=== PATIENT | female | born 1935 | race Caucasian/White ===

== ENCOUNTER 2017-05-25 22:33 | Emergency (ER) | payer OTHER ==
[~2017-05-25] VITALS: Ht 157.5 cm; Wt 56.0 kg
[~2017-05-25 22:33] MED LIST: AMLO10 PO; ATEN-104 PO; TERA2CAP3 PO
[2017-05-25 22:34] VITALS: BP 178/95; PULSE 85; RESP 16; TEMP 98.5; O2SAT 95
[2017-05-25 23:08] VITALS: BP 232/99; PULSE 73; RESP 18; O2SAT 97
[2017-05-25 23:12] VITALS: TEMP 97
[2017-05-25 23:42] VITALS: O2SAT 99
--- NOTE | 2017-05-25 23:44 | PD ---
HPI Chief Complaint: Neuro Symptoms/ Deficits Time Seen by Provider: 23:35 Travel History International Travel<30 days: No Contact w/Intl Traveler<30days: No Traveled to known affect area: No History of Present Illness HPI C/O NUMBNESS TO RIGHT FACE THAT HAS NOT GONE AWAY IN THE PAST 6HRS, PER PATIENT HER PCP IS DR MEZA, CAN'T RECALL NAMES OF ANTIHYPERTENSION MEDICINE. PATIENT ABLE TO MOVE/WALK ON HER OWN AND SPEAKS CLEARLY. PFSH Past Medical History Asthma: Yes Atrial Fibrillation: Yes Diminished Hearing: No Hypertension: Yes : 3 Para: 3 Past Surgical History Abdominal Surgery: Yes (BURST ADRENAL GLAND) Hysterectomy: Yes (PARTIAL IN ') Other Surgery: Yes Social History Alcohol Use: No Tobacco Use: No Substance Use: No Allergies-Medications (Allergen,Severity, Reaction): Coded Allergies: Sulfa (Sulfonamide Antibiotics) (Unverified Allergy, Severe, Swelling, ) HER MOUTH AND LIPS SWELL Reported Meds & Prescriptions Reported Meds & Active Scripts Active Active Prescriptions or Reported Medications Unobtainable Review of Systems Except as stated in HPI: all other systems reviewed are Neg Cardiovascular: Positive: Other (HTN) Neurologic: Positive: Paresthesia Physical Exam Narrative GENERAL: SKIN: Warm and dry. HEAD: Atraumatic. Normocephalic. EYES: Pupils equal and round. No scleral icterus. No injection or drainage. ENT: No nasal bleeding or discharge. Mucous membranes pink and moist. NECK: Trachea midline. No JVD. CARDIOVASCULAR: Regular rate and rhythm. RESPIRATORY: No accessory muscle use. Clear to auscultation. Breath sounds equal bilaterally. GASTROINTESTINAL: Abdomen soft, non-tender, nondistended. Hepatic and splenic margins not palpable. MUSCULOSKELETAL: Extremities without clubbing, cyanosis, or edema. No obvious deformities. NEUROLOGICAL: Awake and alert. No obvious cranial nerve deficits. Motor grossly within normal limits. Five out of 5 muscle strength in the arms and legs. Normal speech. ONLY DECREASED SENSATION TO RIGHT HALF OF FACE PSYCHIATRIC: Appropriate mood and affect; insight and judgment normal. Data Data Last Documented VS Vital Signs Date Time Temp Pulse Resp B/P (MAP) Pulse Ox O2 Delivery O2 Flow Rate FiO2 05/26/17 00:13 156/75 (102) 05/25/17 23:42 99 05/25/17 23:12 97.0 05/25/17 23:08 73 18 Room Air Orders Orders Electrocardiogram (05/25/17 23:35) Complete Blood Count With Diff (05/25/17 23:35) Comprehensive Metabolic Panel (05/25/17 23:35) Ckmb (Isoenzyme) Profile (05/25/17 23:35) Troponin I (05/25/17 23:35) B-Type Natriuretic Peptide (05/25/17 23:35) Prothrombin Time / Inr (Pt) (05/25/17 23:35) Act Partial Throm Time (Ptt) (05/25/17 23:35) Lipase (05/25/17 23:35) Chest, Single Ap (05/25/17 23:35) Ct Brain W/O Iv Contrast(Rout) (05/25/17 23:35) Iv Access Insert/Monitor (05/25/17 23:35) Ecg Monitoring (05/25/17 23:35) Oximetry (05/25/17 23:35) Hydralazine Inj (Apresoline Inj) (05/25/17 23:45) Labs Laboratory Tests Test 05/25/17 23:45 White Blood Count 6.2 TH/MM3 Red Blood Count 4.35 MIL/MM3 Hemoglobin 13.5 GM/DL Hematocrit 38.8 % Mean Corpuscular Volume 89.2 FL Mean Corpuscular Hemoglobin 30.9 PG Mean Corpuscular Hemoglobin Concent 34.7 % Red Cell Distribution Width 13.3 % Platelet Count 244 TH/MM3 Mean Platelet Volume 7.3 FL Neutrophils (%) (Auto) 64.0 % Lymphocytes (%) (Auto) 18.4 % Monocytes (%) (Auto) 14.8 % Eosinophils (%) (Auto) 1.5 % Basophils (%) (Auto) 1.3 % Neutrophils # (Auto) 4.0 TH/MM3 Lymphocytes # (Auto) 1.1 TH/MM3 Monocytes # (Auto) 0.9 TH/MM3 Eosinophils # (Auto) 0.1 TH/MM3 Basophils # (Auto) 0.1 TH/MM3 CBC Comment DIFF FINAL Differential Comment Prothrombin Time 10.5 SEC Prothromb Time International Ratio 1.0 RATIO Activated Partial Thromboplast Time 25.7 SEC Blood Urea Nitrogen 17 MG/DL Creatinine 0.65 MG/DL Random Glucose 98 MG/DL Total Protein 6.9 GM/DL Albumin 3.8 GM/DL Calcium Level 8.6 MG/DL Alkaline Phosphatase 96 U/L Aspartate Amino Transf (AST/SGOT) 11 U/L Alanine Aminotransferase (ALT/SGPT) 9 U/L Total Bilirubin 0.5 MG/DL Sodium Level 133 MEQ/L Potassium Level 3.8 MEQ/L Chloride Level 99 MEQ/L Carbon Dioxide Level 24.7 MEQ/L Anion Gap 9 MEQ/L Estimat Glomerular Filtration Rate 87 ML/MIN Total Creatine Kinase 54 U/L Troponin I LESS THAN 0.02 NG/ML B-Type Natriuretic Peptide 11 PG/ML Lipase 519 U/L MDM Medical Decision Making Medical Screen Exam Complete: Yes Emergency Medical Condition: Yes Medical Record Reviewed: Yes Interpretation(s) NSR 66, FIRST DEGREE AV BLOCK, NO STEMI PATTERN Differential Diagnosis ICH V CVA V HTN URGENCY V HTN ENCEPHALOPATHY Narrative Course CT HEAD NEG FOR ICH, ON EKG NO E/O STEMI, NEG TROPONIN, NORMAL KIDNEY FUNCTION, AND PATIENT'S BLOOD PRESSURE DECREASED APPROPRIATELY WITHOUT DIFFICULTY AND NO WORSENING OF SYMPTOMS DURING EXAM. Critical Care Narrative CRITICAL CARE NOTE: With evaluation of the patient, labs, EKG, receipt of radiologic studies, administration of medications, reevaluation the patient and discussion of the patient with the admitting physicians, the total critical care time was [60] minutes. Time to perform other separately billable procedures was not included in the critical care time. Diagnosis Primary Impression: Hypertensive urgency Additional Impressions: PARESTHESIA ASYMPTOMATIC ELEVATION OF LIPASE Patient Instructions: Chronic Hypertension (ED), General Instructions Additional Instructions: PLEASE CALL AND MAKE FOLLOWUP APPOINTMENT WITH DR MEZA FOR FURTHER BLOOD PRESSURE CONTROL Scripts Unable to Obtain Active Prescriptions or Reported Meds Disposition: 01 DISCHARGE HOME Condition: Stable Haris Hunter MD May 25, 2017 23:44
[2017-05-25] MEDS ORDERED: hydrALAZINE HCL 20 MG/ML VIAL IV PUSH ONE (23:45)
[2017-05-26 00:10] LABS: BASOPHIL # 0.1 TH/MM3 (0-0.2); BASOPHIL % 1.3 % (0.0-2.0); EOSINOPHIL # 0.1 TH/MM3 (0-0.4); EOSINOPHIL % 1.5 % (0.0-4.0); HEMATOCRIT 38.8 % (35.0-46.0); HEMO FLAGS DIFF FINAL; LYMPH % 18.4 % (9.0-44.0); LYMPHOCYTE # 1.1 TH/MM3 (1.0-4.8); MEAN CELL VOLUME 89.2 FL (80.0-100.0); MEAN CORPUSCULAR HEMOGLOBIN 30.9 PG (27.0-34.0); MEAN CORPUSCULAR HGB CONC 34.7 % (32.0-36.0); MONO % 14.8 % (0.0-8.0); PLATELET COUNT 244 TH/MM3 (150-450); RED BLOOD COUNT 4.35 MIL/MM3 (4.00-5.30); RED CELL DISTRIBUTION WIDTH 13.3 % (11.6-17.2); WHITE BLOOD COUNT 6.2 TH/MM3 (4.0-11.0)
[2017-05-26 00:13] VITALS: BP 156/75
[2017-05-26 00:16] LABS: ANION GAP 9 MEQ/L (5-15); AST (GOT) 11 U/L (15-37); BICARBONATE 24.7 MEQ/L (21.0-32.0); BLOOD UREA NITROGEN 17 MG/DL (7-18); CHLORIDE 99 MEQ/L (98-107); GLOMERULAR FILTRATION RATE 87 ML/MIN (>89); POTASSIUM 3.8 MEQ/L (3.5-5.1); SODIUM (NA) 133 MEQ/L (136-145)
[2017-05-26 00:17] LABS: APTT (PATIENT) 25.7 SEC (24.3-30.1); PROTHROMBIN TIME - PATIENT 10.5 SEC (9.8-11.6)
--- NOTE | 2017-05-26 00:19 | RADRPT ---
EXAM DATE/TIME: 05/25/2017 23:46 [facility] COMPARISON: No previous studies available for comparison. INDICATIONS : Short of breath. MEDICAL HISTORY : None. SURGICAL HISTORY : None. ENCOUNTER: Initial ACUITY: 1 day PAIN SCORE: 0/10 LOCATION: Bilateral chest FINDINGS: A single view of the chest demonstrates the lungs to be symmetrically aerated without evidence of mas s, infiltrate or effusion. Minimal linear scarring at the lung bases. The cardiomediastinal contours are unremarkable. Osseous structures are intact. CONCLUSION: 1. Minimal linear scarring at the lung bases. No consolidation or effusion. Mild scoliosis. Ricky Masters MD on May 26, 2017 at 0:16 Board Certified Radiologist. This report was verified electronically.
[2017-05-26 00:20] LABS: ALKALINE PHOSPHATASE 96 U/L (45-117); ALT (GPT) 9 U/L (10-53); TOTAL BILIRUBIN ADULT 0.5 MG/DL (0.2-1.0)
[2017-05-26 00:22] LABS: CREATINE KINASE 54 U/L (26-192)
--- NOTE | 2017-05-26 01:29 | RADRPT ---
EXAM DATE/TIME: 05/26/2017 01:07 [facility] COMPARISON: No previous studies available for comparison. INDICATIONS : Headaches. RADIATION DOSE: 31.90 CTDIvol (mGy) MEDICAL HISTORY : Cardiovascular disease. Hypertension. SURGICAL HISTORY : Hysterectomy. ENCOUNTER: Initial ACUITY: 1 day PAIN SCALE: 5/10 LOCATION: Right cranial TECHNIQUE: Multiple contiguous axial images were obtained of the head. Using automated exposure control and adj ustment of the mA and/or kV according to patient size, radiation dose was kept as low as reasonably a chievable to obtain optimal diagnostic quality images. DICOM format image data is available electro nically for review and comparison. FINDINGS: CEREBRUM: The ventricles are normal for age. No evidence of midline shift, mass lesion, hemorrhage or acute in farction. No extra-axial fluid collections are seen. POSTERIOR FOSSA: The cerebellum and brainstem are intact. The 4th ventricle is midline. The cerebellopontine angle i s unremarkable. EXTRACRANIAL: The visualized portion of the orbits is intact. SKULL: The calvaria is intact. No evidence of skull fracture. CONCLUSION: Normal examination. Ricky Masters MD on May 26, 2017 at 1:25 Board Certified Radiologist. This report was verified electronically.
[2017-05-26] MEDS ORDERED: BUTA1CAP2 PO (01:39)
[2017-05-26] MEDS ORDERED: traMADol HCL 50 MG TAB PO ONE (01:45)
--- NOTE | 2017-05-26 12:13 | EKG ---
Date Performed: 05/25/2017 Time Performed: 23:11:55 PTAGE: 81 years EKG: Sinus rhythm WITH FIRST DEGREE AV BLOCK ABNORMAL ECG Compared to prior tracing no significant change PREVIOUS TRACING : 04/23/1993 15.26 DOCTOR: Danie Chen Interpretating Date/Time 05/26/2017 12:10:22
== END 2017-05-26 01:54 | disposition home or self-care (01) ==
LOC: NEPE 22:33
DX: I16.0 Hypertensive urgency (principal); I48.91 Unspecified atrial fibrillation
CPT/HCPCS: 70450; 71010; 80053; 82550; 83690; 83880; 84484; 85025; 85610; 85730; 93005; 96374; 99291; J0360

== ENCOUNTER 2018-02-15 11:49 | Inpatient (IN) | payer OTHER ==
[2018-02-15] VITALS (7 sets, daily range): BP systolic 130–198; BP diastolic 61–89; PULSE 67–84; RESP 18–20; TEMP 97.2–97.4; O2SAT 97–99
[~2018-02-15] VITALS: Ht 162.6 cm; Wt 67.0 kg
[~2018-02-15 11:49] MED LIST changes: -AMLO10 PO; -ATEN-104 PO; +BUTA1CAP2 PO; -TERA2CAP3 PO
[2018-02-15] MEDS ORDERED: [UNRECOGNIZED DRUG - REMARK] PO (12:26)
[2018-02-15] MEDS ORDERED: [UNRECOGNIZED DRUG - REMARK] PO (12:26)
[2018-02-15] MEDS ORDERED: SODIUM CHLORIDE 0.9% FLUSH 10 ML FLUSH IV FLUSH PRN ×2 (12:30→16:15)
[2018-02-15 12:43] LABS: AUTOMATED NEUTROPHIL # 11.6 TH/MM3 (1.8-7.7); BASOPHIL # 0.1 TH/MM3 (0-0.2); BASOPHIL % 0.5 % (0.0-2.0); HEMATOCRIT 39.5 % (35.0-46.0); HEMOGLOBIN 13.6 GM/DL (11.6-15.3); LYMPH % 3.4 % (9.0-44.0); LYMPHOCYTE # 0.5 TH/MM3 (1.0-4.8); MEAN CORPUSCULAR HEMOGLOBIN 30.3 PG (27.0-34.0); MEAN CORPUSCULAR HGB CONC 34.5 % (32.0-36.0); MONO % 9.6 % (0.0-8.0); MONOCYTE # 1.3 TH/MM3 (0-0.9); NEUT % 86.5 % (16.0-70.0); PLATELET COUNT 275 TH/MM3 (150-450); RED BLOOD COUNT 4.49 MIL/MM3 (4.00-5.30); RED CELL DISTRIBUTION WIDTH 13.4 % (11.6-17.2); WHITE BLOOD COUNT 13.4 TH/MM3 (4.0-11.0)
[2018-02-15 13:10] LABS: ALBUMIN 3.7 GM/DL (3.4-5.0); ALKALINE PHOSPHATASE 80 U/L (45-117); ALT (GPT) 1112 U/L (10-53); AST (GOT) 573 U/L (15-37); BICARBONATE 21.5 MEQ/L (21.0-32.0); BLOOD UREA NITROGEN 20 MG/DL (7-18); CALCIUM 8.7 MG/DL (8.5-10.1); CHLORIDE 91 MEQ/L (98-107); CREATININE 0.75 MG/DL (0.50-1.00); GLOMERULAR FILTRATION RATE 74 ML/MIN (>89); GLUCOSE,RANDOM 134 MG/DL (74-106); TOTAL PROTEIN 6.4 GM/DL (6.4-8.2)
[2018-02-15 13:14] LABS: SODIUM (NA) 123 MEQ/L (136-145)
[2018-02-15] MEDS ORDERED: SODIUM CHLOR 0.9% 1000 ML INJ 1,000 ML IV ONE (13:15)
--- NOTE | 2018-02-15 13:26 | PD ---
HPI . Abdominal pain Chief Complaint: Neuro Symptoms/ Deficits Time Seen by Provider: 12:13 Travel History International Travel<30 days: No Contact w/Intl Traveler<30days: No Traveled to known affect area: No History of Present Illness HPI Patient presents with a chief complaint to me of mid abdominal pain. The chief complaint at triage was facial numbness. Patient reports onset of mid abdominal pain 3 days ago. She describes it as crampy. It is getting progressively worse. It is rated 10/10. It is associated with a few episodes of emesis and one loose she denies fever. She denies urinary tract symptoms. Patient is status post colostomy with reversal. [facility] Past Medical History Asthma: Yes Atrial Fibrillation: Yes Diminished Hearing: No Hypertension: Yes Tetanus Vaccination: > 5 Years ?: Not : 3 Para: 3 Past Surgical History Abdominal Surgery: Yes (BURST ADRENAL GLAND) Hysterectomy: Yes (PARTIAL IN ) Other Surgery: Yes Social History Alcohol Use: No Tobacco Use: No Substance Use: No Allergies-Medications (Allergen,Severity, Reaction): Coded Allergies: Sulfa (Sulfonamide Antibiotics) (Unverified Allergy, Severe, Swelling, ) HER MOUTH AND LIPS SWELL Reported Meds & Prescriptions Reported Meds & Active Scripts Active Reported [headache pill] PO DAILY [htn pill] PO DAILY Review of Systems Except as stated in HPI: all other systems reviewed are Neg General / Constitutional: No: Fever, Chills Gastrointestinal: Positive: Nausea, Vomiting, Diarrhea, Abdominal Pain Genitourinary: No: Urgency, Frequency, Dysuria Neurologic: Positive: Paresthesia Physical Exam Narrative GENERAL: Awake and alert and in no acute distress. SKIN: warm/dry. HEAD: Normocephalic. Atraumatic. EYES: Pupils equal and round. Extraocular movements are intact. Anicteric. ENT: Mucous membranes pink and moist. NECK: Supple. Full range of motion without pain.. CARDIOVASCULAR: Regular rate and rhythm. Heart sounds are normal. RESPIRATORY: No accessory muscle use. Clear to auscultation. Breath sounds equal bilaterally. GASTROINTESTINAL: Abdomen soft. Right upper quadrant tenderness. Bowel sounds present. Nondistended. Well-healed previous colostomy/reversal scar in the left lower quadrant. MUSCULOSKELETAL: No obvious deformities. Normal muscle tone. NEUROLOGICAL: Awake and alert. No obvious cranial nerve deficits. Motor grossly within normal limits. Normal speech. PSYCHIATRIC: Appropriate mood and affect; insight and judgment normal. Data Data Last Documented VS Vital Signs Date Time Temp Pulse Resp B/P (MAP) Pulse Ox O2 Delivery O2 Flow Rate FiO2 02/15/18 14:32 67 18 183/81 (115) 99 Room Air 02/15/18 12:00 97.2 Orders Orders Complete Blood Count With Diff (02/15/18 12:23) Comprehensive Metabolic Panel (02/15/18 12:23) Lipase (02/15/18 12:23) Urinalysis - C+S If Indicated (02/15/18 12:23) Ct Abd/Pel W Iv Contrast(Rout) (02/15/18 12:23) Iv Access Insert/Monitor (02/15/18 12:23) Ecg Monitoring (02/15/18 12:23) Oximetry (02/15/18 12:23) Sodium Chloride 0.9% Flush (Ns Flush) (02/15/18 12:30) Electrocardiogram (02/15/18 12:23) Sodium Chlor 0.9% 1000 Ml Inj (Ns 1000 M (02/15/18 13:15) Iohexol 350 Inj (Omnipaque 350 Inj) (02/15/18 13:40) Piperacil-Tazo 3.375 Gm Premix (Zosyn 3. (02/15/18 15:15) Consult General Surgery (02/15/18 ) Urine Culture (02/15/18 14:30) (Hub Use Only)Inp Phy Cons/Ref (02/15/18 ) Consult [place] Nfs (02/15/18 ) Us Abdomen Gallbladder (02/15/18 ) Labs Laboratory Tests Test 02/15/18 12:30 02/15/18 14:30 White Blood Count 13.4 TH/MM3 Red Blood Count 4.49 MIL/MM3 Hemoglobin 13.6 GM/DL Hematocrit 39.5 % Mean Corpuscular Volume 88.0 FL Mean Corpuscular Hemoglobin 30.3 PG Mean Corpuscular Hemoglobin Concent 34.5 % Red Cell Distribution Width 13.4 % Platelet Count 275 TH/MM3 Mean Platelet Volume 7.0 FL Neutrophils (%) (Auto) 86.5 % Lymphocytes (%) (Auto) 3.4 % Monocytes (%) (Auto) 9.6 % Eosinophils (%) (Auto) 0.0 % Basophils (%) (Auto) 0.5 % Neutrophils # (Auto) 11.6 TH/MM3 Lymphocytes # (Auto) 0.5 TH/MM3 Monocytes # (Auto) 1.3 TH/MM3 Eosinophils # (Auto) 0.0 TH/MM3 Basophils # (Auto) 0.1 TH/MM3 CBC Comment DIFF FINAL Differential Comment Blood Urea Nitrogen 20 MG/DL Creatinine 0.75 MG/DL Random Glucose 134 MG/DL Total Protein 6.4 GM/DL Albumin 3.7 GM/DL Calcium Level 8.7 MG/DL Alkaline Phosphatase 80 U/L Aspartate Amino Transf (AST/SGOT) 573 U/L Alanine Aminotransferase (ALT/SGPT) 1112 U/L Total Bilirubin 2.0 MG/DL Sodium Level 123 MEQ/L Potassium Level 3.8 MEQ/L Chloride Level 91 MEQ/L Carbon Dioxide Level 21.5 MEQ/L Anion Gap 11 MEQ/L Estimat Glomerular Filtration Rate 74 ML/MIN Lipase 289 U/L Urine Color Julainn Urine Turbidity HAZY Urine pH 5.0 Urine Specific [place] 1.034 Urine Protein NEG mg/dL Urine Glucose (UA) NEG mg/dL Urine Ketones TRACE mg/dL Urine Occult Blood MOD Urine Nitrite NEG Urine Bilirubin NEG Urine Urobilinogen 4.0 OR GREATER mg/dL Urine Leukocyte Esterase MOD Urine RBC 2 /hpf Urine WBC 18 /hpf Urine Squamous Epithelial Cells 2 /hpf Urine Bacteria MANY /hpf Urine Mucus FEW /lpf Microscopic Urinalysis Comment CULTURE INDICATED MDM Medical Decision Making Medical Screen Exam Complete: Yes Emergency Medical Condition: Yes Interpretation(s) EKG shows a sinus rhythm with first-degree AV block. No acute ischemic changes. Differential Diagnosis Differential diagnosis of abdominal pain includes but is not limited to gastritis, pancreatitis, hepatitis, gastroenteritis, constipation, urinary retention, peptic ulcer disease, diverticulitis or appendicitis Narrative Course This patient presents with a chief complaint of mid abdominal pain with some occasional emesis and one loose stool. She has had previous abdominal surgery. CBC & BMP Diagram 02/15/18 12:30 Total Protein 6.4, Albumin 3.7, Calcium Level 8.7, Alkaline Phosphatase 80, Aspartate Amino Transf (AST/SGOT) 573 H, Alanine Aminotransferase (ALT/SGPT) 1112 H, Total Bilirubin 2.0 H I have ordered a liter of fluid. UA indicates a urinary tract infection. Zosyn has already been ordered for acute cholecystitis. It should cover a UTI as well. Last Impressions Abdomen/Pelvis CT 02/15/18 1223 Signed Impressions: CONCLUSION: 1. Moderately distended gallbladder with questionable trace pericholecystic fl uid. Cannot exclude acute cholecystitis in the appropriate clinical setting. Co nsider further evaluation with ultrasound exam. 2. Mild airspace consolidation in the inferior lingula and right middle lobe w hich may reflect aspiration, if so likely chronic. 3. Ancillary findings include sigmoid diverticulosis, small hiatal hernia, deg enerative spondylosis of the lumbar spine and probable leiomyomatous uterus. Physician Communication Physician Communication Dr. Cisse Diagnosis Primary Impression: Abdominal pain Qualified Codes: R10.84 - Generalized abdominal pain Additional Impressions: Hyponatremia Acute cholecystitis Urinary tract infection Qualified Codes: N39.0 - Urinary tract infection, site not specified Admitting Information Admitting Physician Requests: Admit Condition: Stable Veronica Iyer MD Feb 15, 2018 13:25
[2018-02-15] MEDS ORDERED: IOHEXOL 350 MG/ML 10 ML VIAL (for RAD DIAG) IVCONTRAST ONE (13:40)
--- NOTE | 2018-02-15 14:48 | RADRPT ---
EXAM DATE: 02/15/2018 1:53 PM EDT AGE/SEX: 82 years / Female INDICATIONS: Diffuse abdomen pain for two days. CLINICAL DATA: This is the patient's initial encounter. Patient reports that signs and symptoms have been present for 2 days and indicates a pain score of 5/10. MEDICAL/SURGICAL HISTORY: Hypertension. Hysterectomy. ORAL CONTRAST: No oral contrast ingested. RADIATION DOSE: 6.64 CTDI (mGy) COMPARISON: No prior exams available for comparison. TECHNIQUE: Multiple contiguous axial images were obtained through the abdomen and pelvis following b olus infusion of 80 ml Omnipaque 350 (iohexol) nonionic water-soluble contrast as a single exam dos e. No oral contrast ingested. Using automated exposure control and adjustment of the mA and/or kV ac cording to patient size, the radiation dose was kept as low as reasonably achievable to obtain optima l diagnostic quality images. FINDINGS: Visualization is limited by motion artifact. LOWER LUNGS: Mild airspace consolidation in the inferior lingula and right middle lobe. LIVER: The liver has a homogeneous density without space-occupying lesion. There is no dilation of t he biliary tree. Gallbladder is moderately distended with questionable trace pericholecystic fluid. SPLEEN: Homogeneous density without enlargement. PANCREAS: Unremarkable without mass or calcification. KIDNEYS: Kidneys demonstrate symmetrical enhancement and are symmetrical in size without evidence fo r radiopaque renal calculi or hydronephrosis. ADRENAL GLANDS: Unremarkable. AORTA: Moderate vascular calcifications of the abdominal aorta without aneurysm. BOWEL/MESENTERY: Sigmoid diverticulosis. Small hiatal hernia. No dilated loops of bowel. No free flu id or drainable fluid collections. ABDOMINAL WALL: Intact. RETROPERITONEUM: No evidence of adenopathy in the retrocrural, para-aortic, or deep pelvic regions. BLADDER: Contours are smooth. REPRODUCTIVE: Patient reportedly has had a hysterectomy. However, there is destruction the pelvis co nsistent with uterus containing a partially calcified myometrial mass. BONY STRUCTURES: Multilevel degenerative spondylosis of the lumbar spine. CONCLUSION: 1. Moderately distended gallbladder with questionable trace pericholecystic fluid. Cannot exclude ac venetie ira cholecystitis in the appropriate clinical setting. Consider further evaluation with ultrasound ex am. 2. Mild airspace consolidation in the inferior lingula and right middle lobe which may reflect aspir ation, if so likely chronic. 3. Ancillary findings include sigmoid diverticulosis, small hiatal hernia, degenerative spondylosis of the lumbar spine and probable leiomyomatous uterus. Electronically signed by: Luis Enrique Camilo MD 02/15/2018 2:46 PM EDT
[2018-02-15 15:05] LABS: BACTERIA, URINE MANY /hpf; BILIRUBIN, URINE NEG (NEG); BLOOD, URINE MOD (NEG); GLUCOSE,URINE NEG (NEG); KETONE, URINE TRACE mg/dL (NEG); MUCUS URINE FEW /lpf (OCC); NITRITE,URINE NEG (NEG); SQUAMOUS EPITHELIAL CELL URINE 2 /hpf (0-5); URINE COLOR Amber (YELLW/STRAW); URINE LEUKOCYTE ESTERASE MOD (NEG)
[2018-02-15] MEDS ORDERED: PIPERACIL-TAZO 3.375 GM PREMIX 50 ML IV ONE (15:15)
[2018-02-15] MEDS ORDERED: BISACODYL 10 MG SUPP RECTAL PRN (16:15)
[2018-02-15] MEDS ORDERED: NALOXONE HCL 0.4 MG/ML AMP IV PUSH PRN (16:15)
[2018-02-15] MEDS ORDERED: MAGNESIUM HYDROXIDE SUSP 30 ML CUP PO PRN (16:15)
[2018-02-15] MEDS ORDERED: SENNOSIDES 8.6 MG TAB PO PRN (16:15)
[2018-02-15] MEDS ORDERED: LACTULOSE SYRUP 20 GM/30 ML CUP PO PRN (16:15)
[2018-02-15] MEDS: SODIUM CHLOR 0.9% 1000 ML INJ 1,000 ML IV SCH ×2 (17:06→20:44)
--- NOTE | 2018-02-15 17:07 | PD.CONS ---
HPI History of Present Illness This is a 82 year old F with PMH significant for diverticular perforation S/O colostomy approximately 2 years ago which has since been reversed, a-fib, HTN, and asthma who presented to the ER with complaints of LUQ and mid epigastric abdominal pain that she states began three days ago. Pain has been constant, described as a cramping sensation and progressively getting worse over the past couple days. Also reports diarrhea for the past two days, denies any blood in her stool. Also has had some nausea and vomiting yesterday, none today. Our service has been consulted to evaluate pt for elevated LFTs. Pt denies any known liver issues. Of note, reports taking Tylenol, 1000mg every three hours for two years for chronic headaches. Pt denies any other OTC medications as well as herbs and supplements. Surgery has also been consulted regarding CT findings suggesting possibility of acute cholecystitis, US abdomen has been ordered. (Lisa Dia) PFSH Past Medical History HTN A-fib Diverticular perforation S/P colostomy and reversal Past Surgical History Colostomy S/P reversal (Lisa Dia) Coded Allergies: Sulfa (Sulfonamide Antibiotics) (Verified Allergy, Severe, Swelling, ) HER MOUTH AND LIPS SWELL Social History Denies ETOH and smoking (Lisa Dia) Review of Systems Gastrointestinal: COMPLAINS OF: Abdominal pain, Diarrhea, Nausea, Vomiting, DENIES: Black stools, Bloody stools, Constipation, Difficulty Swallowing, Odynophagia, Swelling of Abdomen, Heartburn, Hematemesis (Lisa Dia) GI Exam Vitals I&O Vital Signs Date Time Temp Pulse Resp B/P (MAP) Pulse Ox O2 Delivery O2 Flow Rate FiO2 02/15/18 14:32 67 18 183/81 (115) 99 Room Air 02/15/18 12:27 97 Room Air 02/15/18 12:00 97.2 73 20 130/61 (84) 99 Imaging Last Impressions Abdomen/Pelvis CT 02/15/18 1223 Signed Impressions: CONCLUSION: 1. Moderately distended gallbladder with questionable trace pericholecystic fl uid. Cannot exclude acute cholecystitis in the appropriate clinical setting. Co nsider further evaluation with ultrasound exam. 2. Mild airspace consolidation in the inferior lingula and right middle lobe w hich may reflect aspiration, if so likely chronic. 3. Ancillary findings include sigmoid diverticulosis, small hiatal hernia, deg enerative spondylosis of the lumbar spine and probable leiomyomatous uterus. Laboratory Test 02/15/18 12:30 02/15/18 14:30 White Blood Count 13.4 TH/MM3 Red Blood Count 4.49 MIL/MM3 Hemoglobin 13.6 GM/DL Hematocrit 39.5 % Mean Corpuscular Volume 88.0 FL Mean Corpuscular Hemoglobin 30.3 PG Mean Corpuscular Hemoglobin Concent 34.5 % Red Cell Distribution Width 13.4 % Platelet Count 275 TH/MM3 Mean Platelet Volume 7.0 FL Neutrophils (%) (Auto) 86.5 % Lymphocytes (%) (Auto) 3.4 % Monocytes (%) (Auto) 9.6 % Eosinophils (%) (Auto) 0.0 % Basophils (%) (Auto) 0.5 % Neutrophils # (Auto) 11.6 TH/MM3 Lymphocytes # (Auto) 0.5 TH/MM3 Monocytes # (Auto) 1.3 TH/MM3 Eosinophils # (Auto) 0.0 TH/MM3 Basophils # (Auto) 0.1 TH/MM3 CBC Comment DIFF FINAL Differential Comment Blood Urea Nitrogen 20 MG/DL Creatinine 0.75 MG/DL Random Glucose 134 MG/DL Total Protein 6.4 GM/DL Albumin 3.7 GM/DL Calcium Level 8.7 MG/DL Alkaline Phosphatase 80 U/L Aspartate Amino Transf (AST/SGOT) 573 U/L Alanine Aminotransferase (ALT/SGPT) 1112 U/L Total Bilirubin 2.0 MG/DL Sodium Level 123 MEQ/L Potassium Level 3.8 MEQ/L Chloride Level 91 MEQ/L Carbon Dioxide Level 21.5 MEQ/L Anion Gap 11 MEQ/L Estimat Glomerular Filtration Rate 74 ML/MIN Lipase 289 U/L Urine Color Juliann Urine Turbidity HAZY Urine pH 5.0 Urine Specific [place] 1.034 Urine Protein NEG mg/dL Urine Glucose (UA) NEG mg/dL Urine Ketones TRACE mg/dL Urine Occult Blood MOD Urine Nitrite NEG Urine Bilirubin NEG Urine Urobilinogen 4.0 OR GREATER mg/dL Urine Leukocyte Esterase MOD Urine RBC 2 /hpf Urine WBC 18 /hpf Urine Squamous Epithelial Cells 2 /hpf Urine Bacteria MANY /hpf Urine Mucus FEW /lpf Microscopic Urinalysis Comment CULTURE INDICATED Date/Time Source Procedure Growth Status 02/15/18 14:30 Urine Random Urine Urine Culture Pending Received Physical Examination HEENT: Normocephalic; atraumatic CHEST: Even/unlabored ABDOMEN: Soft, nondistended, LUQ and epigastric tenderness, bowel sounds active EXTREMITIES: No clubbing, cyanosis, or edema. SKIN: Normal; no rash; no jaundice. DINING ROOM HELPER: Alert and oriented times three. (Lisa Dia) Assessment and Plan Plan Assessment: - Elevated LFTs T bili-2 [id number] ALT-[id number] Pt denies history of liver issues. Denies ETOH. Of note, has been taking 1000mg of Tylenol q 3hs for 2 years for headaches. Denies any other OTC medications, herbs, supplements. CT abdomen and pelvis W IV contrast --> Moderately distended gallbladder with questionable trace pericholecystic fluid. Ancillary findings include sigmoid diverticulosis, small hiatal hernia. US abdomen pending. Hepatitis panel pending Plan: Hepatitis panel US abdomen Acetaminophen level Acetylcysteine, 3 doses total, discussed with pharmacy Further recommendations based on clinical course Pt has been seen and examined by myself and Dr. Rhodes and this note is written on his behalf (Lisa Dia) Physician Comments Seen and examined with [facility], Elevated lfts probably due to heavy acetaminophen use over the last two years. She states she has been taking 1000mg every 3 hours for the last 2 years for migraines. Will check acetaminophen levels but start mucomyst per protocol x 3 doses. Monitor lafts. Check INR and monitor for encephalopathy. U/S liver. Hepatitis profile. Thank you (Graciela Rhodes MD) Lisa Dia Feb 15, 2018 17:07 Graciela Rhodes MD Feb 15, 2018 18:29
--- NOTE | 2018-02-15 17:39 | PD.CONS ---
cc: Nena Chris MD HPI Service General Surgery Consult Requested By Dr. Iyer Reason for Consult Cholecystis Primary Care Physician Anam Klein, DO History of Present Illness This is an 82 year old female with a past medical history of carotid stenosis, hypertension, diverticulitis with perforation and asthma who presented to the ED today with complaints of a headache and abdominal pain for about 3-4 days. She did have some mild nausea yesterday. Since then the abdominal pain has essentially resolved. She does report talking 1000 mg of Tylenol every three hours for the last two years for headaches. She was told to take that dose by her PCP per the patient and her . She had a colon resection with colostomy placement for acute diverticulitis episode with perforation about two years ago. The surgery was done at [facility] by Dr. Samson. The colostomy was reversed about a year and a half ago. A CT abdomen/pelvis was obtained which does show a distend gallbladder with some trace pericholecystic fluid. She does have a mildly elevated WBC. Her sodium level is 123. Her total bilirubin is elevated along her ALEJANDRA and AST. A General Surgery consultation has been requested. Review of Systems Constitutional: DENIES: Fatigue, Chills, Change in appetite Endocrine: DENIES: Polydipsia, Polyuria, Polyphagia Eyes: DENIES: Diplopia, Eye inflammation Ears, nose, mouth, throat: DENIES: Hearing loss Respiratory: DENIES: Cough Cardiovascular: DENIES: Chest pain Gastrointestinal: COMPLAINS OF: Abdominal pain, Nausea, Vomiting Genitourinary: DENIES: Urinary frequency Musculoskeletal: DENIES: Joint pain Integumentary: DENIES: Abnormal pigmentation Hematologic/lymphatic: DENIES: Bruising Immunologic/allergic: DENIES: Eczema Neurologic: COMPLAINS OF: Headache, Tremor Psychiatric: DENIES: Confusion, Mood changes, Depression Past Family Social History Past Medical History Carotid stenosis Hypertension Asthma Past Surgical History S/p colon resection with colostomy; colostomy reversal Tonsillectomy as a child Reported Medications Donepezil Lovastatin Amlodipine Lisinopril-HCTZ Topamax Zoloft Risperdal Allergies: Coded Allergies: Sulfa (Sulfonamide Antibiotics) (Verified Allergy, Severe, Swelling, ) HER MOUTH AND LIPS SWELL Active Ordered Medications Current Medications Medications (Trade) Dose Ordered Sig/Sawyer Route Start Time Stop Time Status Last Admin Piperacillin Sod/ Tazobactam Sod 50 ml @ 100 mls/hr Q6H IV 02/15/18 22:00 Sodium Chloride 1,000 ml @ 100 mls/hr Q10H IV 02/15/18 16:02 02/15/18 17:06 (NS Flush) 2 ml UNSCH PRN IV FLUSH 02/15/18 16:15 (NS Flush) 2 ml BID IV FLUSH 02/15/18 21:00 (Reglan Inj) 5 mg Q6H PRN IV PUSH 02/15/18 16:15 (Narcan Inj) 0.4 mg UNSCH PRN IV PUSH 02/15/18 16:15 (Milk Of Magnesia Liq) 30 ml Q12H PRN PO 02/15/18 16:15 (Senokot) 17.2 mg Q12H PRN PO 02/15/18 16:15 (Dulcolax Supp) 10 mg DAILY PRN RECTAL 02/15/18 16:15 (Lactulose Liq) 30 ml DAILY PRN PO 02/15/18 16:15 (Vasotec Inj) 1.25 mg Q6H PRN IV PUSH 02/15/18 16:15 Acetylcysteine 60772 mg/Dextrose 252.5 ml @ 252.5 mls/ hr ONCE ONCE IV 02/15/18 18:00 02/15/18 18:59 Acetylcysteine 3500 mg/Dextrose 517.5 ml @ 129.375 mls/hr ONCE ONCE IV 02/15/18 19:00 02/15/18 22:59 Acetylcysteine 7000 mg/Dextrose 1,035 ml @ 64.688 mls/ hr ONCE ONCE IV 02/15/18 23:00 02/16/18 14:59 Family History Noncontributory Social History Denies tobacco use Denies ETOH use She has been to her for 61 years. They live in [place]. She is independent with her ALDs. She drives only short distances around town. Physical Exam Vital Signs Vital Signs Date Time Temp Pulse Resp B/P (MAP) Pulse Ox O2 Delivery O2 Flow Rate FiO2 02/15/18 14:32 67 18 183/81 (115) 99 Room Air 02/15/18 12:27 97 Room Air 02/15/18 12:00 97.2 73 20 130/61 (84) 99 Physical Exam GENERAL: Very pleasant 82 year old female resting in bed with a mild tremor. SKIN: Warm and dry. HEAD: Atraumatic. Normocephalic. EYES: Pupils equal and round. No scleral icterus. No injection or drainage. ENT: No nasal bleeding or discharge. Mucous membranes pink and moist. NECK: Trachea midline. CARDIOVASCULAR: Regular rate and rhythm. RESPIRATORY: No accessory muscle use. Clear to auscultation. Breath sounds equal bilaterally. GASTROINTESTINAL: Abdomen soft, non-tender, nondistended. Well healed midline incision and prior colostomy site. MUSCULOSKELETAL: Extremities without clubbing, cyanosis, or edema. No obvious deformities. NEUROLOGICAL: Awake and alert. No obvious cranial nerve deficits. Motor grossly within normal limits. Five out of 5 muscle strength in the arms and legs. Normal speech. PSYCHIATRIC: Appropriate mood and affect; insight and judgment normal. Laboratory Laboratory Tests Test 02/15/18 12:30 02/15/18 14:30 02/15/18 16:36 White Blood Count 13.4 Red Blood Count 4.49 Hemoglobin 13.6 Hematocrit 39.5 Mean Corpuscular Volume 88.0 Mean Corpuscular Hemoglobin 30.3 Mean Corpuscular Hemoglobin Concent 34.5 Red Cell Distribution Width 13.4 Platelet Count 275 Mean Platelet Volume 7.0 Neutrophils (%) (Auto) 86.5 Lymphocytes (%) (Auto) 3.4 Monocytes (%) (Auto) 9.6 Eosinophils (%) (Auto) 0.0 Basophils (%) (Auto) 0.5 Neutrophils # (Auto) 11.6 Lymphocytes # (Auto) 0.5 Monocytes # (Auto) 1.3 Eosinophils # (Auto) 0.0 Basophils # (Auto) 0.1 CBC Comment DIFF FINAL Differential Comment Blood Urea Nitrogen 20 Creatinine 0.75 Random Glucose 134 Total Protein 6.4 Albumin 3.7 Calcium Level 8.7 Alkaline Phosphatase 80 Aspartate Amino Transf (AST/SGOT) 573 Alanine Aminotransferase (ALT/SGPT) 1112 Total Bilirubin 2.0 Sodium Level 123 Potassium Level 3.8 Chloride Level 91 Carbon Dioxide Level 21.5 Anion Gap 11 Estimat Glomerular Filtration Rate 74 Lipase 289 Acetaminophen Level 23.4 Urine Color Juliann Urine Turbidity HAZY Urine pH 5.0 Urine Specific Lilly 1.034 Urine Protein NEG Urine Glucose (UA) NEG Urine Ketones TRACE Urine Occult Blood MOD Urine Nitrite NEG Urine Bilirubin NEG Urine Urobilinogen 4.0 OR GREATER Urine Leukocyte Esterase MOD Urine RBC 2 Urine WBC 18 Urine Squamous Epithelial Cells 2 Urine Bacteria MANY Urine Mucus FEW Microscopic Urinalysis Comment CULTURE INDICATED Date/Time Source Procedure Growth Status 02/15/18 14:30 Urine Random Urine Urine Culture Pending Received Result Diagram: 02/15/18 1230 02/15/18 1230 Imaging Last 48 hours Impressions Abdomen/Pelvis CT 02/15/18 1223 Signed Impressions: CONCLUSION: 1. Moderately distended gallbladder with questionable trace pericholecystic fl uid. Cannot exclude acute cholecystitis in the appropriate clinical setting. Co nsider further evaluation with ultrasound exam. 2. Mild airspace consolidation in the inferior lingula and right middle lobe w hich may reflect aspiration, if so likely chronic. 3. Ancillary findings include sigmoid diverticulosis, small hiatal hernia, deg enerative spondylosis of the lumbar spine and probable leiomyomatous uterus. Assessment and Plan Assessment and Plan 82 year old female with abdominal pain (resolved); headache; hyponatremia; UTI -Recommend correcting electrolytes -US GB -Check Tylenol level -Repeat liver enzymes tomorrow -Low suspicion at this point of cholecystitis but will follow up US and labs -If she does indeed need her gallbladder removed would recommend resolution of all other problems first before surgery -Thank you for this consult; We will continue to follow PT SEEN AND EVALUATED WITH CUPROUS CHLORIDE OPERATOR WHO DOCUMENTED OUR VISIT. I PERSONALLY EXAMINED THE PATIENT. ABD PAIN HAS RESOLVED. ELEVATED LFTS LIKELY SECONDARY TO TYLENOL USAGE. NO INDICATION FOR CHOLECYSTECTOMY AT THIS TIME NENA CHRIS MD FACS Discussed Condition With Dr. Alejandro FRANCO Mr. and Dyana EsquivelP/[employer]ocks Tender CUPROUS CHLORIDE OPERATOR Feb 15, 2018 17:39 Nena Chris MD Feb 21, 2018 11:45
[2018-02-15] MEDS ORDERED: RESP: ALBUTEROL 2.5 MG/IPRATROPIUM 0.5 MG NEB (PRN) NEB (18:00)
[2018-02-15] MEDS ORDERED: ACETYLCYSTEINE INJ 10,500 MG in DEXTROSE 5% IN WATER INJ 200 ML IV ONE ×2 (18:00)
--- NOTE | 2018-02-15 18:04 | HHI.HP ---
HPI Service [facility] Primary Care Physician Anam Klein, Admission Diagnosis hyponatremia, UTI, cholecystitis Diagnoses: Travel History International Travel<30 Days: No Contact w/Intl Traveler <30 Da: No Traveled to Known Affected Are: No History of Present Illness 82-year-old female history of carotid stenosis, hypertension, hyperlipidemia, chronic migraines who presents with 3 day history of constant sharp, nonradiating left upper quadrant abdominal pain, as well as a 1 day history of bilious vomiting. She denies any fevers, chills, chest pain, shortness of breath. He says that she has chronic headaches and that current headache is no different than previous headaches, however she has been taking 1000 mg of Tylenol every 3 hours. She does report poor appetite over the past week. Patient does have a history of dementia, however reports that she has been more confused over the past week. Review of Systems Except as stated in HPI: all other systems reviewed are Neg Past Family Social History Past Medical History Hypertension Hyperlipidemia Atrial fibrillation Depression Chronic migraines carotid stenosis Asthma Dementia Past Surgical History Diverticular perforation status post colostomy and reversal Tonsillectomy Reported Medications Amlodipine 10 mg p.o. daily Risperdal 0.5 mg p.o. twice daily Aspirin 325 mg daily Donepezil 10 mg p.o. daily Lisinopril/hydrochlorothiazide 20/12.5 daily Topiramate 50 mg p.o. daily Potassium 20 MDQ's p.o. twice daily Plavix 75 mg p.o. daily Atenolol 25 mg p.o. daily Sertraline 50 mg p.o. daily Lovastatin 20 mg p.o. daily Diazepam 5 mg q. at bedtime Allergies: Coded Allergies: Sulfa (Sulfonamide Antibiotics) (Verified Allergy, Severe, Swelling, ) HER MOUTH AND LIPS SWELL Family History Family history reviewed and found to be currently noncontributory. Social History Non-smoker. Nondrinker. Denies illicit drugs. Lives with her . Physical Exam Vital Signs Vital Signs Date Time Temp Pulse Resp B/P (MAP) Pulse Ox O2 Delivery O2 Flow Rate FiO2 02/15/18 14:32 67 18 183/81 (115) 99 Room Air 02/15/18 12:27 97 Room Air 02/15/18 12:00 97.2 73 20 130/61 (84) 99 Physical Exam GENERAL: This is a well-nourished, well-developed patient, in no apparent distress. disoriented SKIN: No rashes, ecchymoses or lesions. Cool and dry. HEAD: Atraumatic. Normocephalic. No temporal or scalp tenderness. EYES: Pupils equal round and reactive. Extraocular motions intact. No scleral icterus. No injection or drainage. ENT: Nose without bleeding, purulent drainage or septal hematoma. Throat without erythema, tonsillar hypertrophy or exudate. Uvula midline. Airway patent. NECK: Trachea midline. No JVD or lymphadenopathy. Supple, nontender, no meningeal signs. CARDIOVASCULAR: Regular rate and rhythm without murmurs, gallops, or rubs. RESPIRATORY: Clear to auscultation. Breath sounds equal bilaterally. No wheezes , rales, or rhonchi. GASTROINTESTINAL: Abdomen soft, non-tender, nondistended. No hepato-splenomegaly , or palpable masses. No guarding. MUSCULOSKELETAL: Extremities without clubbing, cyanosis, or edema. No joint tenderness, effusion, or edema noted. No calf tenderness. Negative Homans sign bilaterally. NEUROLOGICAL: Awake and alert. Cranial nerves II through XII intact. Motor and sensory grossly within normal limits. Five out of 5 muscle strength in all muscle groups. tremor BL which says is chronic. Normal speech. Laboratory Laboratory Tests Test 02/15/18 12:30 02/15/18 14:30 02/15/18 16:36 White Blood Count 13.4 Red Blood Count 4.49 Hemoglobin 13.6 Hematocrit 39.5 Mean Corpuscular Volume 88.0 Mean Corpuscular Hemoglobin 30.3 Mean Corpuscular Hemoglobin Concent 34.5 Red Cell Distribution Width 13.4 Platelet Count 275 Mean Platelet Volume 7.0 Neutrophils (%) (Auto) 86.5 Lymphocytes (%) (Auto) 3.4 Monocytes (%) (Auto) 9.6 Eosinophils (%) (Auto) 0.0 Basophils (%) (Auto) 0.5 Neutrophils # (Auto) 11.6 Lymphocytes # (Auto) 0.5 Monocytes # (Auto) 1.3 Eosinophils # (Auto) 0.0 Basophils # (Auto) 0.1 CBC Comment DIFF FINAL Differential Comment Blood Urea Nitrogen 20 Creatinine 0.75 Random Glucose 134 Total Protein 6.4 Albumin 3.7 Calcium Level 8.7 Alkaline Phosphatase 80 Aspartate Amino Transf (AST/SGOT) 573 Alanine Aminotransferase (ALT/SGPT) 1112 Total Bilirubin 2.0 Sodium Level 123 Potassium Level 3.8 Chloride Level 91 Carbon Dioxide Level 21.5 Anion Gap 11 Estimat Glomerular Filtration Rate 74 Lipase 289 Acetaminophen Level 23.4 Urine Color Juliann Urine Turbidity HAZY Urine pH 5.0 Urine Specific [place] 1.034 Urine Protein NEG Urine Glucose (UA) NEG Urine Ketones TRACE Urine Occult Blood MOD Urine Nitrite NEG Urine Bilirubin NEG Urine Urobilinogen 4.0 OR GREATER Urine Leukocyte Esterase MOD Urine RBC 2 Urine WBC 18 Urine Squamous Epithelial Cells 2 Urine Bacteria MANY Urine Mucus FEW Microscopic Urinalysis Comment CULTURE INDICATED Date/Time Source Procedure Growth Status 02/15/18 14:30 Urine Random Urine Urine Culture Pending Received Result Diagram: 02/15/18 1230 02/15/18 1230 Caprini VTE Risk Assessment Caprini VTE Risk Assessment: Mod/High Risk (score >= 2) Caprini Risk Assessment Model Point Value = 1 Point Value = 2 Point Value = 3 Point Value = 5 Age 41-60 Minor surgery BMI > 25 kg/m2 Swollen legs Varicose veins or History of unexplained or recurrent spontaneous Oral contraceptives or hormone replacement Sepsis (< 1 month) Serious lung disease, including pneumonia (< 1 month) Abnormal pulmonary function Acute myocardial infarction Congestive heart failure (< 1 month) History of inflammatory bowel disease Medical patient at bed rest Age 61-74 Arthroscopic surgery Major open surgery (> 45 min) Laparoscopic surgery (> 45 min) Malignancy Confined to bed (> 72 hours) Immobilizing plaster cast Central venous access Age >= 75 History of VTE Family history of VTE Factor V Leiden Prothrombin [id number] Lupus anticoagulant Anticardiolipin antibodies Elevated serum homocysteine Heparin-induced thrombocytopenia Other congenital or acquired thrombophilia Stroke (< 1 month) Elective arthroplasty Hip, pelvis, or leg fracture Acute spinal cord injury (< 1 month) Prophylaxis Regimen Total Risk Factor Score Risk Level Prophylaxis Regimen 0-1 Low Early ambulation 2 Moderate Order ONE of the following: *Sequential Compression Device (SCD) *Heparin 5000 units SQ BID 3-4 Higher Order ONE of the following medications: *Heparin 5000 units SQ TID *Enoxaparin/Lovenox 40 mg SQ daily (WT < 150 kg, CrCl > 30 mL/min) *Enoxaparin/Lovenox 30 mg SQ daily (WT < 150 kg, CrCl > 10-29 mL/min) *Enoxaparin/Lovenox 30 mg SQ BID (WT < 150 kg, CrCl > 30 mL/min) AND/OR *Sequential Compression Device (SCD) 5 or more Highest Order ONE of the following medications: *Heparin 5000 units SQ TID (Preferred with Epidurals) *Enoxaparin/Lovenox 40 mg SQ daily (WT < 150 kg, CrCl > 30 mL/min) *Enoxaparin/Lovenox 30 mg SQ daily (WT < 150 kg, CrCl > 10-29 mL/min) *Enoxaparin/Lovenox 30 mg SQ BID (WT < 150 kg, CrCl > 30 mL/min) AND *Sequential Compression Device (SCD) Assessment and Plan Assessment and Plan //Hypovolemic hyponatremia. -Possibly symptomatic with confusion. Sodium 123 on admission. Baseline in the 130s. = Check magnesium. Likely secondary to dehydration. IV fluids. Monitor. //Encephalopathy. -Patient does have chronic dementia on donepezil. = Likely secondary to poor appetite, possible infection = Possibly secondary to hyponatremia we will check ammonia, CT head. //Suspected Tylenol overdose //Transaminitis. Acute = Patient is on Tylenol 1000 mg every 3 hours as needed for headache. As patient has had a headache over the past week, she has been taking Tylenol. = AST 573, ALT 1112 on admission. Bilirubin 2.0. Tylenol level 23. Acetylcysteine as per GI. = Ultrasound and hepatitis profile pending. GI following. Appreciate assistance. //Possible cholecystitis. Acute. //Leukocytosis //possible Sepsis = CT abdomen as above. = Leukocytosis. = General surgery following = Continue on Zosyn. //Chronic headaches. -Acute on chronic exacerbation. The medication as necessary. //Atrial fibrillation. Continue on atenolol. Patient is not on full anticoagulation, however is on aspirin and Plavix due to carotid stenosis. //Carotid stenosis. On Plavix and aspirin at home //Hypertension. Chronic. Continue home medications as necessary. //Depression. Chronic. Continue home medications Discussed Condition With patient, nurse, General surgery, ED physician, at bedside. Physician Certification 2 Midnight Certification Type: Admission for Inpatient Services Order for Inpatient Services The services are ordered in accordance with Medicare regulations or non- Medicare payer requirements, as applicable. In the case of services not specified as inpatient-only, they are appropriately provided as inpatient services in accordance with the 2-midnight benchmark. Estimated LOS (days): 2 days is the estimated time the patient will need to remain in the hospital, assuming treatment plan goals are met and no additional complications. Post-Hospital Plan: Not yet determined Rio Cisse MD Feb 15, 2018 18:04
[2018-02-15] MEDS ORDERED: ZOLO50TA PO (18:12)
[2018-02-15] MEDS ORDERED: TOPA50TA7 PO (18:12)
[2018-02-15] MEDS ORDERED: LISI20TA3 PO (18:12)
[2018-02-15] MEDS ORDERED: ASPI-183 PO (18:12)
[2018-02-15] MEDS ORDERED: RISP0.5T25 PO (18:12)
[2018-02-15] MEDS ORDERED: DONE10TA7 PO (18:12)
[2018-02-15] MEDS ORDERED: AMLO10TA2 PO (18:12)
[2018-02-15] MEDS ORDERED: LOVA20TA PO (18:12)
[2018-02-15] MEDS: ENALAPRILAT 1.25 MG/ML VIAL IV PUSH PRN (18:22)
[2018-02-15] MEDS: ACETYLCYSTEINE INJ 3,500 MG in DEXTROSE 5% IN WATE 500 ML INJ 500 ML IV ONE ×4 (19:00→22:25)
--- NOTE | 2018-02-15 19:10 | RADRPT ---
EXAM DATE: 02/15/2018 6:21 PM EDT AGE/SEX: 82 years / Female INDICATIONS: Abdominal pain with nausea and vomiting. CLINICAL DATA: This is the patient's initial encounter. Patient reports that signs and/or symptoms h ave been present for 1 day and indicates a pain score of 4/10. MEDICAL/SURGICAL HISTORY: Hypertension. Asthma. Hysterectomy. COMPARISON: No prior exams available for comparison. MEASUREMENTS (cm x cm x cm): Liver:__ 17.6 cm length Common Bile Duct:__ 8mm FINDINGS: Liver: Normal echotexture without focal lesion or ductal dilatation. Portal Vein: Hepatopedal flow seen in portal vein. Common Duct: No intraluminal mass or stone visualized. Gallbladder: No gallstones. Pancreas: The visualized portions are within normal limits Right Kidney: Increased echotexture. No mass or hydronephrosis. Other: None. CONCLUSION: 1. No acute findings. Echogenic right kidney which may indicate medical renal disease. No gallstones or biliary ductal dilatation. Electronically signed by: Ricky Masters MD 02/15/2018 7:09 PM EDT
--- NOTE | 2018-02-15 19:48 | RADRPT ---
EXAM DATE: 02/15/2018 7:39 PM EDT AGE/SEX: 82 years / Female INDICATIONS: Cephalgia. CLINICAL DATA: This is the patient's initial encounter. Patient reports that signs and symptoms have been present for 1 day and indicates a pain score of 3/10. MEDICAL/SURGICAL HISTORY: Hypertension. Asthma. Afib. . Partial hysterectomy. RADIATION DOSE: 36.93 CTDI (mGy) COMPARISON: [facility] [place], CT BRAIN W/O CONTRAST, 05/26/2017. . TECHNIQUE: CT of the head without contrast. Using automated exposure control and adjustment of the mA and/or kV according to patient size, radiation dose was kept as low as reasonably achievable to ob tain optimal diagnostic quality images. DICOM format image data is available electronically for revi ew and comparison. FINDINGS: Cerebrum: The ventricles are normal for age. No evidence of midline shift, mass lesion, hemorrhage or acute infarction. No extraaxial fluid collections are seen. Posterior Fossa: The cerebellum and brainstem are intact. The 4th ventricle is midline. The cerebe llopontine angle is unremarkable. Extracranial: The visualized portion of the orbits is intact. Skull: The calvaria is intact. No evidence of skull fracture. CONCLUSION: 1. No acute intracranial abnormalities. Electronically signed by: Ricky Masters MD 02/15/2018 7:47 PM EDT
[2018-02-15] MEDS: METOCLOPRAMIDE HCL 10 MG/2 ML VIAL IV PUSH PRN (19:53)
[2018-02-15] MEDS: SODIUM CHLORIDE 0.9% FLUSH 10 ML FLUSH IV FLUSH SCH (20:52)
[2018-02-15 21:00] LABS: INTERNATIONAL NORMALIZED RATIO 1.6 RATIO; PROTHROMBIN TIME - PATIENT 15.8 SEC (9.8-11.6)
[2018-02-15] MEDS: PIPERACIL-TAZO 3.375 GM PREMIX 50 ML IV SCH (22:14)
[2018-02-15] MEDS ORDERED: ACETYLCYSTEINE INJ 7,000 MG in DEXTROSE 5% IN WATE 1000ML INJ 1,000 ML IV ONE ×2 (23:00)
[2018-02-16] VITALS (7 sets, daily range): BP systolic 151–198; BP diastolic 72–90; PULSE 80–122; RESP 16–20; TEMP 97.4–97.8; O2SAT 98–100
[2018-02-16] MEDS: PIPERACIL-TAZO 3.375 GM PREMIX 50 ML IV SCH ×4 (03:11→22:30)
[2018-02-16] MEDS: METOCLOPRAMIDE HCL 10 MG/2 ML VIAL IV PUSH PRN (03:14)
[2018-02-16 06:35] LABS: AUTOMATED NEUTROPHIL # 11.3 TH/MM3 (1.8-7.7); BASOPHIL % 0.2 % (0.0-2.0); HEMATOCRIT 31.5 % (35.0-46.0); HEMOGLOBIN 11.1 GM/DL (11.6-15.3); LYMPH % 1.9 % (9.0-44.0); LYMPHOCYTE # 0.2 TH/MM3 (1.0-4.8); MEAN CELL VOLUME 87.5 FL (80.0-100.0); MEAN CORPUSCULAR HEMOGLOBIN 30.8 PG (27.0-34.0); MEAN CORPUSCULAR HGB CONC 35.2 % (32.0-36.0); MEAN PLATELET VOLUME 7.3 FL (7.0-11.0); MONO % 9.3 % (0.0-8.0); MONOCYTE # 1.2 TH/MM3 (0-0.9); NEUT % 88.6 % (16.0-70.0); PLATELET COUNT 225 TH/MM3 (150-450); RED CELL DISTRIBUTION WIDTH 13.1 % (11.6-17.2); WHITE BLOOD COUNT 12.8 TH/MM3 (4.0-11.0)
[2018-02-16 07:14] LABS: ALKALINE PHOSPHATASE 63 U/L (45-117); ALT (GPT) 5405 U/L (10-53); AST (GOT) 4870 U/L (15-37); BLOOD UREA NITROGEN 33 MG/DL (7-18); CALCIUM 8.1 MG/DL (8.5-10.1); CHLORIDE 99 MEQ/L (98-107); CREATININE 0.62 MG/DL (0.50-1.00); GLOMERULAR FILTRATION RATE 92 ML/MIN (>89); GLUCOSE,RANDOM 154 MG/DL (74-106); SODIUM (NA) 133 MEQ/L (136-145); TOTAL BILIRUBIN ADULT 1.5 MG/DL (0.2-1.0); TOTAL PROTEIN 5.7 GM/DL (6.4-8.2)
--- NOTE | 2018-02-16 08:57 | HHI.PR ---
Subjective Remarks With high BP, prn meds Confused Nause no vomiting Discussed with GI consider transfer to [place] for liver transplant Objective Vitals Vital Signs Date Time Temp Pulse Resp B/P (MAP) Pulse Ox O2 Delivery O2 Flow Rate FiO2 02/16/18 04:00 97.8 88 16 151/75 (100) 99 02/16/18 00:00 Room Air 02/16/18 00:00 97.4 80 17 168/81 (110) 98 02/15/18 20:22 02/15/18 20:01 97.4 84 19 162/77 (105) 99 02/15/18 20:00 Nasal Cannula 2.00 02/15/18 19:30 97 Nasal Cannula 2.00 02/15/18 18:23 71 18 159/70 (99) 97 Room Air 02/15/18 18:00 72 18 198/89 (125) 97 Room Air 02/15/18 14:32 67 18 183/81 (115) 99 Room Air 02/15/18 12:27 97 Room Air 02/15/18 12:00 97.2 73 20 130/61 (84) 99 I/O 02/15/18 02/15/18 02/15/18 02/16/18 02/16/18 02/16/18 07:00 15:00 23:00 07:00 15:00 23:00 Intake Total 50 ml 1457 ml Balance 50 ml 1457 ml Intake Oral 0 ml IV Total 50 ml 1457 ml # Voids 2 # Bowel Movements 1 Result Diagram: 02/16/18 0600 02/16/18 0600 Imaging Last Impressions Abdomen/Pelvis CT 02/15/18 1223 Signed Impressions: CONCLUSION: 1. Moderately distended gallbladder with questionable trace pericholecystic fl uid. Cannot exclude acute cholecystitis in the appropriate clinical setting. Co nsider further evaluation with ultrasound exam. 2. Mild airspace consolidation in the inferior lingula and right middle lobe w hich may reflect aspiration, if so likely chronic. 3. Ancillary findings include sigmoid diverticulosis, small hiatal hernia, deg enerative spondylosis of the lumbar spine and probable leiomyomatous uterus. Head CT 02/15/18 0000 Signed Impressions: CONCLUSION: 1. No acute intracranial abnormalities. Gall Bladder Ultrasound 02/15/18 0000 Signed Impressions: CONCLUSION: 1. No acute findings. Echogenic right kidney which may indicate medical renal disease. No gallstones or biliary ductal dilatation. Objective Remarks GENERAL: This is a well-nourished, well-developed patient, in no apparent distress. disoriented CARDIOVASCULAR: Regular rate and rhythm without murmurs, gallops, or rubs. RESPIRATORY: Clear to auscultation. Breath sounds equal bilaterally. No wheezes , rales, or rhonchi. GASTROINTESTINAL: Abdomen soft, non-tender, nondistended. No hepato-splenomegaly , or palpable masses. No guarding. MUSCULOSKELETAL: Extremities without clubbing, cyanosis, or edema. No joint tenderness, effusion, or edema noted. No calf tenderness. Negative Homans sign bilaterally. NEUROLOGICAL: Awake and alert. Cranial nerves II through XII intact. Motor and sensory grossly within normal limits. Five out of 5 muscle strength in all muscle groups. tremor BL which says is chronic. Normal speech. A/P Assessment and Plan Hypovolemic hyponatremia. Possibly symptomatic with confusion. Sodium 123 on admission. Baseline in the 130s. Na improving. Check magnesium. Likely secondary to dehydration. IV fluids. Monitor. Encephalopathy. Patient does have chronic dementia on donepezil. Likely secondary to poor appetite, possible infection Possibly secondary to hyponatremia we will check ammonia, CT head no acute findings . Suspected Tylenol overdose Transaminitis. Acute Patient is on Tylenol 1000 mg every 3 hours as needed for headache. As patient has had a headache over the past week, she has been taking Tylenol. AST 573, ALT 1112 on admission. Bilirubin 2.0. Tylenol level 23. Acetylcysteine as per GI. Ultrasound and hepatitis profile pending. GI following. Appreciate assistance. Possible transfer to [facility] for fulminant liver failure for possible work up for liver transplant. CM consulted Possible cholecystitis. Acute. Leukocytosis possible Sepsis CT abdomen as above. Leukocytosis. General surgery following Continue on Zosyn. Chronic headaches. Acute on chronic exacerbation. The medication as necessary. Atrial fibrillation. Continue on atenolol. Patient is not on full anticoagulation, however is on aspirin and Plavix due to carotid stenosis. Carotid stenosis. On Plavix and aspirin at home Hypertension. Chronic. Continue home medications as necessary. Depression. Chronic. Continue home medications Discussed Condition With nurse, Virginia Duncan MD Feb 16, 2018 08:57
--- NOTE | 2018-02-16 09:49 | HHI.PR ---
cc: Kemal Allen MD Subjective Subjective Notes Resting in bed trying to find remote Objective Vitals/I&O Vital Signs Date Time Temp Pulse Resp B/P (MAP) Pulse Ox O2 Delivery O2 Flow Rate FiO2 02/16/18 04:00 97.8 88 16 151/75 (100) 99 02/16/18 00:00 Room Air 02/15/18 20:00 2.00 Labs Laboratory Tests Test 02/15/18 12:30 02/15/18 14:30 02/15/18 16:36 02/15/18 20:23 White Blood Count 13.4 Red Blood Count 4.49 Hemoglobin 13.6 Hematocrit 39.5 Mean Corpuscular Volume 88.0 Mean Corpuscular Hemoglobin 30.3 Mean Corpuscular Hemoglobin Concent 34.5 Red Cell Distribution Width 13.4 Platelet Count 275 Mean Platelet Volume 7.0 Neutrophils (%) (Auto) 86.5 Lymphocytes (%) (Auto) 3.4 Monocytes (%) (Auto) 9.6 Eosinophils (%) (Auto) 0.0 Basophils (%) (Auto) 0.5 Neutrophils # (Auto) 11.6 Lymphocytes # (Auto) 0.5 Monocytes # (Auto) 1.3 Eosinophils # (Auto) 0.0 Basophils # (Auto) 0.1 CBC Comment DIFF FINAL Differential Comment Blood Urea Nitrogen 20 Creatinine 0.75 Random Glucose 134 Total Protein 6.4 Albumin 3.7 Calcium Level 8.7 Alkaline Phosphatase 80 Aspartate Amino Transf (AST/SGOT) 573 Alanine Aminotransferase (ALT/SGPT) 1112 Total Bilirubin 2.0 Sodium Level 123 Potassium Level 3.8 Chloride Level 91 Carbon Dioxide Level 21.5 Anion Gap 11 Estimat Glomerular Filtration Rate 74 Magnesium Level 1.8 Lipase 289 Acetaminophen Level 23.4 3.9 Urine Color Juliann Urine Turbidity HAZY Urine pH 5.0 Urine Specific [place] 1.034 Urine Protein NEG Urine Glucose (UA) NEG Urine Ketones TRACE Urine Occult Blood MOD Urine Nitrite NEG Urine Bilirubin NEG Urine Urobilinogen 4.0 OR GREATER Urine Leukocyte Esterase MOD Urine RBC 2 Urine WBC 18 Urine Squamous Epithelial Cells 2 Urine Bacteria MANY Urine Mucus FEW Microscopic Urinalysis Comment CULTURE INDICATED Hepatitis A IgM Antibody NONREACTIVE Hepatitis B Surface Antigen NONREACTIVE Hepatitis B Core IgM Antibody NONREACTIVE Hepatitis C IgG Antibody NONREACTIVE Prothrombin Time 15.8 Prothromb Time International Ratio 1.6 Ammonia 52 Test 02/16/18 06:00 White Blood Count 12.8 Red Blood Count 3.60 Hemoglobin 11.1 Hematocrit 31.5 Mean Corpuscular Volume 87.5 Mean Corpuscular Hemoglobin 30.8 Mean Corpuscular Hemoglobin Concent 35.2 Red Cell Distribution Width 13.1 Platelet Count 225 Mean Platelet Volume 7.3 Neutrophils (%) (Auto) 88.6 Lymphocytes (%) (Auto) 1.9 Monocytes (%) (Auto) 9.3 Eosinophils (%) (Auto) 0.0 Basophils (%) (Auto) 0.2 Neutrophils # (Auto) 11.3 Lymphocytes # (Auto) 0.2 Monocytes # (Auto) 1.2 Eosinophils # (Auto) 0.0 Basophils # (Auto) 0.0 CBC Comment DIFF FINAL Differential Comment Blood Urea Nitrogen 33 Creatinine 0.62 Random Glucose 154 Total Protein 5.7 Albumin 3.0 Calcium Level 8.1 Alkaline Phosphatase 63 Aspartate Amino Transf (AST/SGOT) 4870 Alanine Aminotransferase (ALT/SGPT) 5405 Total Bilirubin 1.5 Sodium Level 133 Potassium Level 3.1 Chloride Level 99 Carbon Dioxide Level 21.0 Anion Gap 13 Estimat Glomerular Filtration Rate 92 Date/Time Source Procedure Growth Status 02/15/18 14:30 Urine Random Urine Urine Culture Pending Received Radiology Last 48 hours Impressions Abdomen/Pelvis CT 02/15/18 1223 Signed Impressions: CONCLUSION: 1. Moderately distended gallbladder with questionable trace pericholecystic fl uid. Cannot exclude acute cholecystitis in the appropriate clinical setting. Co nsider further evaluation with ultrasound exam. 2. Mild airspace consolidation in the inferior lingula and right middle lobe w hich may reflect aspiration, if so likely chronic. 3. Ancillary findings include sigmoid diverticulosis, small hiatal hernia, deg enerative spondylosis of the lumbar spine and probable leiomyomatous uterus. Cardiovascular: Regular Lungs: Clear Abdomen: Non-distended, Non-tender Extremities: No edema A/P Assessment and Plan 82 year old female with abdominal pain (resolved); headache; hyponatremia; UTI -US GB--- shows no acute findings -Liver enzymes more consistent with primary liver dysfunction -Unlikely to be gallbladder related -General Surgery will sign off -Please call with any questions Dyana Varma/First Aleena FRANCO Feb 16, 2018 09:49
[2018-02-16] MEDS: SODIUM CHLORIDE 0.9% FLUSH 10 ML FLUSH IV FLUSH SCH ×2 (10:12→21:00)
--- NOTE | 2018-02-16 12:42 | HHI.GIFU ---
Subjective Remarks Pt is confused and lethargic today Per at bedside she was asking questions that did not make sense earlier She states she doesn't feel too great today Denies abdominal pain Some nausea but no vomiting Per pt had large BM (Lisa Dia) Objective Vitals I&O Vital Signs Date Time Temp Pulse Resp B/P (MAP) Pulse Ox O2 Delivery O2 Flow Rate FiO2 02/16/18 08:01 97.4 96 20 169/90 (116) 100 02/16/18 04:00 97.8 88 16 151/75 (100) 99 02/16/18 00:00 Room Air 02/16/18 00:00 97.4 80 17 168/81 (110) 98 02/15/18 20:22 02/15/18 20:01 97.4 84 19 162/77 (105) 99 02/15/18 20:00 Nasal Cannula 2.00 02/15/18 19:30 97 Nasal Cannula 2.00 02/15/18 18:23 71 18 159/70 (99) 97 Room Air 02/15/18 18:00 72 18 198/89 (125) 97 Room Air 02/15/18 14:32 67 18 183/81 (115) 99 Room Air I/O 02/15/18 02/15/18 02/15/18 02/16/18 02/16/18 02/16/18 07:00 15:00 23:00 07:00 15:00 23:00 Intake Total 50 ml 1457 ml Balance 50 ml 1457 ml Intake Oral 0 ml IV Total 50 ml 1457 ml # Voids 2 # Bowel Movements 1 Laboratory Laboratory Tests Test 02/15/18 14:30 02/15/18 16:36 02/15/18 20:23 02/16/18 06:00 Urine Color Juliann Urine Turbidity HAZY Urine pH 5.0 Urine Specific [place] 1.034 Urine Protein NEG Urine Glucose (UA) NEG Urine Ketones TRACE Urine Occult Blood MOD Urine Nitrite NEG Urine Bilirubin NEG Urine Urobilinogen 4.0 OR GREATER Urine Leukocyte Esterase MOD Urine RBC 2 Urine WBC 18 Urine Squamous Epithelial Cells 2 Urine Bacteria MANY Urine Mucus FEW Microscopic Urinalysis Comment CULTURE INDICATED Hepatitis A IgM Antibody NONREACTIVE Hepatitis B Surface Antigen NONREACTIVE Hepatitis B Core IgM Antibody NONREACTIVE Hepatitis C IgG Antibody NONREACTIVE Prothrombin Time 15.8 Prothromb Time International Ratio 1.6 Ammonia 52 Acetaminophen Level 3.9 White Blood Count 12.8 Red Blood Count 3.60 Hemoglobin 11.1 Hematocrit 31.5 Mean Corpuscular Volume 87.5 Mean Corpuscular Hemoglobin 30.8 Mean Corpuscular Hemoglobin Concent 35.2 Red Cell Distribution Width 13.1 Platelet Count 225 Mean Platelet Volume 7.3 Neutrophils (%) (Auto) 88.6 Lymphocytes (%) (Auto) 1.9 Monocytes (%) (Auto) 9.3 Eosinophils (%) (Auto) 0.0 Basophils (%) (Auto) 0.2 Neutrophils # (Auto) 11.3 Lymphocytes # (Auto) 0.2 Monocytes # (Auto) 1.2 Eosinophils # (Auto) 0.0 Basophils # (Auto) 0.0 CBC Comment DIFF FINAL Differential Comment Blood Urea Nitrogen 33 Creatinine 0.62 Random Glucose 154 Total Protein 5.7 Albumin 3.0 Calcium Level 8.1 Alkaline Phosphatase 63 Aspartate Amino Transf (AST/SGOT) 4870 Alanine Aminotransferase (ALT/SGPT) 5405 Total Bilirubin 1.5 Sodium Level 133 Potassium Level 3.1 Chloride Level 99 Carbon Dioxide Level 21.0 Anion Gap 13 Estimat Glomerular Filtration Rate 92 Date/Time Source Procedure Growth Status 02/15/18 14:30 Urine Random Urine Urine Culture Pending Received Imaging Last Impressions Abdomen/Pelvis CT 02/15/18 1223 Signed Impressions: CONCLUSION: 1. Moderately distended gallbladder with questionable trace pericholecystic fl uid. Cannot exclude acute cholecystitis in the appropriate clinical setting. Co nsider further evaluation with ultrasound exam. 2. Mild airspace consolidation in the inferior lingula and right middle lobe w hich may reflect aspiration, if so likely chronic. 3. Ancillary findings include sigmoid diverticulosis, small hiatal hernia, deg enerative spondylosis of the lumbar spine and probable leiomyomatous uterus. Head CT 02/15/18 0000 Signed Impressions: CONCLUSION: 1. No acute intracranial abnormalities. Gall Bladder Ultrasound 02/15/18 0000 Signed Impressions: CONCLUSION: 1. No acute findings. Echogenic right kidney which may indicate medical renal disease. No gallstones or biliary ductal dilatation. Physical Exam HEENT: Normocephalic; atraumatic CHEST: Even/unlabored CARDIAC: RRR ABDOMEN: Soft, nondistended, nontender; bowel sounds active EXTREMITIES: No clubbing, cyanosis, or edema. SKIN: Normal; no rash; no jaundice. 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 Denies ETOH. Of note, has been taking 1000mg of Tylenol q 3hs for 2 years for headaches. Denies any other OTC medications, herbs, supplements. CT abdomen and pelvis W IV contrast --> Moderately distended gallbladder with questionable trace pericholecystic fluid. Ancillary findings include sigmoid diverticulosis, small hiatal hernia. US gallbladder --> No acute findings. Echogenic right kidney which may indicate medical renal disease. No gallstones or biliary ductal dilatation. Hepatitis panel negative (02/16) Pt lethargic today and confused, per pts at bedside she has been asking questions this morning that don't make any sense. Her LFTs has increased significantly today. Ammonia level 52. Pt on Acetylcysteine AST-4870 ALT-5405 T bili-1.5 Alk phos-[address] Allen this morning, based on liver enzymes, he does not think this gallbladder related. Plan: Liver AYERS HFE added, elevated Ferritin Acetylcysteine Lactulose Avoid hepatotoxic medications- Pravastatin DCd Dose other medications appropriately per attending Case management referral for possible transfer to [facility] for fulminant liver failure for possible work up for liver transplant - discussed with special education case manager Monitor labs Further recommendations based on clinical course Pt has been seen and examined by myself and Dr. Rhodes and this note is written on his behalf (Lisa Dia) Physician Comments Seen and examined with [facility]ADOR, worsening clinically today. Now with encephalopathy and worsening LFTs/INR. 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 Emergent transfer to [facility] requested. Discussed case with [facility] transplant market development executive Dr Carter over the phone. Patient not a candidate for transfer/ transplant due to advanced age. Will add vit K 10mg sq daily x 3. Complete mucomyst per protocol. Would recommend transfer to ICU, message left for Dr Cisse to arrange transfer. Having diarrhea due to Lactulose. Discussed prognosis with . (Graciela Rhodes MD) Lisa Dia Feb 16, 2018 12:42 Graciela Rhodes MD Feb 16, 2018 17:44
[2018-02-16] MEDS: ENALAPRILAT 1.25 MG/ML VIAL IV PUSH PRN (13:43)
[2018-02-16 14:43] LABS: % SATURATION IRON PROFILE 55.6 % (20-50); IRON (FE) 175 MCG/DL (50-170); TOTAL IRON BINDING CAPACITY 315 MCG/DL (250-450)
[2018-02-16 14:58] LABS: FERRITIN 3832 NG/ML (8-252)
--- NOTE | 2018-02-16 16:59 | EKG ---
Date Performed: 02/15/2018 Time Performed: 12:40:44 PTAGE: 82 years EKG: Sinus rhythm WITH FIRST DEGREE AV BLOCK ABNORMAL ECG PREVIOUS TRACING : 05/25/2017 23.11 Since the previous tracing, no significant change noted DOCTOR: Neo Romo Interpretating Date/Time 02/16/2018 16:56:55
[2018-02-16] MEDS: HYDROCHLOROTHIAZIDE 25 MG TAB PO SCH (17:05)
[2018-02-16] MEDS: SODIUM CHLOR 0.9% 1000 ML INJ 1,000 ML IV SCH ×2 (21:14→21:31)
[2018-02-16] MEDS: LACTULOSE SYRUP 20 GM/30 ML CUP PO SCH (21:16)
[2018-02-16] MEDS: risperiDONE 0.5 MG TAB PO SCH (21:16)
[2018-02-16] MEDS: DONEPEZIL HCL 5 MG TAB PO SCH (21:16)
[2018-02-16] MEDS: TOPIRAMATE 25 MG TAB PO SCH (21:16)
[2018-02-17] VITALS: BP 152/86; PULSE 116; RESP 16; TEMP 97.4; O2SAT 98
[2018-02-17 04:00] VITALS: BP_SYST 158; BP_DIAS 67; BP_DIAS 77; PULSE 111; RESP 18; TEMP 97.8; O2SAT 98
[2018-02-17] MEDS: PIPERACIL-TAZO 3.375 GM PREMIX 50 ML IV SCH ×2 (04:55→10:00)
[2018-02-17] MEDS: SODIUM CHLOR 0.9% 1000 ML INJ 1,000 ML IV SCH (05:00)
[2018-02-17] MEDS: hydrALAZINE HCL 10 MG TAB PO PRN ×2 (07:58→23:09)
[2018-02-17] MEDS: LISINOPRIL 20 MG TAB PO SCH (07:58)
[2018-02-17] MEDS: LACTULOSE SYRUP 20 GM/30 ML CUP PO SCH ×2 (07:58→21:00)
[2018-02-17] MEDS: SERTRALINE HCL 50 MG TAB PO SCH (07:58)
[2018-02-17] MEDS: HYDROCHLOROTHIAZIDE 25 MG TAB PO SCH (07:58)
[2018-02-17] MEDS: PHYTONADIONE 10 MG/ML VIAL SQ SCH (07:59)
[2018-02-17] MEDS: TOPIRAMATE 25 MG TAB PO SCH ×2 (07:59→21:49)
[2018-02-17 08:00] VITALS: BP 195/71; PULSE 106; RESP 20; TEMP 97.8; O2SAT 99
[2018-02-17] MEDS: SODIUM CHLORIDE 0.9% FLUSH 10 ML FLUSH IV FLUSH SCH ×2 (08:00→21:49)
[2018-02-17] MEDS ORDERED: PRAVASTATIN SOD 20 MG TAB PO SCH (09:00)
[2018-02-17] MEDS: risperiDONE 0.5 MG TAB PO SCH ×2 (09:00→21:00)
[2018-02-17] MEDS: ENALAPRILAT 1.25 MG/ML VIAL IV PUSH PRN (09:18)
[2018-02-17] MEDS ORDERED: POTASSIUM CHLORIDE 10 MEQ CONTROLLED RELEASE TAB PO ONE (10:30)
--- NOTE | 2018-02-17 10:51 | HHI.PR ---
Subjective Remarks Patient is in the bed appears in nad. He had been sent. Patient is pleasantly confused. Had black bowel movement today will check for fecal occult blood. No fever or chills. Says she does not have any nausea. Able to eat some in the morning did not vomit. No fever or chills. Objective Vitals Vital Signs Date Time Temp Pulse Resp B/P (MAP) Pulse Ox O2 Delivery O2 Flow Rate FiO2 02/17/18 04:00 97.8 111 18 158/77 (104) 98 02/17/18 04:00 Room Air 02/17/18 00:00 Room Air 02/17/18 00:00 97.4 116 16 152/86 (108) 98 02/16/18 22:40 156/78 (104) 02/16/18 20:00 97.4 116 18 182/72 (108) 98 02/16/18 20:00 Room Air 02/16/18 16:01 97.4 122 18 173/79 (110) 99 02/16/18 12:01 97.4 107 18 198/85 (122) 98 I/O 02/16/18 02/16/18 02/16/18 02/17/18 02/17/18 02/17/18 07:00 15:00 23:00 07:00 15:00 23:00 Intake Total 1457 ml 973 ml 1700 ml Output Total 1400 ml Balance 1457 ml -427 ml 1700 ml Intake Oral 0 ml 380 ml 550 ml IV Total 1457 ml 593 ml 1150 ml Output Urine Total 1400 ml # Voids 2 3 # Bowel Movements 1 0 3 Result Diagram: 02/16/18 0600 02/16/18 0600 Imaging Last Impressions Abdomen/Pelvis CT 02/15/18 1223 Signed Impressions: CONCLUSION: 1. Moderately distended gallbladder with questionable trace pericholecystic fl uid. Cannot exclude acute cholecystitis in the appropriate clinical setting. Co nsider further evaluation with ultrasound exam. 2. Mild airspace consolidation in the inferior lingula and right middle lobe w hich may reflect aspiration, if so likely chronic. 3. Ancillary findings include sigmoid diverticulosis, small hiatal hernia, deg enerative spondylosis of the lumbar spine and probable leiomyomatous uterus. Head CT 02/15/18 0000 Signed Impressions: CONCLUSION: 1. No acute intracranial abnormalities. Gall Bladder Ultrasound 02/15/18 0000 Signed Impressions: CONCLUSION: 1. No acute findings. Echogenic right kidney which may indicate medical renal disease. No gallstones or biliary ductal dilatation. Objective Remarks GENERAL: This is a pleasantly confused well-nourished, well-developed patient, in no apparent distress. CARDIOVASCULAR: Regular rate and rhythm without murmurs, gallops, or rubs. RESPIRATORY: Clear to auscultation. Breath sounds equal bilaterally. No wheezes , rales, or rhonchi. GASTROINTESTINAL: Abdomen soft, non-tender, nondistended. No hepato-splenomegaly , or palpable masses. No guarding. MUSCULOSKELETAL: Extremities without clubbing, cyanosis, or edema. No joint tenderness, effusion, or edema noted. No calf tenderness. Negative Homans sign bilaterally. NEUROLOGICAL: Awake and alert. Cranial nerves II through XII intact. Motor and sensory grossly within normal limits. Five out of 5 muscle strength in all muscle groups. Tremor BL which per report says is chronic. Normal speech. A/P Assessment and Plan Hypovolemic hyponatremia. Possibly symptomatic with confusion. Sodium 123 on admission. Baseline in the 130s. Na back to normal. Check magnesium. Likely secondary to dehydration. IV fluids. Monitor. Encephalopathy. Patient does have chronic dementia on donepezil. Likely secondary to poor appetite, possible infection Possibly secondary to hyponatremia we will check ammonia, CT head no acute findings . Suspected Tylenol overdose Transaminitis. Acute Patient is on Tylenol 1000 mg every 3 hours as needed for headache. As patient has had a headache over the past week, she has been taking Tylenol. AST 573, ALT 1112 on admission. Bilirubin 2.0. Tylenol level 23. Acetylcysteine as per GI. Ultrasound and hepatitis profile pending. GI following. Appreciate assistance. [facility] for possible work up for liver transplant. CM consulted Possible cholecystitis. Acute. Leukocytosis Possible Sepsis CT abdomen as above. Leukocytosis. General surgery following Continue on Zosyn. Hypokalemia: Replaced. Anemia: HGD drop , will check FOB Chronic headaches. Acute on chronic exacerbation. The medication as necessary. Atrial fibrillation. Continue on atenolol. Patient is not on full anticoagulation, however is on aspirin and Plavix due to carotid stenosis. Carotid stenosis. On Plavix and aspirin at home Hypertension. Chronic. Continue home medications as necessary. Depression. Chronic. Continue home medications Discussed Condition With nurse, family at bedside, Virginia Duncan MD Feb 17, 2018 10:51
[2018-02-17 12:09] LABS: AUTOMATED NEUTROPHIL # 6.1 TH/MM3 (1.8-7.7); BASOPHIL # 0.1 TH/MM3 (0-0.2); BASOPHIL % 0.7 % (0.0-2.0); EOSINOPHIL % 0.3 % (0.0-4.0); HEMATOCRIT 22.7 % (35.0-46.0); HEMOGLOBIN 7.7 GM/DL (11.6-15.3); LYMPH % 6.9 % (9.0-44.0); LYMPHOCYTE # 0.5 TH/MM3 (1.0-4.8); MEAN CORPUSCULAR HEMOGLOBIN 30.2 PG (27.0-34.0); MEAN CORPUSCULAR HGB CONC 33.9 % (32.0-36.0); MEAN PLATELET VOLUME 7.5 FL (7.0-11.0); MONO % 10.2 % (0.0-8.0); MONOCYTE # 0.8 TH/MM3 (0-0.9); NEUT % 81.9 % (16.0-70.0); PLATELET COUNT 190 TH/MM3 (150-450); RED BLOOD COUNT 2.54 MIL/MM3 (4.00-5.30); RED CELL DISTRIBUTION WIDTH 13.1 % (11.6-17.2); WHITE BLOOD COUNT 7.5 TH/MM3 (4.0-11.0)
[2018-02-17 13:00] VITALS: BP 147/67; PULSE 101; RESP 16; TEMP 97.7; O2SAT 99
[2018-02-17 13:15] LABS: ALBUMIN 2.8 GM/DL (3.4-5.0); ALKALINE PHOSPHATASE 58 U/L (45-117); ALT (GPT) 2971 U/L (10-53); AST (GOT) 484 U/L (15-37); BICARBONATE 24.8 MEQ/L (21.0-32.0); BLOOD UREA NITROGEN 23 MG/DL (7-18); CALCIUM 8.1 MG/DL (8.5-10.1); CHLORIDE 101 MEQ/L (98-107); CREATININE 0.53 MG/DL (0.50-1.00); GLOMERULAR FILTRATION RATE 110 ML/MIN (>89); GLUCOSE,RANDOM 136 MG/DL (74-106); SODIUM (NA) 139 MEQ/L (136-145); TOTAL BILIRUBIN ADULT 1.3 MG/DL (0.2-1.0); TOTAL PROTEIN 5.2 GM/DL (6.4-8.2)
[2018-02-17] MEDS ORDERED: SODIUM CHLOR 0.9% 250 ML INJ 250 ML IV ONE (14:00)
[2018-02-17] MEDS: cefTRIAXone INJ 1,000 MG in SODIUM CHLORIDE 0.9% INJ 100 ML IV SCH (14:37)
[2018-02-17 14:45] LABS: ALPHA-1-ANTITRYPSIN 204 mg/dL (100 - 190); SMOOTH MUSCLE TOTAL AUTOABS Negative (Negative)
[2018-02-17] MEDS: POTASSIUM CHLOR 20 MEQ PREMIX 100 ML IV SCH ×2 (15:00→18:58)
--- NOTE | 2018-02-17 15:16 | HHI.GIFU ---
Subjective Remarks Pt resting in bed, at bedside She remains confused today, oriented to person and place Began having multiple episodes of melena last night Denies nausea and vomiting Had a few bites for lunch (Lisa Dia) Objective Vitals I&O Vital Signs Date Time Temp Pulse Resp B/P (MAP) Pulse Ox O2 Delivery O2 Flow Rate FiO2 02/17/18 13:00 97.7 101 16 147/67 (93) 99 02/17/18 04:00 97.8 111 18 158/77 (104) 98 02/17/18 04:00 Room Air 02/17/18 00:00 Room Air 02/17/18 00:00 97.4 116 16 152/86 (108) 98 02/16/18 22:40 156/78 (104) 02/16/18 20:00 97.4 116 18 182/72 (108) 98 02/16/18 20:00 Room Air 02/16/18 16:01 97.4 122 18 173/79 (110) 99 I/O 02/16/18 02/16/18 02/16/18 02/17/18 02/17/18 02/17/18 07:00 15:00 23:00 07:00 15:00 23:00 Intake Total 1457 ml 973 ml 1700 ml Output Total 1400 ml Balance 1457 ml -427 ml 1700 ml Intake Oral 0 ml 380 ml 550 ml IV Total 1457 ml 593 ml 1150 ml Output Urine Total 1400 ml # Voids 2 3 # Bowel Movements 1 0 3 Laboratory Laboratory Tests Test 02/17/18 08:03 02/17/18 12:00 Ammonia 21 White Blood Count 7.5 Red Blood Count 2.54 Hemoglobin 7.7 Hematocrit 22.7 Mean Corpuscular Volume 89.0 Mean Corpuscular Hemoglobin 30.2 Mean Corpuscular Hemoglobin Concent 33.9 Red Cell Distribution Width 13.1 Platelet Count 190 Mean Platelet Volume 7.5 Neutrophils (%) (Auto) 81.9 Lymphocytes (%) (Auto) 6.9 Monocytes (%) (Auto) 10.2 Eosinophils (%) (Auto) 0.3 Basophils (%) (Auto) 0.7 Neutrophils # (Auto) 6.1 Lymphocytes # (Auto) 0.5 Monocytes # (Auto) 0.8 Eosinophils # (Auto) 0.0 Basophils # (Auto) 0.1 CBC Comment DIFF FINAL Differential Comment Blood Urea Nitrogen 23 Creatinine 0.53 Random Glucose 136 Total Protein 5.2 Albumin 2.8 Calcium Level 8.1 Alkaline Phosphatase 58 Aspartate Amino Transf (AST/SGOT) 484 Alanine Aminotransferase (ALT/SGPT) 2971 Total Bilirubin 1.3 Sodium Level 139 Potassium Level 2.2 Chloride Level 101 Carbon Dioxide Level 24.8 Anion Gap 13 Estimat Glomerular Filtration Rate 110 Date/Time Source Procedure Growth Status 02/17/18 11:00 Stool Stool Stool Occult Blood (ROSAS) - Final HEMOCCULT POSITIVE Complete 02/15/18 14:30 Urine Random Urine Urine Culture - Final Escherichia Coli Complete Imaging Last Impressions Abdomen/Pelvis CT 02/15/18 1223 Signed Impressions: CONCLUSION: 1. Moderately distended gallbladder with questionable trace pericholecystic fl uid. Cannot exclude acute cholecystitis in the appropriate clinical setting. Co nsider further evaluation with ultrasound exam. 2. Mild airspace consolidation in the inferior lingula and right middle lobe w hich may reflect aspiration, if so likely chronic. 3. Ancillary findings include sigmoid diverticulosis, small hiatal hernia, deg enerative spondylosis of the lumbar spine and probable leiomyomatous uterus. Head CT 02/15/18 0000 Signed Impressions: CONCLUSION: 1. No acute intracranial abnormalities. Gall Bladder Ultrasound 02/15/18 0000 Signed Impressions: CONCLUSION: 1. No acute findings. Echogenic right kidney which may indicate medical renal disease. No gallstones or biliary ductal dilatation. Physical Exam HEENT: Normocephalic; atraumatic CHEST: Even/unlabored CARDIAC: RRR ABDOMEN: Soft, nondistended, nontender; bowel sounds active EXTREMITIES: No clubbing, cyanosis, or edema. SKIN: Normal; no rash; no jaundice. 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 Denies ETOH. Of note, has been taking 1000mg of Tylenol q 3hs for 2 years for headaches. Denies any other OTC medications, herbs, supplements. CT abdomen and pelvis W IV contrast --> Moderately distended gallbladder with questionable trace pericholecystic fluid. Ancillary findings include sigmoid diverticulosis, small hiatal hernia. US gallbladder --> No acute findings. Echogenic right kidney which may indicate medical renal disease. No gallstones or biliary ductal dilatation. Hepatitis panel negative (02/16) Pt lethargic today and confused, per pts at bedside she has been asking questions this morning that don't make any sense. Her LFTs has increased significantly today. Ammonia level 52. Pt on Acetylcysteine AST-4870 ALT-5405 T bili-1.5 Alk phos-[address] Allen this morning, based on liver enzymes, he does not think this gallbladder related. (02/17) Case discussed by Dr. Rhodes with fuel management handler from [facility], Dr. Carter, pt was denied transfer to [facility] for work up for liver transplant because of her age. Improvement in LFTs today, AST-484 ALT-2971 T bili-1.3 Alk phos-58 Pt remains confused today, oriented to person and place. Ammonia-21 Significant drop in hgb over night, per RN pt began having multiple episodes of melena over night. Pt denies nausea, vomiting, abdominal pain. Repeat PT/INR pending. Pt on daily Vit K. Plan: NPO now 2 U PRBCs to be transfused Obtain consent for EGD- timing TBD Liver AYERS HFE Acetylcysteine Lactulose Avoid hepatotoxic medications Monitor labs Further recommendations based on clinical course Pt has been seen and examined by myself and Dr. Salazar and this note is written on her behalf (Lisa Dia) Physician Comments seen, examined , agree with above pt/inr stat transfer ro ICU for observation patient had solid food for lunch, EGD in am unless emergency discussed with (Saima Salazar MD) Lisa Dia Feb 17, 2018 15:16 Saima Salazar MD Feb 17, 2018 15:48
[2018-02-17 16:46] LABS: BICARBONATE 24.3 MEQ/L (21.0-32.0); CALCIUM 8.1 MG/DL (8.5-10.1); CREATININE 0.59 MG/DL (0.50-1.00)
[2018-02-17 17:00] VITALS: BP 148/70; PULSE 132; RESP 36; TEMP 98.4; O2SAT 100
[2018-02-17 17:10] LABS: INTERNATIONAL NORMALIZED RATIO 1.2 RATIO
[2018-02-17 20:00] VITALS: BP 181/79; PULSE 100; RESP 16; TEMP 98; O2SAT 100
[2018-02-17] MEDS: PANTOPRAZOLE INJ 80 MG in SODIUM CHLORIDE 0.9% INJ 100 ML IV SCH (21:48)
[2018-02-17] MEDS: DONEPEZIL HCL 5 MG TAB PO SCH (21:49)
[2018-02-18] VITALS (12 sets, daily range): BP systolic 143–174; BP diastolic 65–75; PULSE 78–90; RESP 14–18; TEMP 97.6–98.8; O2SAT 97–99
[2018-02-18 01:49] LABS: BASOPHIL # 0.1 TH/MM3 (0-0.2); EOSINOPHIL # 0.1 TH/MM3 (0-0.4); EOSINOPHIL % 1.8 % (0.0-4.0); HEMATOCRIT 31.5 % (35.0-46.0); HEMOGLOBIN 11.1 GM/DL (11.6-15.3); LYMPH % 10.5 % (9.0-44.0); LYMPHOCYTE # 0.8 TH/MM3 (1.0-4.8); MEAN CELL VOLUME 87.1 FL (80.0-100.0); MEAN CORPUSCULAR HEMOGLOBIN 30.7 PG (27.0-34.0); MEAN CORPUSCULAR HGB CONC 35.2 % (32.0-36.0); MEAN PLATELET VOLUME 7.3 FL (7.0-11.0); MONO % 11.3 % (0.0-8.0); MONOCYTE # 0.9 TH/MM3 (0-0.9); NEUT % 75.4 % (16.0-70.0); PLATELET COUNT 181 TH/MM3 (150-450); RED BLOOD COUNT 3.61 MIL/MM3 (4.00-5.30); RED CELL DISTRIBUTION WIDTH 13.7 % (11.6-17.2)
[2018-02-18 03:10] LABS: ALBUMIN 2.8 GM/DL (3.4-5.0); ALKALINE PHOSPHATASE 56 U/L (45-117); ALT (GPT) 2313 U/L (10-53); AST (GOT) 186 U/L (15-37); BICARBONATE 23.8 MEQ/L (21.0-32.0); BLOOD UREA NITROGEN 14 MG/DL (7-18); CALCIUM 8.1 MG/DL (8.5-10.1); CHLORIDE 105 MEQ/L (98-107); CREATININE 0.38 MG/DL (0.50-1.00); GLOMERULAR FILTRATION RATE 162 ML/MIN (>89); GLUCOSE,RANDOM 121 MG/DL (74-106); SODIUM (NA) 140 MEQ/L (136-145); TOTAL BILIRUBIN ADULT 2.8 MG/DL (0.2-1.0); TOTAL PROTEIN 5.3 GM/DL (6.4-8.2)
[2018-02-18] MEDS: SODIUM CHLOR 0.9% 1000 ML INJ 1,000 ML IV SCH ×2 (03:56→16:38)
[2018-02-18] MEDS: POTASSIUM CHLORIDE 10 MEQ CONTROLLED RELEASE TAB PO SCH ×4 (03:57→07:58)
[2018-02-18] MEDS ORDERED: POTASSIUM CHLOR 20 MEQ PREMIX 100 ML IV ONE (04:00)
[2018-02-18] MEDS: PANTOPRAZOLE INJ 80 MG in SODIUM CHLORIDE 0.9% INJ 100 ML IV SCH ×2 (06:01→16:38)
[2018-02-18] MEDS: HYDROCHLOROTHIAZIDE 25 MG TAB PO SCH (07:48)
[2018-02-18] MEDS: LACTULOSE SYRUP 20 GM/30 ML CUP PO SCH ×2 (07:51→20:34)
[2018-02-18] MEDS: SODIUM CHLORIDE 0.9% FLUSH 10 ML FLUSH IV FLUSH SCH ×2 (07:58→20:33)
[2018-02-18] MEDS: TOPIRAMATE 25 MG TAB PO SCH ×2 (07:58→20:33)
[2018-02-18] MEDS: LISINOPRIL 20 MG TAB PO SCH (07:59)
[2018-02-18] MEDS: SERTRALINE HCL 50 MG TAB PO SCH (07:59)
[2018-02-18] MEDS: PHYTONADIONE 10 MG/ML VIAL SQ SCH (08:00)
[2018-02-18] MEDS: risperiDONE 0.5 MG TAB PO SCH ×2 (09:00→20:33)
--- NOTE | 2018-02-18 09:43 | HHI.PR ---
Subjective Remarks No pain Less confused No n/v/d/c. Plan for EGD Objective Vitals Vital Signs Date Time Temp Pulse Resp B/P (MAP) Pulse Ox O2 Delivery O2 Flow Rate FiO2 02/18/18 06:00 85 02/18/18 04:00 97.9 80 16 151/67 (95) 99 02/18/18 04:00 80 02/18/18 02:00 81 02/18/18 00:00 97.8 90 15 143/65 (91) 97 02/17/18 20:00 100 02/17/18 20:00 98.0 100 16 181/79 (113) 100 Manual Cuff/Auscultation 02/17/18 17:00 98.4 132 36 148/70 (96) 100 02/17/18 13:00 97.7 101 16 147/67 (93) 99 I/O 02/17/18 02/17/18 02/17/18 02/18/18 02/18/18 02/18/18 07:00 15:00 23:00 07:00 15:00 23:00 Intake Total 1700 ml 1070 ml 20 ml Output Total 675 ml Balance 1700 ml 395 ml 20 ml Intake Oral 550 ml 0 ml 20 ml IV Total 1150 ml 100 ml Packed Cells 800 ml Blood Product IV Normal Saline Flush 170 ml Output Urine Total 675 ml # Voids 3 2 4 # Bowel Movements 3 0 4 Result Diagram: 02/18/18 0119 02/18/18 0119 Imaging Last Impressions Abdomen/Pelvis CT 02/15/18 1223 Signed Impressions: CONCLUSION: 1. Moderately distended gallbladder with questionable trace pericholecystic fl uid. Cannot exclude acute cholecystitis in the appropriate clinical setting. Co nsider further evaluation with ultrasound exam. 2. Mild airspace consolidation in the inferior lingula and right middle lobe w hich may reflect aspiration, if so likely chronic. 3. Ancillary findings include sigmoid diverticulosis, small hiatal hernia, deg enerative spondylosis of the lumbar spine and probable leiomyomatous uterus. Head CT 02/15/18 0000 Signed Impressions: CONCLUSION: 1. No acute intracranial abnormalities. Gall Bladder Ultrasound 02/15/18 0000 Signed Impressions: CONCLUSION: 1. No acute findings. Echogenic right kidney which may indicate medical renal disease. No gallstones or biliary ductal dilatation. Objective Remarks GENERAL: This is a pleasantly confused well-nourished, well-developed patient, in no apparent distress. CARDIOVASCULAR: Regular rate and rhythm without murmurs, gallops, or rubs. RESPIRATORY: Clear to auscultation. Breath sounds equal bilaterally. No wheezes , rales, or rhonchi. GASTROINTESTINAL: Abdomen soft, non-tender, nondistended. No hepato-splenomegaly , or palpable masses. No guarding. MUSCULOSKELETAL: Extremities without clubbing, cyanosis, or edema. No joint tenderness, effusion, or edema noted. No calf tenderness. Negative Homans sign bilaterally. NEUROLOGICAL: Awake and alert. Cranial nerves II through XII intact. Motor and sensory grossly within normal limits. Five out of 5 muscle strength in all muscle groups. Tremor BL which per report says is chronic. Normal speech. A/P Assessment and Plan Hypovolemic hyponatremia. Possibly symptomatic with confusion. Sodium 123 on admission. Baseline in the 130s. Na back to normal. Check magnesium. Likely secondary to dehydration. IV fluids. Monitor. Encephalopathy. Patient does have chronic dementia on donepezil. Likely secondary to poor appetite, possible infection Possibly secondary to hyponatremia we will check ammonia, CT head no acute findings . Suspected Tylenol overdose Transaminitis. Acute Patient is on Tylenol 1000 mg every 3 hours as needed for headache. As patient has had a headache over the past week, she has been taking Tylenol. AST 573, ALT 1112 on admission. Bilirubin 2.0. Trending down. Tylenol level 23 on admission. Acetylcysteine as per GI. Ultrasound and hepatitis profile negative GI following. Appreciate assistance. 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 CM consulted. Patient is not accepted to [facility]. Possible cholecystitis. Acute. Leukocytosis Possible Sepsis CT abdomen as above. Leukocytosis. General surgery following. No cholecystitis, GS signed off Continue on Zosyn. Hypokalemia: Replaced. Anemia: HGD dropped to 7.7, FOBT positive. Transfuse 2 U PrBNC, Monitor H/H . Consult GI . EGD 02/18/18 Chronic headaches. Acute on chronic exacerbation. The medication as necessary. Atrial fibrillation. Continue on atenolol. Patient is not on full anticoagulation, however is on aspirin and Plavix due to carotid stenosis. Carotid stenosis. On Plavix and aspirin at home Hypertension. Chronic. Continue home medications as necessary. Depression. Chronic. Continue home medications Discussed Condition With ICU nurse, patient. Plan for EGD Virginia Roca MD Feb 18, 2018 09:43
[2018-02-18] MEDS ORDERED: POTASSIUM PHOSPHATE MONOBASIC 500 MG TAB PO/TUBE PRN (09:45)
[2018-02-18] MEDS ORDERED: MAGNESIUM OXIDE 400 MG TAB PO PRN (09:45)
[2018-02-18] MEDS ORDERED: MAGNESIUM SULFATE INJ 4 GM in SODIUM CHLORIDE 0.9% INJ 92 ML IV PRN (09:45)
[2018-02-18] MEDS ORDERED: POTASSIUM PHOSPHATE INJ 30 MMOL in SODIUM CHLOR 0.9% 250 ML INJ 250 ML IV PRN (09:45)
[2018-02-18] MEDS ORDERED: POTASSIUM CHLOR 20 MEQ PREMIX 100 ML IV PRN (09:45)
[2018-02-18] MEDS ORDERED: MAGNESIUM SULFATE INJ 2 GM in SODIUM CHLORIDE 0.9% INJ 96 ML IV PRN (09:45)
[2018-02-18] MEDS ORDERED: POTASSIUM CHLORIDE 25 MEQ EFFERVESCENT TAB PO PRN (09:45)
[2018-02-18] MEDS ORDERED: POTASSIUM CHLOR 40 MEQ PREMIX 100 ML IV PRN ×2 (09:45)
[2018-02-18] MEDS ORDERED: SODIUM PHOSPHATE INJ 30 MMOL in SODIUM CHLOR 0.9% 250 ML INJ 240 ML IV PRN (09:45)
[2018-02-18] MEDS ORDERED: POTASSIUM PHOSPHATE MONOBASIC 500 MG TAB PO PRN (09:45)
--- NOTE | 2018-02-18 11:51 | GIPROC ---
[facility] [address] [facility]. [facility], [address] EGD PROCEDURE REPORT EXAM DATE: 02/18/2018 PATIENT NAME: Nichol Ferreira MR #: [id number] BIRTHDATE: 1935 ATTENDING: Saima Salazar MD ORDER #: [id number] AUTO SERVICE ADVISOR: Javier Colunga and Lala Parish STATUS: inpatient INDICATIONS: The patient is a 82 yr old female here for an EGD due to anemia, gi bleeding PROCEDURE PERFORMED: EGD w/ biopsy MEDICATIONS: None and Per Anesthesia. TOPICAL ANESTHETIC: none CONSENT: The patient understands the risks and benefits of the procedure and understands that these risks include, but are not limited to: sedation, allergic reaction, infection, perforation and/or bleeding. Alternative means of evaluation and treatment include, among others: physical exam, x-rays, and/or surgical intervention. The patient elects to proceed with this endoscopic procedure. medical equipment was checked for proper function. Hand hygiene and appropriate measures for infection prevention was taken. After the risks, benefits and alternatives of the procedure were thoroughly explained, Informed consent was verified, confirmed and timeout was successfully executed by the treatment team. The patient was anesthetized with topical anesthesia and the Pentax EG-[id number] endoscope was introduced through the mouth and advanced to the second portion of the duodenum. Retroflexed views revealed a hiatal hernia The gastroscope was then slowly withdrawn and removed. Multiple ulcers in duodenum , superficial/duodenitis-biopsy multiple superficial ulcers in antrum/gastrtiis -biopsy esophagitis distal esophagus-biopsy. ADVERSE EVENTS: There were no complications. IMPRESSIONS: 1. Multiple ulcers in duodenum , superficial/duodenitis-biopsy multiple superficial ulcers in antrum/gastrtiis -biopsy esophagitis distal esophagus-biopsy 2. Retroflexed views revealed a hiatal hernia RECOMMENDATIONS: 1. Await biopsy results. Biopsy results will not be ready for 7-10 days. If you don't hear from us in two weeks, call our office for biopsy results. 2. Anti-reflux regimen 3. Continue PPI 4. Avoid NSAIDS 5. Resume diet ppi carafate liquid ok to transfer to floor PATIENT CONDITION: stable DISPOSITION: Inpatient REPEAT EXAM: Return 6 weeks EGD Saima Salazar MD eSigned: Saima Salazar MD 02/18/2018 11:50 AM cc: PATIENT NAME: Nichol Ferreira MR#: [id number]
[2018-02-18] MEDS ORDERED: DO NOT ADM ANY ANTICOAGULANT DRUGS PRN (11:54)
[2018-02-18] MEDS ORDERED: LIDOCAINE HCL 1% PF 5 ML SYRINGE OTHER ONE (12:00)
[2018-02-18] MEDS ORDERED: PROPOFOL 200 MG/20 ML AMP IV ONE (12:00)
[2018-02-18 12:02] LABS: BICARBONATE 20.9 MEQ/L (21.0-32.0); CALCIUM 8.4 MG/DL (8.5-10.1); CREATININE 0.43 MG/DL (0.50-1.00)
[2018-02-18] MEDS: SUCRALFATE 1 GM/10 ML CUP PO SCH ×3 (12:53→20:33)
[2018-02-18] MEDS: cefTRIAXone INJ 1,000 MG in SODIUM CHLORIDE 0.9% INJ 100 ML IV SCH (12:53)
[2018-02-18] MEDS: hydrALAZINE HCL 10 MG TAB PO PRN (16:44)
--- NOTE | 2018-02-18 18:21 | EKG ---
Date Performed: 02/17/2018 Time Performed: 15:57:00 PTAGE: 82 years EKG: Sinus rhythm with PVC(s). QRS changes V3/V4 may be due to LVH but cannot rule out anterior infarct Possible LVH w ith secondary repolarization abnormality Inferior/lateral ST-T changes are probably due to ventricula r hypertrophy however ischemia cannot be excluded. Clinical correlation is recommended Abnormal ECG PREVIOUS TRACING : 02/15/2018 12.40 When compared to the prior EKG,there are new ST segment ida fts DOCTOR: Felisa Michelle Interpretating Date/Time 02/18/2018 18:20:48
--- NOTE | 2018-02-18 18:23 | EKG ---
Date Performed: 02/17/2018 Time Performed: 18:31:04 PTAGE: 82 years EKG: Sinus rhythm WITH OCCASIONAL VENTRICULAR PREMATURE COMPLEXES NONSPECIFIC ST & T-WAVE ABNORMALITY QRS changes V3/V 4 may be due to LVH but cannot rule out anterior infarct Possible LVH with secondary repolarization a bnormality Inferior/lateral ST-T changes are probably due to ventricular hypertrophy however ischemia cannot be excluded. Clinical correlation is recommended ABNORMAL ECG PREVIOUS TRACING : 02/15/2018 12.40 Since the previous tracing, no significant change noted DOCTOR: Felisa Michelle Interpretating Date/Time 02/18/2018 18:21:52
[2018-02-18] MEDS: DONEPEZIL HCL 5 MG TAB PO SCH (20:33)
[2018-02-19] VITALS (11 sets, daily range): BP systolic 151–167; BP diastolic 67–76; PULSE 82–104; RESP 15–25; TEMP 97.6–98.7; O2SAT 98–100
[2018-02-19] MEDS: SODIUM CHLOR 0.9% 1000 ML INJ 1,000 ML IV SCH ×3 (01:42→23:54)
[2018-02-19] MEDS: PANTOPRAZOLE INJ 80 MG in SODIUM CHLORIDE 0.9% INJ 100 ML IV SCH ×3 (01:43→23:54)
[2018-02-19] MEDS: hydrALAZINE HCL 10 MG TAB PO PRN (05:37)
[2018-02-19 07:55] LABS: AUTOMATED NEUTROPHIL # 6.2 TH/MM3 (1.8-7.7); BASOPHIL # 0.1 TH/MM3 (0-0.2); BASOPHIL % 0.7 % (0.0-2.0); EOSINOPHIL # 0.3 TH/MM3 (0-0.4); EOSINOPHIL % 3.4 % (0.0-4.0); HEMATOCRIT 31.8 % (35.0-46.0); HEMOGLOBIN 11.1 GM/DL (11.6-15.3); LYMPH % 8.8 % (9.0-44.0); LYMPHOCYTE # 0.7 TH/MM3 (1.0-4.8); MEAN CELL VOLUME 88.6 FL (80.0-100.0); MEAN CORPUSCULAR HEMOGLOBIN 30.9 PG (27.0-34.0); MEAN CORPUSCULAR HGB CONC 34.9 % (32.0-36.0); MEAN PLATELET VOLUME 7.1 FL (7.0-11.0); MONO % 10.3 % (0.0-8.0); MONOCYTE # 0.8 TH/MM3 (0-0.9); NEUT % 76.8 % (16.0-70.0); PLATELET COUNT 217 TH/MM3 (150-450); RED BLOOD COUNT 3.59 MIL/MM3 (4.00-5.30); RED CELL DISTRIBUTION WIDTH 14.1 % (11.6-17.2)
[2018-02-19 08:29] LABS: AST (GOT) 50 U/L (15-37); BICARBONATE 19.5 MEQ/L (21.0-32.0); CALCIUM 7.9 MG/DL (8.5-10.1); CHLORIDE 109 MEQ/L (98-107); CREATININE 0.38 MG/DL (0.50-1.00); GLOMERULAR FILTRATION RATE 162 ML/MIN (>89); GLUCOSE,RANDOM 119 MG/DL (74-106); SODIUM (NA) 140 MEQ/L (136-145)
--- NOTE | 2018-02-19 08:33 | HHI.PR ---
Subjective Remarks Patient appears to not acute distress. Says she feels better. No bleeding. Had a bowel movement. No fever or chills. Less abdominal pain. Eating better. She is more awake and alert however still pleasantly confused. Almost at her baseline. Objective Vitals Vital Signs Date Time Temp Pulse Resp B/P (MAP) Pulse Ox O2 Delivery O2 Flow Rate FiO2 02/19/18 06:00 91 02/19/18 04:00 82 02/19/18 04:00 98.1 82 16 158/69 (98) 98 02/19/18 02:00 88 02/19/18 00:00 98.5 87 15 167/76 (106) 98 02/19/18 00:00 87 02/18/18 22:00 88 02/18/18 20:00 90 02/18/18 20:00 98.8 90 16 163/75 (104) 99 02/18/18 18:00 83 02/18/18 16:00 97.6 90 18 162/72 (102) 98 02/18/18 16:00 90 02/18/18 14:00 85 02/18/18 12:36 82 02/18/18 12:15 77 16 132/70 (90) 98 Room Air 02/18/18 12:00 81 16 125/68 (87) 99 Room Air 02/18/18 12:00 83 14 156/73 (100) 99 02/18/18 11:53 97.7 86 16 153/88 (109) 100 Room Air 02/18/18 09:58 98.2 84 24 188/76 (113) 98 I/O 02/18/18 02/18/18 02/18/18 02/19/18 02/19/18 02/19/18 07:00 15:00 23:00 07:00 15:00 23:00 Intake Total 20 ml 200 ml 1780 ml 200 ml Balance 20 ml 200 ml 1780 ml 200 ml Intake Oral 20 ml 480 ml 200 ml IV Total 1300 ml Other 200 ml # Voids 4 3 4 # Bowel Movements 4 2 2 2 Result Diagram: 02/19/18 0649 02/19/18 0649 Imaging Last Impressions Abdomen/Pelvis CT 02/15/18 1223 Signed Impressions: CONCLUSION: 1. Moderately distended gallbladder with questionable trace pericholecystic fl uid. Cannot exclude acute cholecystitis in the appropriate clinical setting. Co nsider further evaluation with ultrasound exam. 2. Mild airspace consolidation in the inferior lingula and right middle lobe w hich may reflect aspiration, if so likely chronic. 3. Ancillary findings include sigmoid diverticulosis, small hiatal hernia, deg enerative spondylosis of the lumbar spine and probable leiomyomatous uterus. Head CT 02/15/18 0000 Signed Impressions: CONCLUSION: 1. No acute intracranial abnormalities. Gall Bladder Ultrasound 02/15/18 0000 Signed Impressions: CONCLUSION: 1. No acute findings. Echogenic right kidney which may indicate medical renal disease. No gallstones or biliary ductal dilatation. Objective Remarks GENERAL: This is a pleasantly confused well-nourished, well-developed patient, in no apparent distress. CARDIOVASCULAR: Regular rate and rhythm without murmurs, gallops, or rubs. RESPIRATORY: Clear to auscultation. Breath sounds equal bilaterally. No wheezes , rales, or rhonchi. GASTROINTESTINAL: Abdomen soft, non-tender, nondistended. No hepato-splenomegaly , or palpable masses. No guarding. MUSCULOSKELETAL: Extremities without clubbing, cyanosis, or edema. No joint tenderness, effusion, or edema noted. No calf tenderness. Negative Homans sign bilaterally. NEUROLOGICAL: Awake and alert. Cranial nerves II through XII intact. Motor and sensory grossly within normal limits. Five out of 5 muscle strength in all muscle groups. Tremor BL which per report says is chronic. Normal speech. A/P Assessment and Plan Hypovolemic hyponatremia. Possibly symptomatic with confusion. Sodium 123 on admission. Baseline in the 130s. Na back to normal. Check magnesium. Likely secondary to dehydration. IV fluids. Monitor. Encephalopathy metabolic and toxic ( hyponatremia, Tylenol toxicity, elevated ammonia). Resolving Patient also does have chronic dementia on donepezil. Lactulose , moitor Na level and ammonia level. CT head no acute findings. Suspected Tylenol overdose Transaminitis. Acute Patient was on Tylenol 1000 mg every 3 hours as needed for headache. As patient has had a headache over the past week MANAGER E LEARNING she has been taking Tylenol. AST 573, ALT 1112 on admission. Bilirubin 2.0. Trending down. Tylenol level 23 on admission, trending down. Acetylcysteine as per GI. Ultrasound and hepatitis profile negative GI following. Appreciate assistance. 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 CM consulted. Patient is not accepted to [facility] due to age. Also improving. Possible cholecystitis. Acute. Leukocytosis Possible Sepsis CT abdomen as above. Leukocytosis. General surgery following. No cholecystitis, GS signed off Continue on Zosyn. Hypokalemia: Replaced. Anemia 2/2 acute bleeding ith duodenal ulcers: HGD dropped to 7.7, FOBT positive. Transfused 2 U PrBC, Monitor H/H . Consult GI . EGD 02/18/[address] Marie Mohamud EGD 02/18 Multiple ulcers in duodenum , superficial/duodenitis-biopsy multiple superficial ulcers in antrum/ gastrtiis -biopsy, esophagitis distal esophagus- biopsy Hiatal hernia Avoid NSAIDS Carafate liquid Chronic headaches. Acute on chronic exacerbation. The medication as necessary. Atrial fibrillation. Continue on atenolol. Patient is not on full anticoagulation, however is on aspirin and Plavix due to carotid stenosis. Carotid stenosis. On Plavix and aspirin at home Hypertension. Chronic. Continue home medications as necessary. Depression. Chronic. Continue home medications Discussed Condition With ICU nurse, patient. The patient is improving , transfer to [facility] floor. Discharge plan patient with transaminitis Tylenol toxicity hyponatremia follow levels. Sodium back to normal. Consult poison following receiving MAC. S/P EGD was duodenal ulcers. Discharge when improved and cleared by consultants. Virginia Roca MD Feb 19, 2018 08:33
[2018-02-19] MEDS: risperiDONE 0.5 MG TAB PO SCH ×2 (08:35→21:37)
[2018-02-19] MEDS: TOPIRAMATE 25 MG TAB PO SCH ×2 (08:35→21:37)
[2018-02-19] MEDS: LACTULOSE SYRUP 20 GM/30 ML CUP PO SCH ×2 (08:36→21:00)
[2018-02-19] MEDS: LISINOPRIL 20 MG TAB PO SCH (08:36)
[2018-02-19] MEDS: POTASSIUM CHLORIDE 10 MEQ CONTROLLED RELEASE TAB PO SCH (08:36)
[2018-02-19] MEDS: SERTRALINE HCL 50 MG TAB PO SCH (08:36)
[2018-02-19] MEDS: SUCRALFATE 1 GM/10 ML CUP PO SCH ×4 (08:37→21:37)
[2018-02-19] MEDS: SODIUM CHLORIDE 0.9% FLUSH 10 ML FLUSH IV FLUSH SCH ×2 (08:37→21:38)
[2018-02-19] MEDS: HYDROCHLOROTHIAZIDE 25 MG TAB PO SCH (08:37)
[2018-02-19 08:40] LABS: ALBUMIN 2.8 GM/DL (3.4-5.0); ALKALINE PHOSPHATASE 60 U/L (45-117); ALT (GPT) 1385 U/L (10-53); BLOOD UREA NITROGEN 7 MG/DL (7-18); TOTAL BILIRUBIN ADULT 1.4 MG/DL (0.2-1.0); TOTAL PROTEIN 5.5 GM/DL (6.4-8.2)
[2018-02-19] MEDS ORDERED: MAGNESIUM OXIDE 400 MG TAB PO ONE (08:45)
[2018-02-19] MEDS ORDERED: POTASSIUM BICARBONATE 25 MEQ EFFERVESCENT TAB PO ONE (08:45)
[2018-02-19] MEDS: cefTRIAXone INJ 1,000 MG in SODIUM CHLORIDE 0.9% INJ 100 ML IV SCH (12:14)
--- NOTE | 2018-02-19 13:27 | HHI.GIFU ---
Subjective Remarks Patient is sitting up in the bed head of bed almost 90 eyes open, appears slightly obtunded but answering some simple questions and smiling. Currently denies any nausea vomiting and no abdominal pain BM remains dark according to patient Patient states she is eating and drinking a little bit (Jennifer Menon) Objective Vitals I&O Vital Signs Date Time Temp Pulse Resp B/P (MAP) Pulse Ox O2 Delivery O2 Flow Rate FiO2 02/19/18 12:00 95 22 151/67 (95) 100 02/19/18 12:00 95 02/19/18 10:00 91 02/19/18 08:00 88 02/19/18 08:00 97.6 88 23 164/73 (103) 98 02/19/18 06:00 91 02/19/18 04:00 82 02/19/18 04:00 98.1 82 16 158/69 (98) 98 02/19/18 02:00 88 02/19/18 00:00 98.5 87 15 167/76 (106) 98 02/19/18 00:00 87 02/18/18 22:00 88 02/18/18 20:00 90 02/18/18 20:00 98.8 90 16 163/75 (104) 99 02/18/18 18:00 83 02/18/18 16:00 97.6 90 18 162/72 (102) 98 02/18/18 16:00 90 02/18/18 14:00 85 I/O 02/18/18 02/18/18 02/18/18 02/19/18 02/19/18 02/19/18 07:00 15:00 23:00 07:00 15:00 23:00 Intake Total 20 ml 200 ml 1780 ml 200 ml Balance 20 ml 200 ml 1780 ml 200 ml Intake Oral 20 ml 480 ml 200 ml IV Total 1300 ml Other 200 ml # Voids 4 3 4 # Bowel Movements 4 2 2 2 Laboratory Laboratory Tests Test 02/18/18 17:30 02/18/18 19:10 02/19/18 06:49 Phosphorus Level 1.1 Stool C. difficile Toxin (PCR) NEGATIVE Stl C. difficile Toxin Epiderm 027 PRESUMPTIVE NEGATIVE White Blood Count 8.0 Red Blood Count 3.59 Hemoglobin 11.1 Hematocrit 31.8 Mean Corpuscular Volume 88.6 Mean Corpuscular Hemoglobin 30.9 Mean Corpuscular Hemoglobin Concent 34.9 Red Cell Distribution Width 14.1 Platelet Count 217 Mean Platelet Volume 7.1 Neutrophils (%) (Auto) 76.8 Lymphocytes (%) (Auto) 8.8 Monocytes (%) (Auto) 10.3 Eosinophils (%) (Auto) 3.4 Basophils (%) (Auto) 0.7 Neutrophils # (Auto) 6.2 Lymphocytes # (Auto) 0.7 Monocytes # (Auto) 0.8 Eosinophils # (Auto) 0.3 Basophils # (Auto) 0.1 CBC Comment DIFF FINAL Differential Comment Blood Urea Nitrogen 7 Creatinine 0.38 Random Glucose 119 Total Protein 5.5 Albumin 2.8 Calcium Level 7.9 Alkaline Phosphatase 60 Aspartate Amino Transf (AST/SGOT) 50 Alanine Aminotransferase (ALT/SGPT) 1385 Total Bilirubin 1.4 Sodium Level 140 Potassium Level 3.1 Chloride Level 109 Carbon Dioxide Level 19.5 Anion Gap 12 Estimat Glomerular Filtration Rate 162 Date/Time Source Procedure Growth Status 02/17/18 11:00 Stool Stool Stool Occult Blood (ROSAS) - Final HEMOCCULT POSITIVE Complete 02/15/18 14:30 Urine Random Urine Urine Culture - Final Escherichia Coli Complete Imaging Last Impressions Abdomen/Pelvis CT 02/15/18 1223 Signed Impressions: CONCLUSION: 1. Moderately distended gallbladder with questionable trace pericholecystic fl uid. Cannot exclude acute cholecystitis in the appropriate clinical setting. Co nsider further evaluation with ultrasound exam. 2. Mild airspace consolidation in the inferior lingula and right middle lobe w hich may reflect aspiration, if so likely chronic. 3. Ancillary findings include sigmoid diverticulosis, small hiatal hernia, deg enerative spondylosis of the lumbar spine and probable leiomyomatous uterus. Head CT 02/15/18 0000 Signed Impressions: CONCLUSION: 1. No acute intracranial abnormalities. Gall Bladder Ultrasound 02/15/18 0000 Signed Impressions: CONCLUSION: 1. No acute findings. Echogenic right kidney which may indicate medical renal disease. No gallstones or biliary ductal dilatation. Physical Exam HEENT: Normocephalic; atraumatic CHEST: Even/unlabored CARDIAC: RRR ABDOMEN: Soft, nondistended, nontender to light palpation; bowel sounds active EXTREMITIES: No clubbing, cyanosis, or edema. SKIN: Normal; no rash; no jaundice. ORACLE ANALYST: Eyes open mild lethargy but does answer simple questions and becomes more interactive with extended conversation (Jennifer Menon) Assessment and Plan Plan Assessment: - Elevated LFTs T bili-2 AST-573 ALT-1112 Pt denies history of liver issues. Denies ETOH. Of note, has been taking 1000mg of Tylenol q 3hs for 2 years for headaches. Denies any other OTC medications, herbs, supplements. CT abdomen and pelvis W IV contrast --> Moderately distended gallbladder with questionable trace pericholecystic fluid. Ancillary findings include sigmoid diverticulosis, small hiatal hernia. US gallbladder --> No acute findings. Echogenic right kidney which may indicate medical renal disease. No gallstones or biliary ductal dilatation. Hepatitis panel negative (02/16) Pt lethargic today and confused, per pts at bedside she has been asking questions this morning that don't make any sense. Her LFTs has increased significantly today. Ammonia level 52. Pt on Acetylcysteine AST-4870 ALT-5405 T bili-1.5 Alk phos-[address] Allen this morning, based on liver enzymes, he does not think this gallbladder related. (02/17) Case discussed by Dr. Rhodes with wood casket assembler from [facility], Dr. Carter, pt was denied transfer to [facility] for work up for liver transplant because of her age. Improvement in LFTs today, AST-484 ALT-2971 T bili-1.3 Alk phos-58 Pt remains confused today, oriented to person and place. Ammonia-21 Significant drop in hgb over night, per RN pt began having multiple episodes of melena over night. Pt denies nausea, vomiting, abdominal pain. Repeat PT/INR pending. Pt on daily Vit K. 02/19/2018 patient is sitting up in the bed and responds to simple questions. Status post EGD on 02/18/2018 findings include multiple ulcers in the duodenum superficial duodenitis and multiple ulcers in the gastrum with gastritis. Biopsies performed hiatal hernia Liver workup pending, patient continues with IV fluids for hydration 100 cc an hour. Patient states BM dark. Patient appears with some mild lethargy but able to answer simple questions. Currently denies any nausea or vomiting or abdominal pain. Will continue to medically manage and monitor patient's GI bleed and symptoms from her multiple ulcers. Hemochromatosis labs are pending, GABE and AMSA negative. Plan Diet Avoid nephrotoxic agents and NSAIDs and Tylenol for now Antireflux regimen, PPI Carafate liquid Okay from GI standpoint to transition to regular room We will need return EGD in 6 weeks Monitor labs with special attention to hemoglobin Patient was seen per myself and Dr. Salazar, note was written on her behalf (Jennifer Menon) Physician Comments seen, examined agree with above ok to transfer to floor from gi point avoid nsaids if stable can dc home in 1-2 days (Saima Salazar MD) Jennifer Menon Feb 19, 2018 13:27 Saima Salazar MD Feb 19, 2018 15:27
[2018-02-19] MEDS: POTASSIUM CHLOR 20 MEQ PREMIX 100 ML IV PRN ×2 (21:37→23:42)
[2018-02-19] MEDS: DONEPEZIL HCL 5 MG TAB PO SCH (21:37)
[2018-02-20] VITALS: BP 156/72; PULSE 90; RESP 22; TEMP 98.7; O2SAT 99
[2018-02-20] MEDS: POTASSIUM CHLOR 20 MEQ PREMIX 100 ML IV PRN (01:45)
[2018-02-20 04:00] VITALS: BP 174/77; PULSE 94; RESP 35; TEMP 98.1; O2SAT 99
[2018-02-20 04:52] LABS: AUTOMATED NEUTROPHIL # 8.3 TH/MM3 (1.8-7.7); BASOPHIL # 0.1 TH/MM3 (0-0.2); BASOPHIL % 0.6 % (0.0-2.0); EOSINOPHIL # 0.4 TH/MM3 (0-0.4); EOSINOPHIL % 3.4 % (0.0-4.0); HEMOGLOBIN 11.3 GM/DL (11.6-15.3); LYMPH % 8.3 % (9.0-44.0); LYMPHOCYTE # 0.9 TH/MM3 (1.0-4.8); MEAN CELL VOLUME 88.9 FL (80.0-100.0); MEAN CORPUSCULAR HEMOGLOBIN 30.6 PG (27.0-34.0); MEAN CORPUSCULAR HGB CONC 34.4 % (32.0-36.0); MEAN PLATELET VOLUME 7.2 FL (7.0-11.0); MONO % 11.3 % (0.0-8.0); MONOCYTE # 1.2 TH/MM3 (0-0.9); NEUT % 76.4 % (16.0-70.0); PLATELET COUNT 249 TH/MM3 (150-450); RED BLOOD COUNT 3.71 MIL/MM3 (4.00-5.30); RED CELL DISTRIBUTION WIDTH 14.4 % (11.6-17.2); WHITE BLOOD COUNT 10.9 TH/MM3 (4.0-11.0)
[2018-02-20 05:36] LABS: ALKALINE PHOSPHATASE 71 U/L (45-117); ALT (GPT) 1057 U/L (10-53); AST (GOT) 39 U/L (15-37); BICARBONATE 21.6 MEQ/L (21.0-32.0); BLOOD UREA NITROGEN 6 MG/DL (7-18); CHLORIDE 106 MEQ/L (98-107); CREATININE 0.48 MG/DL (0.50-1.00); GLOMERULAR FILTRATION RATE 124 ML/MIN (>89); GLUCOSE,RANDOM 115 MG/DL (74-106); MAGNESIUM 1.7 MG/DL (1.5-2.5); SODIUM (NA) 138 MEQ/L (136-145); TOTAL BILIRUBIN ADULT 1.2 MG/DL (0.2-1.0); TOTAL PROTEIN 5.7 GM/DL (6.4-8.2)
[2018-02-20 08:00] VITALS: BP 172/76; PULSE 86; PULSE 90; RESP 22; TEMP 98.7; O2SAT 98
[2018-02-20] MEDS: LACTULOSE SYRUP 20 GM/30 ML CUP PO SCH ×2 (09:00→22:10)
[2018-02-20] MEDS: SODIUM CHLORIDE 0.9% FLUSH 10 ML FLUSH IV FLUSH SCH ×2 (09:22→22:11)
[2018-02-20] MEDS: LISINOPRIL 20 MG TAB PO SCH (09:23)
[2018-02-20] MEDS: SUCRALFATE 1 GM/10 ML CUP PO SCH ×4 (09:23→22:10)
[2018-02-20] MEDS: POTASSIUM CHLORIDE 10 MEQ CONTROLLED RELEASE TAB PO SCH (09:23)
[2018-02-20] MEDS: HYDROCHLOROTHIAZIDE 25 MG TAB PO SCH (09:23)
[2018-02-20] MEDS: SERTRALINE HCL 50 MG TAB PO SCH (09:24)
[2018-02-20] MEDS: TOPIRAMATE 25 MG TAB PO SCH ×2 (09:24→22:11)
[2018-02-20] MEDS: risperiDONE 0.5 MG TAB PO SCH ×2 (09:24→22:11)
[2018-02-20] MEDS: SODIUM CHLOR 0.9% 1000 ML INJ 1,000 ML IV SCH ×2 (10:56→22:12)
[2018-02-20] MEDS: PANTOPRAZOLE INJ 80 MG in SODIUM CHLORIDE 0.9% INJ 100 ML IV SCH (10:57)
[2018-02-20 12:00] VITALS: BP 132/61; PULSE 88; RESP 20; TEMP 98.4; O2SAT 98
[2018-02-20] MEDS: cefTRIAXone INJ 1,000 MG in SODIUM CHLORIDE 0.9% INJ 100 ML IV SCH (12:44)
--- NOTE | 2018-02-20 13:48 | HHI.GIFU ---
Subjective Remarks Pt is sitting up in bed, not voicing any concerns (Maria Antonia Denise) Objective Vitals I&O Vital Signs Date Time Temp Pulse Resp B/P (MAP) Pulse Ox O2 Delivery O2 Flow Rate FiO2 02/20/18 12:00 98.4 88 20 132/61 (84) 98 02/20/18 12:00 88 02/20/18 08:00 90 02/20/18 08:00 98.7 86 22 172/76 (108) 98 02/20/18 04:00 98.1 94 35 174/77 (109) 99 02/20/18 04:00 94 02/20/18 00:00 90 02/20/18 00:00 98.7 90 22 156/72 (100) 99 02/19/18 20:00 98.6 98 22 160/72 (101) 98 02/19/18 20:00 98 02/19/18 18:00 90 02/19/18 16:00 98.7 92 25 151/69 (96) 99 02/19/18 16:00 92 02/19/18 14:00 104 I/O 02/19/18 02/19/18 02/19/18 02/20/18 02/20/18 02/20/18 07:00 15:00 23:00 07:00 15:00 23:00 Intake Total 200 ml 960 ml 1740 ml 1100 ml Balance 200 ml 960 ml 1740 ml 1100 ml Intake Oral 200 ml 960 ml 240 ml IV Total 1500 ml 1100 ml # Voids 4 1 4 2 1 # Bowel Movements 2 2 1 Laboratory Laboratory Tests Test 02/19/18 19:53 02/20/18 04:15 Potassium Level 3.1 4.0 White Blood Count 10.9 Red Blood Count 3.71 Hemoglobin 11.3 Hematocrit 33.0 Mean Corpuscular Volume 88.9 Mean Corpuscular Hemoglobin 30.6 Mean Corpuscular Hemoglobin Concent 34.4 Red Cell Distribution Width 14.4 Platelet Count 249 Mean Platelet Volume 7.2 Neutrophils (%) (Auto) 76.4 Lymphocytes (%) (Auto) 8.3 Monocytes (%) (Auto) 11.3 Eosinophils (%) (Auto) 3.4 Basophils (%) (Auto) 0.6 Neutrophils # (Auto) 8.3 Lymphocytes # (Auto) 0.9 Monocytes # (Auto) 1.2 Eosinophils # (Auto) 0.4 Basophils # (Auto) 0.1 CBC Comment DIFF FINAL Differential Comment Blood Urea Nitrogen 6 Creatinine 0.48 Random Glucose 115 Total Protein 5.7 Albumin 3.0 Calcium Level 8.0 Magnesium Level 1.7 Alkaline Phosphatase 71 Aspartate Amino Transf (AST/SGOT) 39 Alanine Aminotransferase (ALT/SGPT) 1057 Total Bilirubin 1.2 Sodium Level 138 Chloride Level 106 Carbon Dioxide Level 21.6 Anion Gap 10 Estimat Glomerular Filtration Rate 124 Date/Time Source Procedure Growth Status 02/17/18 11:00 Stool Stool Stool Occult Blood (ROSAS) - Final HEMOCCULT POSITIVE Complete 02/15/18 14:30 Urine Random Urine Urine Culture - Final Escherichia Coli Complete Imaging Last Impressions Abdomen/Pelvis CT 02/15/18 1223 Signed Impressions: CONCLUSION: 1. Moderately distended gallbladder with questionable trace pericholecystic fl uid. Cannot exclude acute cholecystitis in the appropriate clinical setting. Co nsider further evaluation with ultrasound exam. 2. Mild airspace consolidation in the inferior lingula and right middle lobe w hich may reflect aspiration, if so likely chronic. 3. Ancillary findings include sigmoid diverticulosis, small hiatal hernia, deg enerative spondylosis of the lumbar spine and probable leiomyomatous uterus. Head CT 02/15/18 0000 Signed Impressions: CONCLUSION: 1. No acute intracranial abnormalities. Gall Bladder Ultrasound 02/15/18 0000 Signed Impressions: CONCLUSION: 1. No acute findings. Echogenic right kidney which may indicate medical renal disease. No gallstones or biliary ductal dilatation. Physical Exam HEENT: Normocephalic; atraumatic CHEST: Even/unlabored CARDIAC: RRR ABDOMEN: Soft, nondistended, nontender to light palpation; bowel sounds active EXTREMITIES: No clubbing, cyanosis, or edema. SKIN: Normal; no rash; no jaundice. INGREDIENT SPECIALIST: Alert and oriented (Joaquinawi,Claireawcharlene FRANCO) Assessment and Plan Plan Assessment: - Elevated LFTs T bili-2 AST-573 ALT-1112 Pt denies history of liver issues. Denies ETOH. Of note, has been taking 1000mg of Tylenol q 3hs for 2 years for headaches. Denies any other OTC medications, herbs, supplements. CT abdomen and pelvis W IV contrast --> Moderately distended gallbladder with questionable trace pericholecystic fluid. Ancillary findings include sigmoid diverticulosis, small hiatal hernia. US gallbladder --> No acute findings. Echogenic right kidney which may indicate medical renal disease. No gallstones or biliary ductal dilatation. Hepatitis panel negative (02/16) Pt lethargic today and confused, per pts at bedside she has been asking questions this morning that don't make any sense. Her LFTs has increased significantly today. Ammonia level 52. Pt on Acetylcysteine AST-4870 ALT-5405 T bili-1.5 Alk phos-[address] Allen this morning, based on liver enzymes, he does not think this gallbladder related. (02/17) Case discussed by Dr. Rhodes with manager psychology from [facility], Dr. Carter, pt was denied transfer to [facility] for work up for liver transplant because of her age. Improvement in LFTs today, AST-484 ALT-2971 T bili-1.3 Alk phos-58 Pt remains confused today, oriented to person and place. Ammonia-21 Significant drop in hgb over night, per RN pt began having multiple episodes of melena over night. Pt denies nausea, vomiting, abdominal pain. Repeat PT/INR pending. Pt on daily Vit K. 02/19/2018 patient is sitting up in the bed and responds to simple questions. Status post EGD on 02/18/2018 findings include multiple ulcers in the duodenum superficial duodenitis and multiple ulcers in the gastrum with gastritis. Biopsies performed hiatal hernia Liver workup pending, patient continues with IV fluids for hydration 100 cc an hour. Patient states BM dark. Patient appears with some mild lethargy but able to answer simple questions. Currently denies any nausea or vomiting or abdominal pain. Will continue to medically manage and monitor patient's GI bleed and symptoms from her multiple ulcers. Hemochromatosis labs are pending, GABE and AMSA negative. 02/20/18 pt not voicing any concerns, answering questions appropriately. EGD as above, bx benign AMa still pending, Celiac panel and Hfe pending, LFTs still high but trending down Plan Diet Avoid nephrotoxic agents and NSAIDs and Tylenol for now Antireflux regimen, PPI Carafate liquid Okay from GI standpoint to transition to regular room We will need return EGD in 6 weeks Monitor labs with special attention to hemoglobin Await rest of labs Patient was seen per myself and Dr. Salazar, note was written on her behalf (Maria Antonia Denise) Physician Comments seen, examined agree with above (Saima Salazar MD) Maria Antonia Denise Feb 20, 2018 13:48 Saima Salazar MD Feb 20, 2018 20:39
--- NOTE | 2018-02-20 15:45 | HHI.PR ---
Subjective Remarks Patient says she is feeling all right. Denies any chest pain or shortness of breath. Denies abdominal pain. Denies nausea vomiting. Objective Vital Signs Date Time Temp Pulse Resp B/P (MAP) Pulse Ox O2 Delivery O2 Flow Rate FiO2 02/20/18 12:00 98.4 88 20 132/61 (84) 98 02/20/18 12:00 88 02/20/18 08:00 90 02/20/18 08:00 98.7 86 22 172/76 (108) 98 02/20/18 04:00 98.1 94 35 174/77 (109) 99 02/20/18 04:00 94 02/20/18 00:00 90 02/20/18 00:00 98.7 90 22 156/72 (100) 99 02/19/18 20:00 98.6 98 22 160/72 (101) 98 02/19/18 20:00 98 02/19/18 18:00 90 02/19/18 16:00 98.7 92 25 151/69 (96) 99 02/19/18 16:00 92 I/O 02/19/18 02/19/18 02/19/18 02/20/18 02/20/18 02/20/18 07:00 15:00 23:00 07:00 15:00 23:00 Intake Total 200 ml 960 ml 1740 ml 1205 ml Balance 200 ml 960 ml 1740 ml 1205 ml Intake Oral 200 ml 960 ml 240 ml IV Total 1500 ml 1205 ml # Voids 4 1 4 2 1 # Bowel Movements 2 2 1 Result Diagram: 02/20/18 0415 02/20/18 0415 Objective Remarks GENERAL: Awake, alert. Patient seems confused regarding medical treatment, how ever technically is oriented 3. SKIN: Warm and dry. HEAD: Normocephalic. EYES: No scleral icterus. No injection or drainage. NECK: Supple, trachea midline. No JVD or lymphadenopathy. CARDIOVASCULAR: Regular rate and rhythm without murmurs, gallops, or rubs. RESPIRATORY: Breath sounds equal bilaterally. No accessory muscle use. GASTROINTESTINAL: Abdomen soft, non-tender, nondistended. MUSCULOSKELETAL: No cyanosis, or edema. BACK: Nontender without obvious deformity. No CVA tenderness. A/P Assessment and Plan //Assessment and Plan //Hypovolemic hyponatremia. Possibly symptomatic with confusion. Sodium 123 on admission. Baseline in the 130s. Na back to normal. Check magnesium. Likely secondary to dehydration. IV fluids. Monitor. = Resolved. Continue to monitor. //Encephalopathy metabolic and toxic ( hyponatremia, Tylenol toxicity, elevated ammonia). Resolving Patient also does have chronic dementia on donepezil. Lactulose , moitor Na level and ammonia level. CT head no acute findings. = Improving. Transfer to floor. //Suspected Tylenol overdose Transaminitis. Acute Patient was on Tylenol 1000 mg every 3 hours as needed for headache. 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 AST 573, ALT 1112 on admission. Bilirubin 2.0. Trending down. Tylenol level 23 on admission, trending down. Acetylcysteine as per GI. Ultrasound and hepatitis profile negative GI following. Appreciate assistance. Possible transfer to [facility] for fulminant liver failure for possible work up for liver transplant. CM consulted. Patient is not accepted to [facility] due to age. Also improving. = LFTs continue improving. Appreciate GI assistance. //Possible cholecystitis. Acute. Leukocytosis Possible Sepsis CT abdomen as above. Leukocytosis. General surgery following. No cholecystitis, GS signed off White count has trended down. Continue on Zosyn. //Hypokalemia: Resolved after placement //Anemia 2/2 acute bleeding ith duodenal ulcers: HGD dropped to 7.7, FOBT positive. Transfused 2 U PrBC, Monitor H/H . Consult GI . EGD 02/18/[address] Marie Mohamud EGD 02/18 Multiple ulcers in duodenum , superficial/duodenitis-biopsy multiple superficial ulcers in antrum/ gastrtiis -biopsy, esophagitis distal esophagus- biopsy Hiatal hernia Avoid NSAIDS = GI following. Appreciate assistance. Hemoglobin stable. //Chronic headaches. Acute on chronic exacerbation. The medication as necessary. //Atrial fibrillation. Continue on atenolol. Patient is not on full anticoagulation, however is on aspirin and Plavix due to carotid stenosis. //Carotid stenosis. On Plavix and aspirin at home //Hypertension. Chronic. Continue home medications as necessary. //Depression. Chronic. Continue home medications Discharge Planning Pending clearance by GI PT consult pending. Transfer to floor. Rio Cisse MD Feb 20, 2018 15:45
[2018-02-20 16:00] VITALS: BP 151/70; PULSE 96; RESP 24; TEMP 98.1; O2SAT 98
[2018-02-20 17:52] LABS: CERULOPLASMIN 20 mg/dL (18-53)
[2018-02-20 20:00] VITALS: BP 157/71; PULSE 82; RESP 18; TEMP 97.4; O2SAT 98
[2018-02-20] MEDS: DONEPEZIL HCL 5 MG TAB PO SCH (22:11)
[2018-02-21] VITALS: BP 136/66; PULSE 77; RESP 18; TEMP 97.7; O2SAT 97
[2018-02-21] MEDS: PANTOPRAZOLE INJ 80 MG in SODIUM CHLORIDE 0.9% INJ 100 ML IV SCH ×3 (00:31→20:12)
[2018-02-21 03:53] LABS: ENDOMYSIAL AB SCREEN ND (NEGATIVE); ENDOMYSIAL AB TITER ND (<1:5)
[2018-02-21 03:55] VITALS: BP 146/68; PULSE 96; RESP 18; TEMP 97.5; O2SAT 99
[2018-02-21 06:05] LABS: AUTOMATED NEUTROPHIL # 7.6 TH/MM3 (1.8-7.7); BASOPHIL # 0.1 TH/MM3 (0-0.2); BASOPHIL % 0.7 % (0.0-2.0); EOSINOPHIL # 0.4 TH/MM3 (0-0.4); EOSINOPHIL % 3.5 % (0.0-4.0); HEMATOCRIT 31.5 % (35.0-46.0); LYMPH % 6.5 % (9.0-44.0); LYMPHOCYTE # 0.6 TH/MM3 (1.0-4.8); MEAN CELL VOLUME 89.2 FL (80.0-100.0); MEAN CORPUSCULAR HEMOGLOBIN 31.1 PG (27.0-34.0); MEAN CORPUSCULAR HGB CONC 34.8 % (32.0-36.0); MEAN PLATELET VOLUME 7.2 FL (7.0-11.0); MONO % 12.4 % (0.0-8.0); MONOCYTE # 1.2 TH/MM3 (0-0.9); NEUT % 76.9 % (16.0-70.0); PLATELET COUNT 258 TH/MM3 (150-450); RED BLOOD COUNT 3.53 MIL/MM3 (4.00-5.30); RED CELL DISTRIBUTION WIDTH 14.6 % (11.6-17.2); WHITE BLOOD COUNT 9.9 TH/MM3 (4.0-11.0)
[2018-02-21 06:29] LABS: ALBUMIN 2.8 GM/DL (3.4-5.0); BICARBONATE 23.4 MEQ/L (21.0-32.0); CALCIUM 8.1 MG/DL (8.5-10.1); CREATININE 0.42 MG/DL (0.50-1.00); DIRECT BILIRUBIN ADULT 0.4 MG/DL (0.0-0.2); INDIRECT BILIRUBIN 0.3 MG/DL (0.0-0.8); MAGNESIUM 1.6 MG/DL (1.5-2.5); PHOSPHORUS 3.6 MG/DL (2.5-4.9); TOTAL BILIRUBIN ADULT 0.7 MG/DL (0.2-1.0); TOTAL PROTEIN 5.4 GM/DL (6.4-8.2)
[2018-02-21 08:00] VITALS: BP 153/72; PULSE 103; RESP 21; TEMP 97.4; O2SAT 97
[2018-02-21] MEDS: SODIUM CHLOR 0.9% 1000 ML INJ 1,000 ML IV SCH ×2 (08:45→22:02)
[2018-02-21] MEDS: LACTULOSE SYRUP 20 GM/30 ML CUP PO SCH ×2 (08:52→22:01)
[2018-02-21] MEDS: LISINOPRIL 20 MG TAB PO SCH (08:52)
[2018-02-21] MEDS: SERTRALINE HCL 50 MG TAB PO SCH (08:52)
[2018-02-21] MEDS: SODIUM CHLORIDE 0.9% FLUSH 10 ML FLUSH IV FLUSH SCH ×2 (08:53→22:02)
[2018-02-21] MEDS: HYDROCHLOROTHIAZIDE 25 MG TAB PO SCH (08:53)
[2018-02-21] MEDS: SUCRALFATE 1 GM/10 ML CUP PO SCH ×4 (08:58→22:01)
[2018-02-21] MEDS: TOPIRAMATE 25 MG TAB PO SCH ×2 (08:58→22:03)
[2018-02-21] MEDS: risperiDONE 0.5 MG TAB PO SCH ×2 (09:57→22:06)
[2018-02-21] MEDS: POTASSIUM CHLORIDE 20 MEQ CONTROLLED RELEASE TAB PO SCH (09:57)
--- NOTE | 2018-02-21 10:51 | HHI.GIFU ---
Subjective Remarks Sitting up in the chair has been in room with her Patient awake answering simple questions Denies any nausea or vomiting Bowel movement questionable dark colored last a.m. Current hemoglobin 11. (Jennifer Menon) Objective Vitals I&O Vital Signs Date Time Temp Pulse Resp B/P (MAP) Pulse Ox O2 Delivery O2 Flow Rate FiO2 02/21/18 08:00 97.4 103 21 153/72 (99) 97 02/21/18 03:55 97.5 96 18 146/68 (94) 99 02/21/18 00:00 97.7 77 18 136/66 (89) 97 02/20/18 22:30 Room Air 02/20/18 20:00 97.4 82 18 157/71 (99) 98 02/20/18 16:00 96 02/20/18 16:00 98.1 96 24 151/70 (97) 98 02/20/18 12:00 98.4 88 20 132/61 (84) 98 02/20/18 12:00 88 I/O 02/20/18 02/20/18 02/20/18 02/21/18 02/21/18 02/21/18 07:00 15:00 23:00 07:00 15:00 23:00 Intake Total 1740 ml 1205 ml 1188 ml Balance 1740 ml 1205 ml 1188 ml Intake Oral 240 ml 480 ml IV Total 1500 ml 1205 ml 708 ml # Voids 2 1 1 # Bowel Movements 1 1 Laboratory Laboratory Tests Test 02/21/18 04:40 White Blood Count 9.9 Red Blood Count 3.53 Hemoglobin 11.0 Hematocrit 31.5 Mean Corpuscular Volume 89.2 Mean Corpuscular Hemoglobin 31.1 Mean Corpuscular Hemoglobin Concent 34.8 Red Cell Distribution Width 14.6 Platelet Count 258 Mean Platelet Volume 7.2 Neutrophils (%) (Auto) 76.9 Lymphocytes (%) (Auto) 6.5 Monocytes (%) (Auto) 12.4 Eosinophils (%) (Auto) 3.5 Basophils (%) (Auto) 0.7 Neutrophils # (Auto) 7.6 Lymphocytes # (Auto) 0.6 Monocytes # (Auto) 1.2 Eosinophils # (Auto) 0.4 Basophils # (Auto) 0.1 CBC Comment DIFF FINAL Differential Comment Blood Urea Nitrogen 10 Creatinine 0.42 Random Glucose 118 Total Protein 5.4 Albumin 2.8 Calcium Level 8.1 Phosphorus Level 3.6 Magnesium Level 1.6 Alkaline Phosphatase 72 Aspartate Amino Transf (AST/SGOT) 18 Alanine Aminotransferase (ALT/SGPT) 696 Total Bilirubin 0.7 Direct Bilirubin 0.4 Sodium Level 138 Potassium Level 3.3 Chloride Level 104 Carbon Dioxide Level 23.4 Anion Gap 11 Estimat Glomerular Filtration Rate 144 Indirect Bilirubin 0.3 Date/Time Source Procedure Growth Status 02/17/18 11:00 Stool Stool Stool Occult Blood (ROSAS) - Final HEMOCCULT POSITIVE Complete 02/15/18 14:30 Urine Random Urine Urine Culture - Final Escherichia Coli Complete Imaging Last Impressions Abdomen/Pelvis CT 02/15/18 1223 Signed Impressions: CONCLUSION: 1. Moderately distended gallbladder with questionable trace pericholecystic fl uid. Cannot exclude acute cholecystitis in the appropriate clinical setting. Co nsider further evaluation with ultrasound exam. 2. Mild airspace consolidation in the inferior lingula and right middle lobe w hich may reflect aspiration, if so likely chronic. 3. Ancillary findings include sigmoid diverticulosis, small hiatal hernia, deg enerative spondylosis of the lumbar spine and probable leiomyomatous uterus. Head CT 02/15/18 0000 Signed Impressions: CONCLUSION: 1. No acute intracranial abnormalities. Gall Bladder Ultrasound 02/15/18 0000 Signed Impressions: CONCLUSION: 1. No acute findings. Echogenic right kidney which may indicate medical renal disease. No gallstones or biliary ductal dilatation. Physical Exam HEENT: Normocephalic; atraumatic CHEST: Even/unlabored , lung sounds clear CARDIAC: RRR ABDOMEN: Round, soft, nondistended, nontender to light palpation; bowel sounds active EXTREMITIES: No lower extremity edema. SKIN: Pale; no rash; no jaundice. RUG SETTER VELVET: Alert and oriented answer simple questions (Jennifer Menon) Assessment and Plan Plan Assessment: - Elevated LFTs T bili-2 AST-573 ALT-1112 Pt denies history of liver issues. Denies ETOH. Of note, has been taking 1000mg of Tylenol q 3hs for 2 years for headaches. Denies any other OTC medications, herbs, supplements. CT abdomen and pelvis W IV contrast --> Moderately distended gallbladder with questionable trace pericholecystic fluid. Ancillary findings include sigmoid diverticulosis, small hiatal hernia. US gallbladder --> No acute findings. Echogenic right kidney which may indicate medical renal disease. No gallstones or biliary ductal dilatation. Hepatitis panel negative (02/16) Pt lethargic today and confused, per pts at bedside she has been asking questions this morning that don't make any sense. Her LFTs has increased significantly today. Ammonia level 52. Pt on Acetylcysteine AST-4870 ALT-5405 T bili-1.5 Alk phos-[address] Allen this morning, based on liver enzymes, he does not think this gallbladder related. (02/17) Case discussed by Dr. Rhodes with experimental rocket sled mechanic from [facility], Dr. Carter, pt was denied transfer to [facility] for work up for liver transplant because of her age. Improvement in LFTs today, AST-484 ALT-2971 T bili-1.3 Alk phos-58 Pt remains confused today, oriented to person and place. Ammonia-21 Significant drop in hgb over night, per RN pt began having multiple episodes of melena over night. Pt denies nausea, vomiting, abdominal pain. Repeat PT/INR pending. Pt on daily Vit K. 02/19/2018 patient is sitting up in the bed and responds to simple questions. Status post EGD on 02/18/2018 findings include multiple ulcers in the duodenum superficial duodenitis and multiple ulcers in the gastrum with gastritis. Biopsies performed hiatal hernia Liver workup pending, patient continues with IV fluids for hydration 100 cc an hour. Patient states BM dark. Patient appears with some mild lethargy but able to answer simple questions. Currently denies any nausea or vomiting or abdominal pain. Will continue to medically manage and monitor patient's GI bleed and symptoms from her multiple ulcers. Hemochromatosis labs are pending, GABE and AMSA negative. 02/20/18 pt not voicing any concerns, answering questions appropriately. EGD as above, bx benign AMa still pending, Celiac panel and Hfe pending, LFTs still high but trending down 02/21/2018 patient continues with IV Protonix drip. Denies any current nausea or vomiting or abdominal pain. Patient states bowel movement this past a.m. possible dark colored? Has been concerned about debility and asking about physical therapy discussed with Dr. Reynoso. Labs show GABE negative, AMA pending, a S, a negative, total bilirubin 0.7, AST normalized at 18, ALT significantly decreased at 696 and trending gradually down, alkaline phosphatase normal at 72 albumin 2.8 noted mild hypokalemia potassium 3.3. Continuing to evaluate transaminitis, and causes, could be medication related since patient has been taken large amounts of Tylenol for her headaches. Plan Diet, heart healthy Avoid nephrotoxic agents and NSAIDs and Tylenol for now Antireflux regimen, PPI drip will consider transition to p.o. in a.m. as long as patient's nausea vomiting or dyspepsia symptoms are controlled Carafate liquid Okay from GI standpoint to transition to regular room We will need return EGD in 6 weeks to reevaluate Monitor labs with special attention to hemoglobin Await rest of labs Patient was seen per myself and Dr. Salazar, note was written on her behalf (Jennifer Menon) Physician Comments agree with above (Saima Salazar MD) Jennifer Menon Feb 21, 2018 10:51 Saima Salazar MD Feb 21, 2018 21:43
[2018-02-21] MEDS ORDERED: POTASSIUM CHLORIDE 20 MEQ CONTROLLED RELEASE TAB PO ONE (11:00)
[2018-02-21] MEDS: cefTRIAXone INJ 1,000 MG in SODIUM CHLORIDE 0.9% INJ 100 ML IV SCH (11:44)
[2018-02-21 12:00] VITALS: BP 150/77; PULSE 88; RESP 21; TEMP 97.3; O2SAT 98
--- NOTE | 2018-02-21 14:56 | OTSOAPIP ---
ATTEMPTED TO SEE PATIENT TWICE THIS DATE. ON FIRST ATTEMPT, PATIENT ON BED GALVIN UPON ARRIVAL, ASSISTED PATIENT WITH CLEANING, HOWEVER PATIENT THEN STATED SHE WAS NOT FINISHED AND WANTED TO BE PLACED BACK ON BED GALVIN. RETURNED LATER AND PATIENT EATING HER LUNCH. PATIENT DECLINED TO PARTICIPATE AND REQUESTED FOR THERAPIST TO COME BACK LATER ON. WILL REATTEMPT LATER IN DAY IF ABLE. INTERDISCIPLINARY COMMUNICATION: REVIEWED ELECTRONIC MEDICAL RECORD, SPOKE WITH RN Therapist: Liz Yepez, EDENR/Leatha Signature on file
--- NOTE | 2018-02-21 14:57 | HHI.PR ---
Subjective Remarks 82-year-old female history of carotid stenosis, hypertension, hyperlipidemia, chronic migraines who presents with 3 day history of constant sharp, nonradiating left upper quadrant abdominal pain, as well as a 1 day history of bilious vomiting. She denies any fevers, chills, chest pain, shortness of breath. He says that she has chronic headaches and that current headache is no different than previous headaches, however she has been taking 1000 mg of Tylenol every 3 hours. She does report poor appetite over the past week. Patient does have a history of dementia, however reports that she has been more confused over the past week. 02-21 LFTs are trending down Hopefully to home versus SNF tomorrow OR with home health [facility] WORK WITH PT AND OT AWAIT PATIENT DECISION/[employer] AUTHORIZATION ROCEPHIN FOR UTI E.COLI Objective Vitals Vital Signs Date Time Temp Pulse Resp B/P (MAP) Pulse Ox O2 Delivery O2 Flow Rate FiO2 02/21/18 12:00 97.3 88 21 150/77 (101) 98 02/21/18 08:00 97.4 103 21 153/72 (99) 97 02/21/18 03:55 97.5 96 18 146/68 (94) 99 02/21/18 00:00 97.7 77 18 136/66 (89) 97 02/20/18 22:30 Room Air 02/20/18 20:00 97.4 82 18 157/71 (99) 98 02/20/18 16:00 96 02/20/18 16:00 98.1 96 24 151/70 (97) 98 I/O 02/20/18 02/20/18 02/20/18 02/21/18 02/21/18 02/21/18 07:00 15:00 23:00 07:00 15:00 23:00 Intake Total 1740 ml 1205 ml 1188 ml Balance 1740 ml 1205 ml 1188 ml Intake Oral 240 ml 480 ml IV Total 1500 ml 1205 ml 708 ml # Voids 2 1 1 # Bowel Movements 1 1 Result Diagram: 02/21/18 0440 02/21/18 0440 Other Results Laboratory Tests Test 02/18/18 17:30 02/18/18 19:10 02/19/18 06:49 02/19/18 19:53 Phosphorus Level 1.1 MG/DL Stool C. difficile Toxin (PCR) NEGATIVE Stl C. difficile Toxin Epiderm 027 PRESUMPTIVE NEGATIVE White Blood Count 8.0 TH/MM3 Red Blood Count 3.59 MIL/MM3 Hemoglobin 11.1 GM/DL Hematocrit 31.8 % Mean Corpuscular Volume 88.6 FL Mean Corpuscular Hemoglobin 30.9 PG Mean Corpuscular Hemoglobin Concent 34.9 % Red Cell Distribution Width 14.1 % Platelet Count 217 TH/MM3 Mean Platelet Volume 7.1 FL Neutrophils (%) (Auto) 76.8 % Lymphocytes (%) (Auto) 8.8 % Monocytes (%) (Auto) 10.3 % Eosinophils (%) (Auto) 3.4 % Basophils (%) (Auto) 0.7 % Neutrophils # (Auto) 6.2 TH/MM3 Lymphocytes # (Auto) 0.7 TH/MM3 Monocytes # (Auto) 0.8 TH/MM3 Eosinophils # (Auto) 0.3 TH/MM3 Basophils # (Auto) 0.1 TH/MM3 CBC Comment DIFF FINAL Differential Comment Blood Urea Nitrogen 7 MG/DL Creatinine 0.38 MG/DL Random Glucose 119 MG/DL Total Protein 5.5 GM/DL Albumin 2.8 GM/DL Calcium Level 7.9 MG/DL Alkaline Phosphatase 60 U/L Aspartate Amino Transf (AST/SGOT) 50 U/L Alanine Aminotransferase (ALT/SGPT) 1385 U/L Total Bilirubin 1.4 MG/DL Sodium Level 140 MEQ/L Potassium Level 3.1 MEQ/L 3.1 MEQ/L Chloride Level 109 MEQ/L Carbon Dioxide Level 19.5 MEQ/L Anion Gap 12 MEQ/L Estimat Glomerular Filtration Rate 162 ML/MIN Test 02/20/18 04:15 02/21/18 04:40 White Blood Count 10.9 TH/MM3 9.9 TH/MM3 Red Blood Count 3.71 MIL/MM3 3.53 MIL/MM3 Hemoglobin 11.3 GM/DL 11.0 GM/DL Hematocrit 33.0 % 31.5 % Mean Corpuscular Volume 88.9 FL 89.2 FL Mean Corpuscular Hemoglobin 30.6 PG 31.1 PG Mean Corpuscular Hemoglobin Concent 34.4 % 34.8 % Red Cell Distribution Width 14.4 % 14.6 % Platelet Count 249 TH/MM3 258 TH/MM3 Mean Platelet Volume 7.2 FL 7.2 FL Neutrophils (%) (Auto) 76.4 % 76.9 % Lymphocytes (%) (Auto) 8.3 % 6.5 % Monocytes (%) (Auto) 11.3 % 12.4 % Eosinophils (%) (Auto) 3.4 % 3.5 % Basophils (%) (Auto) 0.6 % 0.7 % Neutrophils # (Auto) 8.3 TH/MM3 7.6 TH/MM3 Lymphocytes # (Auto) 0.9 TH/MM3 0.6 TH/MM3 Monocytes # (Auto) 1.2 TH/MM3 1.2 TH/MM3 Eosinophils # (Auto) 0.4 TH/MM3 0.4 TH/MM3 Basophils # (Auto) 0.1 TH/MM3 0.1 TH/MM3 CBC Comment DIFF FINAL DIFF FINAL Differential Comment Blood Urea Nitrogen 6 MG/DL 10 MG/DL Creatinine 0.48 MG/DL 0.42 MG/DL Random Glucose 115 MG/DL 118 MG/DL Total Protein 5.7 GM/DL 5.4 GM/DL Albumin 3.0 GM/DL 2.8 GM/DL Calcium Level 8.0 MG/DL 8.1 MG/DL Magnesium Level 1.7 MG/DL 1.6 MG/DL Alkaline Phosphatase 71 U/L 72 U/L Aspartate Amino Transf (AST/SGOT) 39 U/L 18 U/L Alanine Aminotransferase (ALT/SGPT) 1057 U/L 696 U/L Total Bilirubin 1.2 MG/DL 0.7 MG/DL Sodium Level 138 MEQ/L 138 MEQ/L Potassium Level 4.0 MEQ/L 3.3 MEQ/L Chloride Level 106 MEQ/L 104 MEQ/L Carbon Dioxide Level 21.6 MEQ/L 23.4 MEQ/L Anion Gap 10 MEQ/L 11 MEQ/L Estimat Glomerular Filtration Rate 124 ML/MIN 144 ML/MIN Phosphorus Level 3.6 MG/DL Direct Bilirubin 0.4 MG/DL Indirect Bilirubin 0.3 MG/DL Imaging Last Impressions Abdomen/Pelvis CT 02/15/18 1223 Signed Impressions: CONCLUSION: 1. Moderately distended gallbladder with questionable trace pericholecystic fl uid. Cannot exclude acute cholecystitis in the appropriate clinical setting. Co nsider further evaluation with ultrasound exam. 2. Mild airspace consolidation in the inferior lingula and right middle lobe w hich may reflect aspiration, if so likely chronic. 3. Ancillary findings include sigmoid diverticulosis, small hiatal hernia, deg enerative spondylosis of the lumbar spine and probable leiomyomatous uterus. Head CT 02/15/18 0000 Signed Impressions: CONCLUSION: 1. No acute intracranial abnormalities. Gall Bladder Ultrasound 02/15/18 0000 Signed Impressions: CONCLUSION: 1. No acute findings. Echogenic right kidney which may indicate medical renal disease. No gallstones or biliary ductal dilatation. Objective Remarks GENERAL: Awake and alert oriented 3 talkative and cooperative SKIN: Warm and dry. HEAD: Atraumatic. Normocephalic. EYES: Pupils equal and round. No scleral icterus. No injection or drainage. Extraocular muscles intact ENT: No nasal bleeding or discharge. Mucous membranes pink and moist. Tongue is midline NECK: Trachea midline. No JVD. Supple CARDIOVASCULAR: Regular rate and rhythm. S1-S2 no S3 or S4 RESPIRATORY: No accessory muscle use. Clear to auscultation. Breath sounds equal bilaterally. GASTROINTESTINAL: Abdomen soft, non-tender, nondistended. Hepatic and splenic margins not palpable. MUSCULOSKELETAL: Extremities without clubbing, cyanosis, or edema. No obvious deformities. NEUROLOGICAL: Awake and alert. No obvious cranial nerve deficits. Motor grossly within normal limits. 4 out of 5 muscle strength in the arms and legs. Normal speech. PSYCHIATRIC: INAppropriate mood and affect; insight and judgment ABnormal. Medications and IVs Current Medications Sodium Chloride (NS Flush) 2 ml UNSCH PRN IV FLUSH FLUSH AFTER USING IV ACCESS ; Start 02/15/18 at 12:30; Stop 02/15/18 at 16:13; Status DC Sodium Chloride 1,000 ml @ 999 mls/hr BOLUS ONCE IV Last administered on 02/15at 14:33; Start 02/15/18 at 13:15; Stop 02/15/18 at 14:15; Status DC Iohexol (Omnipaque 350 Inj) 80 ml STK-MED ONCE IVCONTRAST Last administered on 02/15/18at 13:40; Start 02/15/18 at 13:40; Stop 02/15/18 at 13:50; Status DC Piperacillin Sod/ Tazobactam Sod 50 ml @ 100 mls/hr ONCE ONCE IV Last administered on 02/15/18at 15:45; Start 02/15/18 at 15:15; Stop 02/15/18 at 15:44 ; Status DC Piperacillin Sod/ Tazobactam Sod 50 ml @ 100 mls/hr Q6H IV Last administered on 02/17/18at 10:00; Start 02/15/18 at 22:00; Stop 02/17/18 at 11:47; Status DC Sodium Chloride 1,000 ml @ 100 mls/hr Q10H IV Last administered on 02/21/18at 08:45; Start 02/15/18 at 16:02 Sodium Chloride (NS Flush) 2 ml UNSCH PRN IV FLUSH FLUSH AFTER USING IV ACCESS ; Start 02/15/18 at 16:15 Sodium Chloride (NS Flush) 2 ml BID IV FLUSH Last administered on 02/21/18at 08: 53; Start 02/15/18 at 21:00 Metoclopramide HCl (Reglan Inj) 5 mg Q6H PRN IV PUSH NAUSEA OR VOMITING Last administered on 02/16/18at 03:14; Start 02/15/18 at 16:15 Naloxone HCl (Narcan Inj) 0.4 mg UNSCH PRN IV PUSH SEE LABEL COMMENTS; Start at 16:15 Magnesium Hydroxide (Milk Of Magnesia Liq) 30 ml Q12H PRN PO Mild constipation ; Start 02/15/18 at 16:15 Sennosides (Senokot) 17.2 mg Q12H PRN PO Moderate constipation; Start 02/15/18 at 16:15 Bisacodyl (Dulcolax Supp) 10 mg DAILY PRN RECTAL SEVERE CONSITIPATION; Start at 16:15 Lactulose (Lactulose Liq) 30 ml DAILY PRN PO SEVERE CONSITIPATION; Start at 16:15; Stop 02/16/18 at 12:44; Status DC Enalaprilat (Vasotec Inj) 1.25 mg Q6H PRN IV PUSH SBP> OR = 180, DBP> OR = 100 Last administered on 02/17/18at 09:18; Start 02/15/18 at 16:15 Acetylcysteine 04719 mg/Dextrose 252.5 ml @ 252.5 mls/ hr ONCE ONCE IV Last administered on 02/15/18at 18:19; Start 02/15/18 at 18:00; Stop 02/15/18 at 19:02 ; Status DC Acetylcysteine 3500 mg/Dextrose 517.5 ml @ 129.375 mls/hr ONCE ONCE IV ; Start 02/15/18 at 19:00; Stop 02/15/18 at 22:59; Status DC Acetylcysteine 7000 mg/Dextrose 1,035 ml @ 64.688 mls/ hr ONCE ONCE IV Last administered on 02/15/18at 22:46; Start 02/15/18 at 23:00; Stop 02/16/18 at 14:59 ; Status DC Albuterol/ Ipratropium (Duoneb Neb) 1 ampule Q6HR NEB PRN NEB SOB/WHEEZING; Start 02/15/18 at 18:00 Lactulose (Lactulose Liq) 30 ml BID PO Last administered on 02/21/18at 08:52; Start 02/16/18 at 21:00 Amlodipine Besylate (Norvasc) 10 mg BID PO Last administered on 02/21/18at 08:52 ; Start 02/16/18 at 21:00 Donepezil HCl (Aricept) 10 mg HS PO Last administered on 02/20/18at 22:11; Start 02/16/18 at 21:00 Pravastatin Sodium (Pravachol) 20 mg DAILY PO ; Start 02/17/18 at 09:00; Stop at 09:00; Status DC Risperidone (risperDAL) 0.5 mg Q12HR PO Last administered on 02/21/18at 09:57; Start 02/16/18 at 21:00 Sertraline HCl (Zoloft) 50 mg DAILY PO Last administered on 02/21/18at 08:52; Start 02/17/18 at 09:00 Topiramate (Topamax) 50 mg BID PO Last administered on 02/21/18at 08:58; Start 02/16/18 at 21:00 Hydrochlorothiazide (Hydrodiuril) 25 mg DAILY PO Last administered on at 08:53; Start 02/16/18 at 14:30 Lisinopril (Prinivil) 20 mg DAILY PO Last administered on 02/21/18at 08:52; Start 02/17/18 at 09:00 Phytonadione (Vitamin K Inj) 10 mg DAILY SQ Last administered on 02/18/18at 08: 00; Start 02/16/18 at 18:15; Stop 02/19/18 at 08:59; Status DC Hydralazine HCl (Apresoline) 10 mg Q6HR PRN PO SBP>160, DBP>90 Last administered on 02/19/18at 05:37; Start 02/16/18 at 18:15 Potassium Chloride (KCl) 40 meq ONCE ONCE PO Last administered on 02/17/18at 11 :47; Start 02/17/18 at 10:30; Stop 02/17/18 at 10:36; Status DC Potassium Chloride (KCl) 30 meq DAILY PO Last administered on 02/20/18at 09:23; Start 02/18/18 at 09:00; Stop 02/21/18 at 08:59; Status DC Ceftriaxone Sodium 1000 mg/ Sodium Chloride 100 ml @ 200 mls/hr Q24H IV Last administered on 02/21/18at 11:44; Start 02/17/18 at 12:00 Sodium Chloride 250 ml @ 15 mls/hr ONCE ONCE IV ; Start 02/17/18 at 14:00; Stop 02/18/18 at 06:39; Status DC Potassium Chloride 100 ml @ 50 mls/hr Q2H IV Last administered on 02/17/18at 18 :58; Start 02/17/18 at 15:00; Stop 02/17/18 at 18:59; Status DC Pantoprazole Sodium 80 mg/ Sodium Chloride 100 ml @ 10 mls/hr Q10H IV Last administered on 02/21/18at 09:05; Start 02/17/18 at 16:12 Potassium Chloride (KCl) 30 meq Q2HR PO Last administered on 02/18/18at 07:58; Start 02/18/18 at 04:00; Stop 02/18/18 at 09:00; Status DC Potassium Chloride 100 ml @ 50 mls/hr ONCE ONCE IV Last administered on at 03:56; Start 02/18/18 at 04:00; Stop 02/18/18 at 05:59; Status DC Potassium Chloride 100 ml @ 50 mls/hr Q2H PRN IV For Potassium 2.8 - 3.2 mEq/L ; Start 02/18/18 at 09:45; Stop 02/20/18 at 18:26; Status DC Potassium Chloride 100 ml @ 50 mls/hr Q2H PRN IV For Potassium 2.8 - 3.2 mEq/ L Last administered on 02/20/18at 01:45; Start 02/18/18 at 09:45; Stop 02/20/18 at 18:26; Status DC Potassium Bicarb/ Potassium Chloride (K-Lyte Cl Eff) 50 meq UNSCH PRN PO For Potassium 3.3 - 3.5 mEq/L; Start 02/18/18 at 09:45; Stop 02/20/18 at 18:26; Status DC Potassium Chloride 100 ml @ 25 mls/hr UNSCH PRN IV For Potassium 3.3 - 3.5 mEq /L; Start 02/18/18 at 09:45; Stop 02/20/18 at 18:26; Status DC Potassium Chloride 100 ml @ 50 mls/hr Q2H PRN IV For Potassium 3.3 - 3.5 mEq/ L Last administered on 02/20/18at 03:47; Start 02/18/18 at 09:45; Stop 02/20/18 at 18:26; Status DC Magnesium Sulfate 4 gm/Sodium Chloride 100 ml @ 50 mls/hr UNSCH PRN IV For Magnesium 0.9 - 1.1 mg/dL; Start 02/18/18 at 09:45; Stop 02/20/18 at 18:26; Status DC Magnesium Oxide (Mag-Ox) 800 mg UNSCH PRN PO For Magnesium 1.2 - 1.6 mg/dL; Start 02/18/18 at 09:45; Stop 02/20/18 at 18:26; Status DC Magnesium Sulfate 2 gm/Sodium Chloride 100 ml @ 50 mls/hr UNSCH PRN IV For Magnesium 1.2 - 1.6 mg/dL; Start 02/18/18 at 09:45; Stop 02/20/18 at 18:26; Status DC Potassium Phosphate (K-Phos) 2,000 mg Q4H PRN PO For Phosphorus < 2.5 mg/dL Last administered on 02/18/18at 18:36; Start 02/18/18 at 09:45; Stop 02/20/18 at 18:26; Status DC Sodium Phosphate 30 mmol/Sodium Chloride 250 ml @ 42 mls/hr UNSCH PRN IV For Phosphorus < 2.5 mg/dL; Start 02/18/18 at 09:45; Stop 02/20/18 at 18:26; Status DC Potassium Phosphate (K-Phos) 2,000 mg UNSCH PRN PO/TUBE SEE LABEL COMMENTS; Start 02/18/18 at 09:45; Stop 02/20/18 at 18:26; Status DC Potassium Phosphate 30 mmol/ Sodium Chloride 260 ml @ 42 mls/hr UNSCH PRN IV SEE LABEL COMMENTS; Start 02/18/18 at 09:45; Stop 02/20/18 at 18:26; Status DC Sucralfate (Carafate Liq) 1 gm ACHS PO Last administered on 02/21/18at 11:43; Start 02/18/18 at 12:00 Miscellaneous Information ([facility] [place] [facility]) ALL NURSING DEPARTME... UNSCH PRN .XX SEE LABEL COMMENTS; Start 02/18/18 at 11:54; Stop 02/19/18 at 11: 53; Status DC Potassium Bicarbonate (Effer-K Eff) 50 meq ONCE ONCE PO Last administered on at 09:04; Start 02/19/18 at 08:45; Stop 02/19/18 at 08:48; Status DC Magnesium Oxide (Mag-Ox) 400 mg ONCE ONCE PO Last administered on 02/19/18at 09 :04; Start 02/19/18 at 08:45; Stop 02/19/18 at 08:48; Status DC Propofol (Diprivan 200 Mg/20 ml Inj) 200 mg STK-MED ONCE IV ; Start 02/18/18 at 12:00; Stop 02/19/18 at 10:33; Status DC Lidocaine HCl (Xylocaine-Mpf 1% Inj) 5 ml STK-MED ONCE OTHER ; Start 02/18/18 at 12:00; Stop 02/19/18 at 10:33; Status DC Potassium Chloride (KCl) 40 meq DAILY PO Last administered on 02/21/18at 09:57; Start 02/21/18 at 09:00 Potassium Chloride (KCl) 40 meq ONCE ONCE PO Last administered on 02/21/18at 11 :43; Start 02/21/18 at 11:00; Stop 02/21/18 at 11:01; Status DC A/P Assessment and Plan //Assessment and Plan //Hypovolemic hyponatremia. Possibly symptomatic with confusion. Sodium 123 on admission. Baseline in the 130s. Na back to normal. Check magnesium. Likely secondary to dehydration. IV fluids. Monitor. = Resolved. Continue to monitor. //Encephalopathy metabolic and toxic ( hyponatremia, Tylenol toxicity, elevated ammonia). Resolving Patient also does have chronic dementia on donepezil. Lactulose , monitor Na level and ammonia level. CT head no acute findings. = Improving. Transfer to floor. //Suspected Tylenol overdose Transaminitis. Acute Patient was on Tylenol 1000 mg every 3 hours as needed for headache. 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 AST 573, ALT 1112 on admission. Bilirubin 2.0. Trending down. Tylenol level 23 on admission, trending down. Acetylcysteine as per GI. Ultrasound and hepatitis profile negative GI following. Appreciate assistance. Possible transfer to [facility] for fulminant liver failure for possible work up for liver transplant. CM consulted. Patient is not accepted to [facility] due to age. Also improving. = LFTs continue improving. Appreciate GI assistance. //Possible cholecystitis. Acute. Leukocytosis Possible Sepsis CT abdomen as above. Leukocytosis. General surgery following. No cholecystitis, GS signed off White count has trended down. Continue on Zosyn. //Hypokalemia: Resolved after REplacement //Anemia 2/2 acute bleeding With duodenal ulcers: HGB dropped to 7.7, FOBT positive. Transfused 2 U PRBC, Monitor H/H . Consult GI . EGD 02/18/[address] Marie Mohamud EGD 02/18 Multiple ulcers in duodenum , superficial/duodenitis-biopsy multiple superficial ulcers in antrum/ gastritis -biopsy, esophagitis distal esophagus- biopsy Hiatal hernia Avoid NSAIDS = GI following. Appreciate assistance. Hemoglobin stable. //Chronic headaches. Acute on chronic exacerbation. The medication as necessary. ULTRAM NEEDED- OK WITH LIVER ISSUES //Atrial fibrillation. Continue on atenolol. Patient is not on full anticoagulation, however is on aspirin and Plavix due to carotid stenosis. //Carotid stenosis. On Plavix and aspirin at home //Hypertension. Chronic. Continue home medications as necessary. //Depression. Chronic. Continue home medications Hard of hearing chronic UTI ON ROCEPHIN Discharge Planning HOPEFULLY HOME OR SNF IN NEXT 24 HOURS Yefri Reynoso DO Feb 21, 2018 14:57
[2018-02-21 16:00] VITALS: BP 160/74; PULSE 96; RESP 18; TEMP 97.3; O2SAT 98
[2018-02-21 20:00] VITALS: BP 149/65; PULSE 92; RESP 18; TEMP 98.7; O2SAT 99
[2018-02-21] MEDS: DONEPEZIL HCL 5 MG TAB PO SCH (22:00)
[2018-02-22] VITALS: BP 149/65; PULSE 92; RESP 18; TEMP 98.7; O2SAT 99
[2018-02-22] MEDS: PANTOPRAZOLE INJ 80 MG in SODIUM CHLORIDE 0.9% INJ 100 ML IV SCH (05:42)
[2018-02-22] MEDS: SODIUM CHLOR 0.9% 1000 ML INJ 1,000 ML IV SCH (05:42)
[2018-02-22 08:00] VITALS: BP 150/66; PULSE 96; RESP 18; TEMP 98.6; O2SAT 98
[2018-02-22] MEDS: SODIUM CHLORIDE 0.9% FLUSH 10 ML FLUSH IV FLUSH SCH (09:00)
[2018-02-22] MEDS: TOPIRAMATE 25 MG TAB PO SCH (09:00)
[2018-02-22 10:00] LABS: AUTOMATED NEUTROPHIL # 5.2 TH/MM3 (1.8-7.7); BASOPHIL # 0.1 TH/MM3 (0-0.2); BASOPHIL % 0.8 % (0.0-2.0); EOSINOPHIL # 0.1 TH/MM3 (0-0.4); EOSINOPHIL % 1.6 % (0.0-4.0); HEMATOCRIT 29.8 % (35.0-46.0); HEMOGLOBIN 10.2 GM/DL (11.6-15.3); LYMPH % 7.5 % (9.0-44.0); LYMPHOCYTE # 0.5 TH/MM3 (1.0-4.8); MEAN CELL VOLUME 89.4 FL (80.0-100.0); MEAN CORPUSCULAR HEMOGLOBIN 30.5 PG (27.0-34.0); MEAN CORPUSCULAR HGB CONC 34.1 % (32.0-36.0); MEAN PLATELET VOLUME 7.4 FL (7.0-11.0); MONO % 14.8 % (0.0-8.0); NEUT % 75.3 % (16.0-70.0); PLATELET COUNT 244 TH/MM3 (150-450); RED BLOOD COUNT 3.33 MIL/MM3 (4.00-5.30); RED CELL DISTRIBUTION WIDTH 14.4 % (11.6-17.2); WHITE BLOOD COUNT 6.9 TH/MM3 (4.0-11.0)
[2018-02-22 10:05] LABS: PROTHROMBIN TIME - PATIENT 10.2 SEC (9.8-11.6)
--- NOTE | 2018-02-22 10:21 | HHI.GIFU ---
Subjective Remarks PT is resting in bed comfortably, accompanied by , not voicing any concerns (Maria Antonia Denise) Objective Vitals I&O Vital Signs Date Time Temp Pulse Resp B/P (MAP) Pulse Ox O2 Delivery O2 Flow Rate FiO2 02/22/18 00:00 98.7 92 18 149/65 (93) 99 02/21/18 20:00 98.7 92 18 149/65 (93) 99 02/21/18 19:22 Room Air 02/21/18 16:00 97.3 96 18 160/74 (102) 98 02/21/18 15:31 Room Air 2.00 02/21/18 12:00 97.3 88 21 150/77 (101) 98 I/O 02/21/18 02/21/18 02/21/18 02/22/18 02/22/18 02/22/18 07:00 15:00 23:00 07:00 15:00 23:00 Intake Total 1300 ml Balance 1300 ml IV Total 1300 ml # Voids 3 # Bowel Movements 1 Laboratory Laboratory Tests Test 02/22/18 08:46 White Blood Count 6.9 Red Blood Count 3.33 Hemoglobin 10.2 Hematocrit 29.8 Mean Corpuscular Volume 89.4 Mean Corpuscular Hemoglobin 30.5 Mean Corpuscular Hemoglobin Concent 34.1 Red Cell Distribution Width 14.4 Platelet Count 244 Mean Platelet Volume 7.4 Neutrophils (%) (Auto) 75.3 Lymphocytes (%) (Auto) 7.5 Monocytes (%) (Auto) 14.8 Eosinophils (%) (Auto) 1.6 Basophils (%) (Auto) 0.8 Neutrophils # (Auto) 5.2 Lymphocytes # (Auto) 0.5 Monocytes # (Auto) 1.0 Eosinophils # (Auto) 0.1 Basophils # (Auto) 0.1 CBC Comment DIFF FINAL Differential Comment Prothrombin Time 10.2 Prothromb Time International Ratio 1.0 Date/Time Source Procedure Growth Status 02/17/18 11:00 Stool Stool Stool Occult Blood (ROSAS) - Final HEMOCCULT POSITIVE Complete 02/15/18 14:30 Urine Random Urine Urine Culture - Final Escherichia Coli Complete Imaging Last Impressions Abdomen/Pelvis CT 02/15/18 1223 Signed Impressions: CONCLUSION: 1. Moderately distended gallbladder with questionable trace pericholecystic fl uid. Cannot exclude acute cholecystitis in the appropriate clinical setting. Co nsider further evaluation with ultrasound exam. 2. Mild airspace consolidation in the inferior lingula and right middle lobe w hich may reflect aspiration, if so likely chronic. 3. Ancillary findings include sigmoid diverticulosis, small hiatal hernia, deg enerative spondylosis of the lumbar spine and probable leiomyomatous uterus. Head CT 02/15/18 0000 Signed Impressions: CONCLUSION: 1. No acute intracranial abnormalities. Gall Bladder Ultrasound 02/15/18 0000 Signed Impressions: CONCLUSION: 1. No acute findings. Echogenic right kidney which may indicate medical renal disease. No gallstones or biliary ductal dilatation. Physical Exam HEENT: Normocephalic; atraumatic CHEST: Even/unlabored , lung sounds clear CARDIAC: RRR ABDOMEN: Round, soft, nondistended, nontender to light palpation; bowel sounds active EXTREMITIES: No lower extremity edema. SKIN: Pale; no rash; no jaundice. 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 Denies ETOH. Of note, has been taking 1000mg of Tylenol q 3hs for 2 years for headaches. Denies any other OTC medications, herbs, supplements. CT abdomen and pelvis W IV contrast --> Moderately distended gallbladder with questionable trace pericholecystic fluid. Ancillary findings include sigmoid diverticulosis, small hiatal hernia. US gallbladder --> No acute findings. Echogenic right kidney which may indicate medical renal disease. No gallstones or biliary ductal dilatation. Hepatitis panel negative (02/16) Pt lethargic today and confused, per pts at bedside she has been asking questions this morning that don't make any sense. Her LFTs has increased significantly today. Ammonia level 52. Pt on Acetylcysteine AST-4870 ALT-5405 T bili-1.5 Alk phos-[address] Allen this morning, based on liver enzymes, he does not think this gallbladder related. (02/17) Case discussed by Dr. Rhodes with funeral home attendant from [facility], Dr. Carter, pt was denied transfer to [facility] for work up for liver transplant because of her age. Improvement in LFTs today, AST-484 ALT-2971 T bili-1.3 Alk phos-58 Pt remains confused today, oriented to person and place. Ammonia-21 Significant drop in hgb over night, per RN pt began having multiple episodes of melena over night. Pt denies nausea, vomiting, abdominal pain. Repeat PT/INR pending. Pt on daily Vit K. 02/19/2018 patient is sitting up in the bed and responds to simple questions. Status post EGD on 02/18/2018 findings include multiple ulcers in the duodenum superficial duodenitis and multiple ulcers in the gastrum with gastritis. Biopsies performed hiatal hernia Liver workup pending, patient continues with IV fluids for hydration 100 cc an hour. Patient states BM dark. Patient appears with some mild lethargy but able to answer simple questions. Currently denies any nausea or vomiting or abdominal pain. Will continue to medically manage and monitor patient's GI bleed and symptoms from her multiple ulcers. Hemochromatosis labs are pending, GABE and AMSA negative. 02/20/18 pt not voicing any concerns, answering questions appropriately. EGD as above, bx benign AMa still pending, Celiac panel and Hfe pending, LFTs still high but trending down 02/21/2018 patient continues with IV Protonix drip. Denies any current nausea or vomiting or abdominal pain. Patient states bowel movement this past a.m. possible dark colored? Has been concerned about debility and asking about physical therapy discussed with Dr. Reynoso. Labs show GABE negative, AMA pending, a S, a negative, total bilirubin 0.7, AST normalized at 18, ALT significantly decreased at 696 and trending gradually down, alkaline phosphatase normal at 72 albumin 2.8 noted mild hypokalemia potassium 3.3. Continuing to evaluate transaminitis, and causes, could be medication related since patient has been taken large amounts of Tylenol for her headaches. 02/22/18 CMP today pending, hh stable, Hfe pending, AMA still pending Celiac panel negative Plan Diet, heart healthy Avoid nephrotoxic agents and NSAIDs and Tylenol for now Protonix PO Await Hfe We will need return EGD in 6 weeks to reevaluate Monitor labs with special attention to hemoglobin Await rest of labs Patient was seen per myself and Dr. Salazar, note was written on her behalf (Maria Antonia Denise) Maria Antonia Denise Feb 22, 2018 10:21 Saima Salazar MD Feb 22, 2018 21:20
[2018-02-22] MEDS: LACTULOSE SYRUP 20 GM/30 ML CUP PO SCH (10:25)
[2018-02-22] MEDS: SUCRALFATE 1 GM/10 ML CUP PO SCH ×2 (10:26→13:12)
[2018-02-22] MEDS: SERTRALINE HCL 50 MG TAB PO SCH (10:27)
[2018-02-22] MEDS: risperiDONE 0.5 MG TAB PO SCH (10:27)
[2018-02-22] MEDS: POTASSIUM CHLORIDE 20 MEQ CONTROLLED RELEASE TAB PO SCH (10:28)
[2018-02-22] MEDS: LISINOPRIL 20 MG TAB PO SCH (10:29)
[2018-02-22] MEDS: HYDROCHLOROTHIAZIDE 25 MG TAB PO SCH (10:29)
[2018-02-22 11:30] VITALS: BP 145/72; PULSE 92; RESP 18; TEMP 97.2; O2SAT 98
[2018-02-22 11:35] LABS: ALBUMIN 2.6 GM/DL (3.4-5.0); AST (GOT) 19 U/L (15-37); BICARBONATE 22.9 MEQ/L (21.0-32.0); BLOOD UREA NITROGEN 5 MG/DL (7-18); CHLORIDE 105 MEQ/L (98-107); CREATININE 0.47 MG/DL (0.50-1.00); GLOMERULAR FILTRATION RATE 127 ML/MIN (>89); GLUCOSE,RANDOM 102 MG/DL (74-106); MAGNESIUM 1.7 MG/DL (1.5-2.5); SODIUM (NA) 138 MEQ/L (136-145)
[2018-02-22 11:44] LABS: ALKALINE PHOSPHATASE 59 U/L (45-117); ALT (GPT) 465 U/L (10-53); FREE T4 1.33 NG/DL (0.76-1.46); TOTAL BILIRUBIN ADULT 0.7 MG/DL (0.2-1.0); TOTAL PROTEIN 5.3 GM/DL (6.4-8.2)
--- NOTE | 2018-02-22 12:22 | HHI.PR ---
Subjective Remarks 82-year-old female history of carotid stenosis, hypertension, hyperlipidemia, chronic migraines who presents with 3 day history of constant sharp, nonradiating left upper quadrant abdominal pain, as well as a 1 day history of bilious vomiting. She denies any fevers, chills, chest pain, shortness of breath. He says that she has chronic headaches and that current headache is no different than previous headaches, however she has been taking 1000 mg of Tylenol every 3 hours. She does report poor appetite over the past week. Patient does have a history of dementia, however reports that she has been more confused over the past week. 02-21 LFTs are trending down Hopefully to home versus SNF tomorrow OR with home health [facility] WORK WITH PT AND OT AWAIT PATIENT DECISION/[employer] AUTHORIZATION ROCEPHIN FOR UTI E.COLI 02-22 LFTS TRENDING DOWN WANTS TO GO HOME DC HOME WITH HHC PT SWITCH TO PO ANTIBIOTICS DC TO HOME Objective Vitals Vital Signs Date Time Temp Pulse Resp B/P (MAP) Pulse Ox O2 Delivery O2 Flow Rate FiO2 02/22/18 00:00 98.7 92 18 149/65 (93) 99 02/21/18 20:00 98.7 92 18 149/65 (93) 99 02/21/18 19:22 Room Air 02/21/18 16:00 97.3 96 18 160/74 (102) 98 02/21/18 15:31 Room Air 2.00 I/O 02/21/18 02/21/18 02/21/18 02/22/18 02/22/18 02/22/18 07:00 15:00 23:00 07:00 15:00 23:00 Intake Total 1300 ml Balance 1300 ml IV Total 1300 ml # Voids 3 # Bowel Movements 1 Result Diagram: 02/22/18 0846 02/22/18 0846 Other Results Laboratory Tests Test 02/19/18 19:53 02/20/18 04:15 02/21/18 04:40 02/22/18 08:46 Potassium Level 3.1 MEQ/L 4.0 MEQ/L 3.3 MEQ/L 3.4 MEQ/L White Blood Count 10.9 TH/MM3 9.9 TH/MM3 6.9 TH/MM3 Red Blood Count 3.71 MIL/MM3 3.53 MIL/MM3 3.33 MIL/MM3 Hemoglobin 11.3 GM/DL 11.0 GM/DL 10.2 GM/DL Hematocrit 33.0 % 31.5 % 29.8 % Mean Corpuscular Volume 88.9 FL 89.2 FL 89.4 FL Mean Corpuscular Hemoglobin 30.6 PG 31.1 PG 30.5 PG Mean Corpuscular Hemoglobin Concent 34.4 % 34.8 % 34.1 % Red Cell Distribution Width 14.4 % 14.6 % 14.4 % Platelet Count 249 TH/MM3 258 TH/MM3 244 TH/MM3 Mean Platelet Volume 7.2 FL 7.2 FL 7.4 FL Neutrophils (%) (Auto) 76.4 % 76.9 % 75.3 % Lymphocytes (%) (Auto) 8.3 % 6.5 % 7.5 % Monocytes (%) (Auto) 11.3 % 12.4 % 14.8 % Eosinophils (%) (Auto) 3.4 % 3.5 % 1.6 % Basophils (%) (Auto) 0.6 % 0.7 % 0.8 % Neutrophils # (Auto) 8.3 TH/MM3 7.6 TH/MM3 5.2 TH/MM3 Lymphocytes # (Auto) 0.9 TH/MM3 0.6 TH/MM3 0.5 TH/MM3 Monocytes # (Auto) 1.2 TH/MM3 1.2 TH/MM3 1.0 TH/MM3 Eosinophils # (Auto) 0.4 TH/MM3 0.4 TH/MM3 0.1 TH/MM3 Basophils # (Auto) 0.1 TH/MM3 0.1 TH/MM3 0.1 TH/MM3 CBC Comment DIFF FINAL DIFF FINAL DIFF FINAL Differential Comment Blood Urea Nitrogen 6 MG/DL 10 MG/DL 5 MG/DL Creatinine 0.48 MG/DL 0.42 MG/DL 0.47 MG/DL Random Glucose 115 MG/DL 118 MG/DL 102 MG/DL Total Protein 5.7 GM/DL 5.4 GM/DL 5.3 GM/DL Albumin 3.0 GM/DL 2.8 GM/DL 2.6 GM/DL Calcium Level 8.0 MG/DL 8.1 MG/DL 8.0 MG/DL Magnesium Level 1.7 MG/DL 1.6 MG/DL 1.7 MG/DL Alkaline Phosphatase 71 U/L 72 U/L 59 U/L Aspartate Amino Transf (AST/SGOT) 39 U/L 18 U/L 19 U/L Alanine Aminotransferase (ALT/SGPT) 1057 U/L 696 U/L 465 U/L Total Bilirubin 1.2 MG/DL 0.7 MG/DL 0.7 MG/DL Sodium Level 138 MEQ/L 138 MEQ/L 138 MEQ/L Chloride Level 106 MEQ/L 104 MEQ/L 105 MEQ/L Carbon Dioxide Level 21.6 MEQ/L 23.4 MEQ/L 22.9 MEQ/L Anion Gap 10 MEQ/L 11 MEQ/L 10 MEQ/L Estimat Glomerular Filtration Rate 124 ML/MIN 144 ML/MIN 127 ML/MIN Phosphorus Level 3.6 MG/DL 3.0 MG/DL Direct Bilirubin 0.4 MG/DL Indirect Bilirubin 0.3 MG/DL Prothrombin Time 10.2 SEC Prothromb Time International Ratio 1.0 RATIO Free Thyroxine 1.33 NG/DL Thyroid Stimulating Hormone 3rd Gen 0.599 uIU/ML Imaging Last Impressions Abdomen/Pelvis CT 02/15/18 1223 Signed Impressions: CONCLUSION: 1. Moderately distended gallbladder with questionable trace pericholecystic fl uid. Cannot exclude acute cholecystitis in the appropriate clinical setting. Co nsider further evaluation with ultrasound exam. 2. Mild airspace consolidation in the inferior lingula and right middle lobe w hich may reflect aspiration, if so likely chronic. 3. Ancillary findings include sigmoid diverticulosis, small hiatal hernia, deg enerative spondylosis of the lumbar spine and probable leiomyomatous uterus. Head CT 02/15/18 0000 Signed Impressions: CONCLUSION: 1. No acute intracranial abnormalities. Gall Bladder Ultrasound 02/15/18 0000 Signed Impressions: CONCLUSION: 1. No acute findings. Echogenic right kidney which may indicate medical renal disease. No gallstones or biliary ductal dilatation. Objective Remarks GENERAL: Awake and alert oriented 3 talkative and cooperative SKIN: Warm and dry. HEAD: Atraumatic. Normocephalic. EYES: Pupils equal and round. No scleral icterus. No injection or drainage. Extraocular muscles intact ENT: No nasal bleeding or discharge. Mucous membranes pink and moist. Tongue is midline NECK: Trachea midline. No JVD. Supple CARDIOVASCULAR: Regular rate and rhythm. S1-S2 no S3 or S4 RESPIRATORY: No accessory muscle use. Clear to auscultation. Breath sounds equal bilaterally. GASTROINTESTINAL: Abdomen soft, non-tender, nondistended. Hepatic and splenic margins not palpable. MUSCULOSKELETAL: Extremities without clubbing, cyanosis, or edema. No obvious deformities. NEUROLOGICAL: Awake and alert. No obvious cranial nerve deficits. Motor grossly within normal limits. 4 out of 5 muscle strength in the arms and legs. Normal speech. PSYCHIATRIC: INAppropriate mood and affect; insight and judgment ABnormal. Procedures NONE Medications and IVs Current Medications Sodium Chloride (NS Flush) 2 ml UNSCH PRN IV FLUSH FLUSH AFTER USING IV ACCESS ; Start 02/15/18 at 12:30; Stop 02/15/18 at 16:13; Status DC Sodium Chloride 1,000 ml @ 999 mls/hr BOLUS ONCE IV Last administered on 02/15at 14:33; Start 02/15/18 at 13:15; Stop 02/15/18 at 14:15; Status DC Iohexol (Omnipaque 350 Inj) 80 ml STK-MED ONCE IVCONTRAST Last administered on 02/15/18at 13:40; Start 02/15/18 at 13:40; Stop 02/15/18 at 13:50; Status DC Piperacillin Sod/ Tazobactam Sod 50 ml @ 100 mls/hr ONCE ONCE IV Last administered on 02/15/18at 15:45; Start 02/15/18 at 15:15; Stop 02/15/18 at 15:44 ; Status DC Piperacillin Sod/ Tazobactam Sod 50 ml @ 100 mls/hr Q6H IV Last administered on 02/17/18at 10:00; Start 02/15/18 at 22:00; Stop 02/17/18 at 11:47; Status DC Sodium Chloride 1,000 ml @ 100 mls/hr Q10H IV Last administered on 02/22/18at 05:42; Start 02/15/18 at 16:02 Sodium Chloride (NS Flush) 2 ml UNSCH PRN IV FLUSH FLUSH AFTER USING IV ACCESS ; Start 02/15/18 at 16:15 Sodium Chloride (NS Flush) 2 ml BID IV FLUSH Last administered on 02/21/18at 22: 02; Start 02/15/18 at 21:00 Metoclopramide HCl (Reglan Inj) 5 mg Q6H PRN IV PUSH NAUSEA OR VOMITING Last administered on 02/16/18at 03:14; Start 02/15/18 at 16:15 Naloxone HCl (Narcan Inj) 0.4 mg UNSCH PRN IV PUSH SEE LABEL COMMENTS; Start at 16:15 Magnesium Hydroxide (Milk Of Magnesia Liq) 30 ml Q12H PRN PO Mild constipation ; Start 02/15/18 at 16:15 Sennosides (Senokot) 17.2 mg Q12H PRN PO Moderate constipation; Start 02/15/18 at 16:15 Bisacodyl (Dulcolax Supp) 10 mg DAILY PRN RECTAL SEVERE CONSITIPATION; Start at 16:15 Lactulose (Lactulose Liq) 30 ml DAILY PRN PO SEVERE CONSITIPATION; Start at 16:15; Stop 02/16/18 at 12:44; Status DC Enalaprilat (Vasotec Inj) 1.25 mg Q6H PRN IV PUSH SBP> OR = 180, DBP> OR = 100 Last administered on 02/17/18at 09:18; Start 02/15/18 at 16:15 Acetylcysteine 06032 mg/Dextrose 252.5 ml @ 252.5 mls/ hr ONCE ONCE IV Last administered on 02/15/18at 18:19; Start 02/15/18 at 18:00; Stop 02/15/18 at 19:02 ; Status DC Acetylcysteine 3500 mg/Dextrose 517.5 ml @ 129.375 mls/hr ONCE ONCE IV ; Start 02/15/18 at 19:00; Stop 02/15/18 at 22:59; Status DC Acetylcysteine 7000 mg/Dextrose 1,035 ml @ 64.688 mls/ hr ONCE ONCE IV Last administered on 02/15/18at 22:46; Start 02/15/18 at 23:00; Stop 02/16/18 at 14:59 ; Status DC Albuterol/ Ipratropium (Duoneb Neb) 1 ampule Q6HR NEB PRN NEB SOB/WHEEZING; Start 02/15/18 at 18:00 Lactulose (Lactulose Liq) 30 ml BID PO Last administered on 02/22/18at 10:25; Start 02/16/18 at 21:00 Amlodipine Besylate (Norvasc) 10 mg BID PO Last administered on 02/22/18 10:28 ; Start 02/16/18 at 21:00 Donepezil HCl (Aricept) 10 mg HS PO Last administered on 02/21/18at 22:00; Start 02/16/18 at 21:00 Pravastatin Sodium (Pravachol) 20 mg DAILY PO ; Start 02/17/18 at 09:00; Stop at 09:00; Status DC Risperidone (risperDAL) 0.5 mg Q12HR PO Last administered on 02/22/18 10:27; Start 02/16/18 at 21:00 Sertraline HCl (Zoloft) 50 mg DAILY PO Last administered on 02/22/18 10:27; Start 02/17/18 at 09:00 Topiramate (Topamax) 50 mg BID PO Last administered on 02/22/18 09:00; Start 02/16/18 at 21:00 Hydrochlorothiazide (Hydrodiuril) 25 mg DAILY PO Last administered on 10:29; Start 02/16/18 at 14:30 Lisinopril (Prinivil) 20 mg DAILY PO Last administered on 02/22/18 10:29; Start 02/17/18 at 09:00 Phytonadione (Vitamin K Inj) 10 mg DAILY SQ Last administered on 02/18/18at 08: 00; Start 02/16/18 at 18:15; Stop 02/19/18 at 08:59; Status DC Hydralazine HCl (Apresoline) 10 mg Q6HR PRN PO SBP>160, DBP>90 Last administered on 02/19/18at 05:37; Start 02/16/18 at 18:15 Potassium Chloride (KCl) 40 meq ONCE ONCE PO Last administered on 02/17/18at 11 :47; Start 02/17/18 at 10:30; Stop 02/17/18 at 10:36; Status DC Potassium Chloride (KCl) 30 meq DAILY PO Last administered on 02/20/18at 09:23; Start 02/18/18 at 09:00; Stop 02/21/18 at 08:59; Status DC Ceftriaxone Sodium 1000 mg/ Sodium Chloride 100 ml @ 200 mls/hr Q24H IV Last administered on 02/21/18at 11:44; Start 02/17/18 at 12:00 Sodium Chloride 250 ml @ 15 mls/hr ONCE ONCE IV ; Start 02/17/18 at 14:00; Stop 02/18/18 at 06:39; Status DC Potassium Chloride 100 ml @ 50 mls/hr Q2H IV Last administered on 02/17/18at 18 :58; Start 02/17/18 at 15:00; Stop 02/17/18 at 18:59; Status DC Pantoprazole Sodium 80 mg/ Sodium Chloride 100 ml @ 10 mls/hr Q10H IV Last administered on 02/22/18at 05:42; Start 02/17/18 at 16:12; Stop 02/22/18 at 10:24 ; Status DC Potassium Chloride (KCl) 30 meq Q2HR PO Last administered on 02/18/18at 07:58; Start 02/18/18 at 04:00; Stop 02/18/18 at 09:00; Status DC Potassium Chloride 100 ml @ 50 mls/hr ONCE ONCE IV Last administered on at 03:56; Start 02/18/18 at 04:00; Stop 02/18/18 at 05:59; Status DC Potassium Chloride 100 ml @ 50 mls/hr Q2H PRN IV For Potassium 2.8 - 3.2 mEq/L ; Start 02/18/18 at 09:45; Stop 02/20/18 at 18:26; Status DC Potassium Chloride 100 ml @ 50 mls/hr Q2H PRN IV For Potassium 2.8 - 3.2 mEq/ L Last administered on 02/20/18at 01:45; Start 02/18/18 at 09:45; Stop 02/20/18 at 18:26; Status DC Potassium Bicarb/ Potassium Chloride (K-Lyte Cl Eff) 50 meq UNSCH PRN PO For Potassium 3.3 - 3.5 mEq/L; Start 02/18/18 at 09:45; Stop 02/20/18 at 18:26; Status DC Potassium Chloride 100 ml @ 25 mls/hr UNSCH PRN IV For Potassium 3.3 - 3.5 mEq /L; Start 02/18/18 at 09:45; Stop 02/20/18 at 18:26; Status DC Potassium Chloride 100 ml @ 50 mls/hr Q2H PRN IV For Potassium 3.3 - 3.5 mEq/ L Last administered on 02/20/18at 03:47; Start 02/18/18 at 09:45; Stop 02/20/18 at 18:26; Status DC Magnesium Sulfate 4 gm/Sodium Chloride 100 ml @ 50 mls/hr UNSCH PRN IV For Magnesium 0.9 - 1.1 mg/dL; Start 02/18/18 at 09:45; Stop 02/20/18 at 18:26; Status DC Magnesium Oxide (Mag-Ox) 800 mg UNSCH PRN PO For Magnesium 1.2 - 1.6 mg/dL; Start 02/18/18 at 09:45; Stop 02/20/18 at 18:26; Status DC Magnesium Sulfate 2 gm/Sodium Chloride 100 ml @ 50 mls/hr UNSCH PRN IV For Magnesium 1.2 - 1.6 mg/dL; Start 02/18/18 at 09:45; Stop 02/20/18 at 18:26; Status DC Potassium Phosphate (K-Phos) 2,000 mg Q4H PRN PO For Phosphorus < 2.5 mg/dL Last administered on 02/18/18at 18:36; Start 02/18/18 at 09:45; Stop 02/20/18 at 18:26; Status DC Sodium Phosphate 30 mmol/Sodium Chloride 250 ml @ 42 mls/hr UNSCH PRN IV For Phosphorus < 2.5 mg/dL; Start 02/18/18 at 09:45; Stop 02/20/18 at 18:26; Status DC Potassium Phosphate (K-Phos) 2,000 mg UNSCH PRN PO/TUBE SEE LABEL COMMENTS; Start 02/18/18 at 09:45; Stop 02/20/18 at 18:26; Status DC Potassium Phosphate 30 mmol/ Sodium Chloride 260 ml @ 42 mls/hr UNSCH PRN IV SEE LABEL COMMENTS; Start 02/18/18 at 09:45; Stop 02/20/18 at 18:26; Status DC Sucralfate (Carafate Liq) 1 gm ACHS PO Last administered on 02/22/18at 10:26; Start 02/18/18 at 12:00 Miscellaneous Information ([facility] [place] Nursing Information) ALL NURSING DEPARTME... UNSCH PRN .XX SEE LABEL COMMENTS; Start 02/18/18 at 11:54; Stop 02/19/18 at 11: 53; Status DC Potassium Bicarbonate (Effer-K Eff) 50 meq ONCE ONCE PO Last administered on at 09:04; Start 02/19/18 at 08:45; Stop 02/19/18 at 08:48; Status DC Magnesium Oxide (Mag-Ox) 400 mg ONCE ONCE PO Last administered on 02/19/18at 09 :04; Start 02/19/18 at 08:45; Stop 02/19/18 at 08:48; Status DC Propofol (Diprivan 200 Mg/20 ml Inj) 200 mg STK-MED ONCE IV ; Start 02/18/18 at 12:00; Stop 02/19/18 at 10:33; Status DC Lidocaine HCl (Xylocaine-Mpf 1% Inj) 5 ml STK-MED ONCE OTHER ; Start 02/18/18 at 12:00; Stop 02/19/18 at 10:33; Status DC Potassium Chloride (KCl) 40 meq DAILY PO Last administered on 02/22/18at 10:28; Start 02/21/18 at 09:00 Potassium Chloride (KCl) 40 meq ONCE ONCE PO Last administered on 02/21/18at 11 :43; Start 02/21/18 at 11:00; Stop 02/21/18 at 11:01; Status DC Pantoprazole Sodium (Protonix) 40 mg Q12HR PO ; Start 02/22/18 at 21:00 A/P Assessment and Plan //Assessment and Plan //Hypovolemic hyponatremia. Possibly symptomatic with confusion. Sodium 123 on admission. Baseline in the 130s. Na back to normal. Check magnesium. Likely secondary to dehydration. IV fluids. Monitor. = Resolved. Continue to monitor. //Encephalopathy metabolic and toxic ( hyponatremia, Tylenol toxicity, elevated ammonia). Resolving Patient also does have chronic dementia on donepezil. Lactulose , monitor Na level and ammonia level. CT head no acute findings. = Improving. Transfer to floor. //Suspected Tylenol overdose Transaminitis. Acute Patient was on Tylenol 1000 mg every 3 hours as needed for headache. As patient has had a headache over the past week [employer] she has been taking Tylenol. AST 573, ALT 1112 on admission. Bilirubin 2.0. Trending down. Tylenol level 23 on admission, trending down. Acetylcysteine as per GI. Ultrasound and hepatitis profile negative GI following. Appreciate assistance. Possible transfer to [facility] for fulminant liver failure for possible work up for liver transplant. CM consulted. Patient is not accepted to [facility] due to age. Also improving. = LFTs continue improving. Appreciate GI assistance. //Possible cholecystitis. Acute. Leukocytosis Possible Sepsis CT abdomen as above. Leukocytosis. General surgery following. No cholecystitis, GS signed off White count has trended down. Continue on Zosyn. //Hypokalemia: Resolved after REplacement //Anemia 2/2 acute bleeding With duodenal ulcers: HGB dropped to 7.7, FOBT positive. Transfused 2 U PRBC, Monitor H/H . Consult GI . EGD 02/18/[address] Marie Mohamud EGD 02/18 Multiple ulcers in duodenum , superficial/duodenitis-biopsy multiple superficial ulcers in antrum/ gastritis -biopsy, esophagitis distal esophagus- biopsy Hiatal hernia Avoid NSAIDS = GI following. Appreciate assistance. Hemoglobin stable. //Chronic headaches. Acute on chronic exacerbation. The medication as necessary. ULTRAM NEEDED- OK WITH LIVER ISSUES //Atrial fibrillation. Continue on atenolol. Patient is not on full anticoagulation, however is on aspirin and Plavix due to carotid stenosis. //Carotid stenosis. On Plavix and aspirin at home //Hypertension. Chronic. Continue home medications as necessary. //Depression. Chronic. Continue home medications Hard of hearing chronic UTI ON ROCEPHIN SWITCH TO PO CEFTIN DC TO HOME WITH [facility] TODAY Discharge Planning HOPEFULLY HOME WITH [facility] TODAY Yefri Reynoso DO Feb 22, 2018 12:22
[2018-02-22] MEDS: cefTRIAXone INJ 1,000 MG in SODIUM CHLORIDE 0.9% INJ 100 ML IV SCH (13:12)
[2018-02-22] MEDS ORDERED: ZOLO50TA PO (13:41)
[2018-02-22] MEDS ORDERED: RISP0.5T25 PO (13:41)
[2018-02-22] MEDS ORDERED: LOVA20TA PO (13:41)
[2018-02-22] MEDS ORDERED: ASPI-183 PO (13:41)
[2018-02-22] MEDS ORDERED: TOPA50TA7 PO (13:41)
[2018-02-22] MEDS ORDERED: CEFU1TAB18 PO (13:41)
[2018-02-22] MEDS ORDERED: POTA20TA5 PO (13:41)
[2018-02-22] MEDS ORDERED: DONE10TA7 PO (13:41)
[2018-02-22] MEDS ORDERED: AMLO10TA2 PO (13:41)
[2018-02-22] MEDS ORDERED: SUCR1S PO (13:41)
[2018-02-22] MEDS ORDERED: LISI20TA3 PO (13:41)
--- NOTE | 2018-02-22 13:46 | HHI.DS ---
Discharge Summary Admission Date Feb 15, 2018 at 16:03 Discharge Date: Feb 22, 2018 Admitting Diagnosis hyponatremia, UTI, cholecystitis (1) Tylenol toxicity ICD Code: T39.1X1A - Poisoning by 4-Aminophenol derivatives, accidental ( unintentional), initial encounter (2) Hyponatremia ICD Code: E87.1 - Hypo-osmolality and hyponatremia Diagnosis: Principal Status: Acute (3) Urinary tract infection ICD Code: N39.0 - Urinary tract infection, site not specified Diagnosis: Principal Status: Acute (4) Abdominal pain ICD Code: R10.9 - Unspecified abdominal pain Diagnosis: Principal Status: Acute Procedures NONE Brief History - From Admission 82-year-old female history of carotid stenosis, hypertension, hyperlipidemia, chronic migraines who presents with 3 day history of constant sharp, nonradiating left upper quadrant abdominal pain, as well as a 1 day history of bilious vomiting. She denies any fevers, chills, chest pain, shortness of breath. He says that she has chronic headaches and that current headache is no different than previous headaches, however she has been taking 1000 mg of Tylenol every 3 hours. She does report poor appetite over the past week. Patient does have a history of dementia, however reports that she has been more confused over the past week. CBC/BMP: 02/22/18 0846 02/22/18 0846 Significant Findings Laboratory Tests Test 02/19/18 19:53 02/20/18 04:15 02/21/18 04:40 02/22/18 08:46 Potassium Level 3.1 MEQ/L (3.5-5.1) 3.3 MEQ/L (3.5-5.1) 3.4 MEQ/L (3.5-5.1) Red Blood Count 3.71 MIL/MM3 (4.00-5.30) 3.53 MIL/MM3 (4.00-5.30) 3.33 MIL/MM3 (4.00-5.30) Hemoglobin 11.3 GM/DL (11.6-15.3) 11.0 GM/DL (11.6-15.3) 10.2 GM/DL (11.6-15.3) Hematocrit 33.0 % (35.0-46.0) 31.5 % (35.0-46.0) 29.8 % (35.0-46.0) Neutrophils (%) (Auto) 76.4 % (16.0-70.0) 76.9 % (16.0-70.0) 75.3 % (16.0-70.0) Lymphocytes (%) (Auto) 8.3 % (9.0-44.0) 6.5 % (9.0-44.0) 7.5 % (9.0-44.0) Monocytes (%) (Auto) 11.3 % (0.0-8.0) 12.4 % (0.0-8.0) 14.8 % (0.0-8.0) Neutrophils # (Auto) 8.3 TH/MM3 (1.8-7.7) Lymphocytes # (Auto) 0.9 TH/MM3 (1.0-4.8) 0.6 TH/MM3 (1.0-4.8) 0.5 TH/MM3 (1.0-4.8) Monocytes # (Auto) 1.2 TH/MM3 (0-0.9) 1.2 TH/MM3 (0-0.9) 1.0 TH/MM3 (0-0.9) Blood Urea Nitrogen 6 MG/DL (7-18) 5 MG/DL (7-18) Creatinine 0.48 MG/DL (0.50-1.00) 0.42 MG/DL (0.50-1.00) 0.47 MG/DL (0.50-1.00) Random Glucose 115 MG/DL (74-106) 118 MG/DL (74-106) Total Protein 5.7 GM/DL (6.4-8.2) 5.4 GM/DL (6.4-8.2) 5.3 GM/DL (6.4-8.2) Albumin 3.0 GM/DL (3.4-5.0) 2.8 GM/DL (3.4-5.0) 2.6 GM/DL (3.4-5.0) Calcium Level 8.0 MG/DL (8.5-10.1) 8.1 MG/DL (8.5-10.1) 8.0 MG/DL (8.5-10.1) Aspartate Amino Transf (AST/SGOT) 39 U/L (15-37) Alanine Aminotransferase (ALT/SGPT) 1057 U/L (10-53) 696 U/L (10-53) 465 U/L (10-53) Total Bilirubin 1.2 MG/DL (0.2-1.0) Direct Bilirubin 0.4 MG/DL (0.0-0.2) Imaging Last Impressions Abdomen/Pelvis CT 02/15/18 1223 Signed Impressions: CONCLUSION: 1. Moderately distended gallbladder with questionable trace pericholecystic fl uid. Cannot exclude acute cholecystitis in the appropriate clinical setting. Co nsider further evaluation with ultrasound exam. 2. Mild airspace consolidation in the inferior lingula and right middle lobe w hich may reflect aspiration, if so likely chronic. 3. Ancillary findings include sigmoid diverticulosis, small hiatal hernia, deg enerative spondylosis of the lumbar spine and probable leiomyomatous uterus. Head CT 02/15/18 0000 Signed Impressions: CONCLUSION: 1. No acute intracranial abnormalities. Gall Bladder Ultrasound 02/15/18 0000 Signed Impressions: CONCLUSION: 1. No acute findings. Echogenic right kidney which may indicate medical renal disease. No gallstones or biliary ductal dilatation. PE at Discharge GENERAL: Awake and alert oriented 3 talkative and cooperative SKIN: Warm and dry. HEAD: Atraumatic. Normocephalic. EYES: Pupils equal and round. No scleral icterus. No injection or drainage. Extraocular muscles intact ENT: No nasal bleeding or discharge. Mucous membranes pink and moist. Tongue is midline NECK: Trachea midline. No JVD. Supple CARDIOVASCULAR: Regular rate and rhythm. S1-S2 no S3 or S4 RESPIRATORY: No accessory muscle use. Clear to auscultation. Breath sounds equal bilaterally. GASTROINTESTINAL: Abdomen soft, non-tender, nondistended. Hepatic and splenic margins not palpable. MUSCULOSKELETAL: Extremities without clubbing, cyanosis, or edema. No obvious deformities. NEUROLOGICAL: Awake and alert. No obvious cranial nerve deficits. Motor grossly within normal limits. 4 out of 5 muscle strength in the arms and legs. Normal speech. PSYCHIATRIC: INAppropriate mood and affect; insight and judgment ABnormal. Hospital Course 82-year-old female history of carotid stenosis, hypertension, hyperlipidemia, chronic migraines who presents with 3 day history of constant sharp, nonradiating left upper quadrant abdominal pain, as well as a 1 day history of bilious vomiting. She denies any fevers, chills, chest pain, shortness of breath. He says that she has chronic headaches and that current headache is no different than previous headaches, however she has been taking 1000 mg of Tylenol every 3 hours. She does report poor appetite over the past week. Patient does have a history of dementia, however reports that she has been more confused over the past week. 6-24 LFTs are trending down Hopefully to home versus SNF tomorrow OR with home health AM LABS WORK WITH PT AND OT AWAIT PATIENT DECISION/[employer] AUTHORIZATION ROCEPHIN FOR UTI E.COLI 6-25 LFTS TRENDING DOWN WANTS TO GO HOME DC HOME WITH C PT SWITCH TO PO ANTIBIOTICS DC TO HOME Pt Condition on Discharge: Good Discharge Disposition: Disch w/ Home Health Serv Discharge Time: > 30 minutes Discharge Instructions DIET: Follow Instructions for: Heart Healthy Diet, Diabetic Diet Speech Therapy-Diet Recommends: Regular Activities you can perform: Regular-No Restrictions, Weight Bearing as Robbie Follow up Referrals: Gastroenterology - 2 Weeks with Saima Salazar MD PCP Follow-up - 3-5 Days with Anam Klein DO New Medications: Cefuroxime (Ceftin) 250 Mg Tab 250 MG PO BID for Infection, #14 TAB Potassium Chloride Microencaps (Potassium Chloride Microencaps) 20 Meq Tab 40 MEQ PO DAILY for Nutritional Supplement, #60 TAB Sucralfate Liq (Sucralfate Liq) 1 Gram/10 Ml Andie 1 GM PO ACHS for Manage Heartburn, #120 GM Continued Medications: Amlodipine (Amlodipine) 10 Mg Tab 10 MG PO BID for Blood Pressure Management, #60 TAB 0 Refills (This prescription has been renewed) Aspirin (Aspirin) 325 Mg Tab 325 MG PO DAILY for Blood Clot Prevention, #30 TAB 0 Refills (This prescription has been renewed) Donepezil (Donepezil) 10 Mg Tab 10 MG PO HS for Dementia, #30 TAB 0 Refills (This prescription has been renewed) Lisinopril-Hctz (Lisinopril-Hctz) 20-25 Mg Tab 1 TAB PO DAILY for Blood Pressure Management, #30 TAB 0 Refills (This prescription has been renewed) Lovastatin (Lovastatin) 20 Mg Tab 20 MG PO DAILY for Cholesterol Management, #30 TAB 0 Refills (This prescription has been renewed) Risperidone (Risperdal) 0.5 Mg Tab 0.5 MG PO Q12HR for Anxiety, #60 TAB 0 Refills (This prescription has been renewed) Sertraline (Zoloft) 50 Mg Tab 50 MG PO DAILY for Anxiety, #30 TAB 0 Refills (This prescription has been renewed) Topiramate (Topamax) 50 Mg Tab 50 MG PO BID for Control Seizures, #60 TAB 0 Refills (This prescription has been renewed) Discontinued Medications: [headache pill] () PO DAILY [htn pill] () PO DAILY Yefri Reyonso DO Feb 22, 2018 13:46
--- NOTE | 2018-02-22 14:15 | HHI.FF ---
Face to Face Verification Diagnosis: (1) Tylenol toxicity (2) Abdominal pain (3) Hyponatremia (4) Urinary tract infection Physical Therapy Order: Evaluate and Treat, Improve ambulation, Strength and gait training Occupational Therapy Order: Evaluate and Treat, Gross motor coordination, Fine motor coordination Home Health Nursing Order: Medical education Signs/symptoms of disease process Nursing assessment with vital signs Home Health Aide Order: To Assist In: Bathing and personal care, service station cashier and meal prep I have seen patient Nichol Ferreira on 02/22/18. My clinical findings support the need for the requested home health care services because: Ltd mobility - disease progression Med compliance is questionable Limited ability to care for self Impaired cognition/judgement I certify that my clinical findings support that this patient is homebound because: Impaired cognitive ability/safety Unsteady gait/balance Need for psychosocial assistance Yefri Reynoso DO Feb 22, 2018 14:15
[2018-02-22] MEDS ORDERED: Lactulose Liq PO (14:57)
[2018-02-22 16:00] VITALS: BP 146/66; PULSE 78; RESP 18; TEMP 97.2; O2SAT 99
[2018-02-22 16:44] LABS: HEMOGLOBIN A1C 5.1 % (4.3-6.0)
[2018-02-22] MEDS ORDERED: PANTOPRAZOLE SOD 40 MG DELAYED RELEASE TAB PO SCH (21:00)
[2018-02-23 12:49] LABS: HEREDITARY HEMOCHROM SPECIMEN WB Whole Blood
[2018-02-24 11:52] LABS: MITOCHONDRIAL ABS LESS THAN 20.0 U (<=20.0)
== END 2018-02-22 18:18 | disposition home health service (06) | DRG 917 ==
LOC: NEPC 11:49 → NEDA 16:03 → N04A 20:01 → HIMW 02-17 16:40 → N06A 02-20 17:28
PROVIDERS: ADMIT Family Medicine; ATTEND Family Medicine
PROC: 0DB78ZX Excision of Stomach, Pylorus, Via Natural or Artificial Opening Endoscopic, Diagnostic (ICD-10-PCS; 2018-02-18)
PROC: 0DB38ZX Excision of Lower Esophagus, Via Natural or Artificial Opening Endoscopic, Diagnostic (ICD-10-PCS; 2018-02-18)
PROC: 0DB98ZX Excision of Duodenum, Via Natural or Artificial Opening Endoscopic, Diagnostic (ICD-10-PCS; principal; 2018-02-18 11:33)
DX: T39.1X1A Poisoning by 4-Aminophenol derivatives, accidental (unintentional), initial encounter (principal); G92 Toxic encephalopathy; K26.9 Duodenal ulcer, unspecified as acute or chronic, without hemorrhage or perforation; K25.9 Gastric ulcer, unspecified as acute or chronic, without hemorrhage or perforation; E87.1 Hypo-osmolality and hyponatremia; I48.91 Unspecified atrial fibrillation; F03.90 Unspecified dementia, unspecified severity, without behavioral disturbance, psychotic disturbance, mood disturbance, and anxiety; E86.0 Dehydration; D62 Acute posthemorrhagic anemia; N39.0 Urinary tract infection, site not specified; I10 Essential (primary) hypertension; K92.1 Melena; E78.5 Hyperlipidemia, unspecified; G43.909 Migraine, unspecified, not intractable, without status migrainosus; B96.20 Unspecified Escherichia coli [E. coli] as the cause of diseases classified elsewhere; D25.9 Leiomyoma of uterus, unspecified; K29.70 Gastritis, unspecified, without bleeding; K29.80 Duodenitis without bleeding; K20.9 Esophagitis, unspecified; E87.6 Hypokalemia; F32.9 Major depressive disorder, single episode, unspecified; K72.90 Hepatic failure, unspecified without coma; R74.0 Nonspecific elevation of levels of transaminase and lactic acid dehydrogenase [LDH]; H91.90 Unspecified hearing loss, unspecified ear; I65.29 Occlusion and stenosis of unspecified carotid artery; K44.9 Diaphragmatic hernia without obstruction or gangrene; K57.30 Diverticulosis of large intestine without perforation or abscess without bleeding; K82.8 Other specified diseases of gallbladder; M47.816 Spondylosis without myelopathy or radiculopathy, lumbar region; Z79.02 Long term (current) use of antithrombotics/antiplatelets; Z79.82 Long term (current) use of aspirin; Z90.49 Acquired absence of other specified parts of digestive tract; Z88.2 Allergy status to sulfonamides
CPT/HCPCS: 36430; 70450; 74177; 76705; 80048; 80053; 80069; 80074; 80076; 80307; 81001; 81256; 82103; 82140; 82272; 82390; 82728; 82784; 83036; 83516; 83520; 83540; 83550; 83690; 83735; 84100; 84132; 84439; 84443; 85025; 85610; 86038; 86255; 86850; 86900; 86901; 86920; 87077; 87086; 87186; 87493; 88305; 88312; 93005; 94002; 96361; 96365; C9113; J0132; J0696; J2543; J2765; J3430; J3480; J7030; J7060; J7070; P9016; Q9967

== ENCOUNTER 2018-08-05 00:24 | Observation (INO) ==
[2018-08-05] MEDS ORDERED: Sod Chloride 0.9% Inj 1,000 ML IV.CONT SCH (00:45)
--- NOTE | 2018-08-05 00:46 | ED ---
HPI General Chief complaint: Nausea/Vomiting/Diarrhea Stated complaint: Medical/Fall Time Seen by Provider: 08/05/18 00:38 Source: patient and family Mode of arrival: wheelchair Limitations: other (Dementia) History of Present Illness HPI narrative: 82-year-old female with history of dementia, hypertension, hyperlipidemia, brought in by her for evaluation of nausea, vomiting, diarrhea, headache, and abdominal pain. The patient tells me that she fell out of bed tonight and struck her head, and her symptoms started after this incident. She does not believe she passed out. She complains of left frontal head pain, but is unable to describe the pain. Patient's reports that she has had several episodes of vomiting and diarrhea since yesterday morning. He believes that there may have been blood in her bowel movements. She has been complaining of intermittent abdominal pain as well. The rest of the patient's history is limited secondary to the patient's dementia, however she is denying pain anywhere else other than her left head/forehead. Chart review was reviewed and shows that the patient was here in January of this year and had significantly elevated LFTs after taking significant doses of Tylenol for headache. She also had an EGD done during that visit that showed several duodenal ulcers as well as gastritis. The reports that she has not taken any Tylenol since, and she has not taken anything for her symptoms today. Related Data Home Medications Medication Instructions Recorded Confirmed Unable to Obtain Home Meds 08/05/18 08/05/18 Allergies Allergy/AdvReac Type Severity Reaction Status Date / Time Sulfa (Sulfonamide Allergy Severe Swelling Verified 08/05/18 00:28 Antibiotics) Review of Systems ROS: all other systems reviewed are negative FOR[facility]LY [facility], [facility] Medical History Medical History Dementia (Acute) High blood pressure (Acute) Liver hemorrhage (Acute) Social History Social History Smoking Status: Never smoker How Often Do You Have a Drink Containing Alcohol: Never Recent Travel in [facility] within the Last 8 Weeks: No Recent Out of Country Travel within the Last 8 Weeks: No Exam Narrative Exam Narrative: GENERAL: Well-developed, thin, elderly appearing female, awake, alert, no apparent distress. SKIN: Focused skin assessment warm/dry. HEAD: Atraumatic. Normocephalic. EYES: Pupils equal and round. No scleral icterus. No injection or drainage. ENT: No nasal bleeding or discharge. Mucous membranes pink and dry. NECK: Trachea midline. No JVD. CARDIOVASCULAR: Regular rate and rhythm. RESPIRATORY: No accessory muscle use. Clear to auscultation. Breath sounds equal bilaterally. GASTROINTESTINAL: Abdomen soft, non-tender, nondistended. MUSCULOSKELETAL: No obvious deformities. No clubbing. No cyanosis. No edema. NEUROLOGICAL: Awake and alert. No obvious cranial nerve deficits. Motor grossly within normal limits. Normal speech. PSYCHIATRIC: Appropriate mood and affect; insight and judgment normal. Course Initial Documented Vital Signs Temperature 97.5 F L 08/05/18 00:25 Pulse Rate 63 08/05/18 00:25 Respiratory Rate 20 08/05/18 00:25 Blood Pressure 121/83 08/05/18 00:25 Pulse Oximetry 100 08/05/18 00:25 Last Documented Vital Signs Temperature 97.5 F L 08/05/18 00:25 Pulse Rate 59 L 08/05/18 00:46 Respiratory Rate 20 08/05/18 00:46 Blood Pressure 141/63 H 08/05/18 00:46 Pulse Oximetry 100 08/05/18 00:46 Medical Decision Making MDM Narrative Medical decision making narrative: Vital signs reviewed. Patient had a bowel movement while in the emergency department and was noted to be black. This was tested, and is heme positive. Chart review shows that the patient had an EGD done in January of this year that showed several duodenal ulcers as well as gastritis. For this reason the patient was given a Protonix bolus and started on a Protonix drip. CBC is remarkable for an H&H of 9.8/26. This is slightly worse than her baseline. BUN is 47, likely secondary to upper GI bleed. Creatinine is 0.68. CT head read as negative noncontrast head CT. CT abdomen pelvis: CONCLUSION: 1. Wall thickening involving the body the stomach most pronounced posteriorly. Differential diagnostic considerations would include gastritis versus an infiltrating malignancy. 2. Small hiatal hernia. The patient and the patient's were made aware of all findings. She continues to complain of epigastric abdominal pain. She will be given a GI cocktail. She is also complaining of persistent left-sided headache. Chart review shows that she has had similar headaches in the past. She will be given a dose of Tylenol for this. She will be admitted for further treatment and evaluation of GI bleed/melena and anemia. Currently her vital signs are within normal limits. Case discussed with hospitalist Dr. Olivas who will admit the patient to the hospitalist service. Medical Screen Exam Complete: Yes Emergency Medical Condition: Yes Differential Diagnosis Differential Diagnosis: Gastroenteritis, dehydration/metabolic abnormality, GI bleed, closed head injury/concussion, intracranial traumatic injury Lab Data Result diagrams: 08/05/18 01:00 08/05/18 01:00 Lab Results 08/05/18 08/05/18 08/05/18 Range/Units 01:00 01:00 01:00 WBC 10.8 (4.0-11.0) th/mm3 RBC 3.26 L (4.00-5.30) mil/mm3 Hgb 8.9 L (11.6-15.3) gm/dL Hct 26.6 L (35.0-46.0) % MCV 81.7 (80.0-100.0) fL MCH 27.2 (27.0-34.0) pg MCHC 33.3 (32.0-36.0) % RDW 16.3 (11.6-17.2) % Plt Count 334 (150-450) th/mm3 MPV 8.0 (7.0-11.0) fL Neut % (Auto) 71.4 H (16.0-70.0) % Lymph % (Auto) 17.0 (9.0-44.0) % [place] % (Auto) 10.2 H (0.0-8.0) % Eos % (Auto) 0.1 (0.0-4.0) % Baso % (Auto) 1.3 (0.0-2.0) % Neut # (Auto) 7.7 (1.8-7.7) th/mm3 Lymph # (Auto) 1.8 (1.0-4.8) th/mm3 [place] # (Auto) 1.1 H (0.0-0.9) th/mm3 Eos # (Auto) 0.0 (0.0-0.4) th/mm3 Baso # (Auto) 0.1 (0.0-0.2) th/mm3 WBC Differential . Differential Comment Auto diff final PT 10.5 (9.8-11.6) sec INR 1.0 Ratio APTT 20.6 L (23.4-31.7) sec Sodium 138 (136-145) meq/L Potassium 3.4 L (3.5-5.1) meq/L Chloride 106 (98-107) meq/L Carbon Dioxide 21.3 (21.0-32.0) meq/L Anion Gap 11 (5-15) meq/L BUN 47 H (7-18) mg/dL Creatinine 0.68 (0.50-1.00) mg/dL Estimated GFR 83 L (>89) mL/min Random Glucose 194 H (74-106) mg/dL Calcium 7.7 L (8.5-10.1) mg/dL Magnesium 1.7 (1.5-2.5) mg/dL Total Bilirubin 0.4 (0.2-1.0) mg/dL AST 8 L (15-37) U/L ALT 11 (10-53) U/L Alkaline Phosphatase 66 (45-117) U/L Total Creatine Kinase 19 L (26-192) U/L Troponin I Less than 0.02 L (0.02-0.05) ng/mL Total Protein 6.0 L (6.4-8.2) g/dL Albumin 3.2 L (3.4-5.0) g/dL Lipase 183 (73-393) U/L Imaging Data Radiologist's impression: Abdomen/Pelvis CT 08/05/18 00:42 CONCLUSION: 1. Wall thickening involving the body the stomach most pronounced posteriorly. Differential diagnostic considerations would include gastritis versus an infiltrating malignancy. 2. Small hiatal hernia. Chest X-Ray 08/05/18 00:42 CONCLUSION: Negative examination. Head CT 08/05/18 00:45 CONCLUSION: 1. Negative CT Head non contrast. . Discharge Plan Discharge Disposition Patient Disposition: ED Admit(ED Internal Use Only) Discharge Condition Condition: Stable Discharge Details Diagnosis: GI (gastrointestinal bleed), Anemia Physicians Team ED Provider: Kei Prince Primary Care Provider: UNKNOWN, Rxs /Orders / Referrals /Forms Prescriptions: No Action Unable to Obtain Home Meds RF: 0 Status ED Status: With Doctor
[2018-08-05 01:03] LABS: Baso # (Auto) 0.1 th/mm3 (0.0-0.2); Baso % (Auto) 1.3 % (0.0-2.0); Eos % (Auto) 0.1 % (0.0-4.0); Hematocrit 26.6 % (35.0-46.0); Hemoglobin 8.9 gm/dL (11.6-15.3); Lymph # (Auto) 1.8 th/mm3 (1.0-4.8); Mean Corpuscular HGB Conc 33.3 % (32.0-36.0); Mean Corpuscular Hemoglobin 27.2 pg (27.0-34.0); Mean Corpuscular Volume 81.7 fL (80.0-100.0); Mono # (Auto) 1.1 th/mm3 (0.0-0.9); Mono % (Auto) 10.2 % (0.0-8.0); Neut # (Auto) 7.7 th/mm3 (1.8-7.7); Neut % (Auto) 71.4 % (16.0-70.0); Platelet Count 334 th/mm3 (150-450); Red Blood Count 3.26 mil/mm3 (4.00-5.30); Red Cell Distribution Width 16.3 % (11.6-17.2); White Blood Count 10.8 th/mm3 (4.0-11.0)
[2018-08-05] MEDS ORDERED: Pantoprazole Inj 40 MG Vial IV.PUSH ONE (01:18)
[2018-08-05 01:23] LABS: Activated Partial Thrombo Time 20.6 sec (23.4-31.7); Prothrombin Time 10.5 sec (9.8-11.6)
[2018-08-05 01:24] LABS: Alanine Aminotransferase 11 U/L (10-53); Albumin 3.2 g/dL (3.4-5.0); Anion Gap 11 meq/L (5-15); Aspartate Aminotransferase 8 U/L (15-37); Blood Urea Nitrogen 47 mg/dL (7-18); Calcium 7.7 mg/dL (8.5-10.1); Carbon Dioxide 21.3 meq/L (21.0-32.0); Chloride 106 meq/L (98-107); Glomerular Filtration Rate 83 mL/min (>89); Glucose,Random 194 mg/dL (74-106); Lipase 183 U/L (73-393); Magnesium 1.7 mg/dL (1.5-2.5); Potassium 3.4 meq/L (3.5-5.1); Sodium 138 meq/L (136-145)
[2018-08-05 01:28] LABS: Alkaline Phosphatase 66 U/L (45-117)
[2018-08-05 01:37] LABS: Creatine Kinase 19 U/L (26-192)
[2018-08-05] MEDS: Pantoprazole Inj 80 MG in Sodium Chlor 0.9% Inj 100 ML IV.CONT SCH (01:38)
--- NOTE | 2018-08-05 02:18 | XR ---
EXAM DATE: 08/05/2018 1:42 AM EST AGE/SEX: 82 years / Female INDICATIONS: Chest pain. CLINICAL DATA: This is the patient's initial encounter. Patient reports that signs and symptoms have been present for 1 day and indicates a pain score of 5/10. MEDICAL/SURGICAL HISTORY: Asthma. Hypertension. Hyste[place]. [place] [facility] [place] . FINDINGS: A single AP view of the chest demonstrates the lungs to be symmetrically aerated without evidence of mass, infiltrate or effusion. The cardiomediastinal contours are unremarkable. Osseous structures a re intact. Scoliotic curvature. CONCLUSION: Negative examination. Electronically signed by: Jose R Guzman MD 08/05/2018 2:16 AM EST
--- NOTE | 2018-08-05 02:25 | CT ---
EXAM DATE: 08/05/2018 2:20 AM EST AGE/SEX: 82 years / Female INDICATIONS: Slipped and hit head. CLINICAL DATA: This is the patient's initial encounter. Patient reports that signs and symptoms have been present for 2 days and indicates a pain score of 10/10. MEDICAL/SURGICAL HISTORY: Dementia. Hypertension. Liver hemorrhage. None. RADIATION DOSE: 56.35 CTDI (mGy) [place] [facility] [place]. . TECHNIQUE: CT of the head without contrast. Using automated exposure control and adjustment of the mA and/or kV according to patient size, radiation dose was kept as low as reasonably achievable to ob tain optimal diagnostic quality images. DICOM format image data is available electronically for revi ew and comparison. FINDINGS: Cerebrum: The ventricles are normal for age. No evidence of midline shift, mass lesion, hemorrhage or acute infarction. No extraaxial fluid collections are seen. Posterior Fossa: The cerebellum and brainstem are intact. The 4th ventricle is midline. The cerebe llopontine angle is unremarkable. Extracranial: The visualized portion of the orbits is intact. Skull: The calvaria is intact. No evidence of skull fracture. CONCLUSION: 1. Negative CT Head non contrast. . Electronically signed by: Jose R Guzman MD 08/05/2018 2:23 AM EST
--- NOTE | 2018-08-05 02:36 | CT ---
EXAM DATE: 08/05/2018 2:23 AM EST AGE/SEX: 82 years / Female INDICATIONS: Abdominal pain. Nausea, vomiting, and diarrhea. CLINICAL DATA: This is the patient's initial encounter. Patient reports that signs and symptoms have been present for 2 days and indicates a pain score of 10/10. MEDICAL/SURGICAL HISTORY: Dementia. Hypertension. Liver Hemorrhage. None. ORAL CONTRAST: No oral contrast ingested. RADIATION DOSE: 6.94 CTDI (mGy) [place] [facility] [place]. . TECHNIQUE: Multiple contiguous axial images were obtained through the abdomen and pelvis following b olus infusion of 71 ml Omnipaque 350 (iohexol) nonionic water-soluble contrast as a single exam dos e. No oral contrast ingested. Using automated exposure control and adjustment of the mA and/or kV ac cording to patient size, radiation dose was kept as low as reasonably achievable to obtain optimal di agnostic quality images. DICOM format image data is available electronically for review and comparis on. FINDINGS: Lower Lungs: The visualized lower lungs are clear. Small hiatal hernia. Liver: The liver has a homogeneous density without space-occupying lesion. There is no dilation of th e biliary tree. Gallbladder is unremarkable. Spleen: Homogeneous density without enlargement. Pancreas: Unremarkable without mass or calcification. Kidneys: Normal in size and shape. No evidence of mass or hydronephrosis. Adrenal Glands: Unremarkable. Aorta: Diffuse calcified atherosclerotic plaque without aneurysmal dilation. Bowel/Mesentery: There is wall thickening involving the body of the stomach most pronounced posterio rly. The stomach is decompressed otherwise. No obstruction is observed. Scattered colonic diverticuli . No free air or free fluid. The bowel loops are grossly unremarkable. The cecum and sigmoid colon sahu ve a normal configuration. Abdominal Wall: Intact. Retroperitoneum: No evidence of adenopathy in the retrocrural, para-aortic, or deep pelvic regions. Bladder: Contours are smooth. Reproductive Organs: No abnormal masses or calcifications seen. Inguinal: The inguinal region is unremarkable without evidence of adenopathy. Bony Structures: Unremarkable. CONCLUSION: 1. Wall thickening involving the body the stomach most pronounced posteriorly. Differential diagnost ic considerations would include gastritis versus an infiltrating malignancy. 2. Small hiatal hernia. Electronically signed by: Jose R Guzman MD 08/05/2018 2:34 AM EST
[2018-08-05] MEDS ORDERED: Aluminum/Magnesium/Simethacone Susp 30 ML UDC PO ONE (02:40)
[2018-08-05] MEDS ORDERED: Acetaminophen 325 MG Tablet PO ONE (02:40)
[2018-08-05] MEDS ORDERED: Morphine Sulfate Inj 2 MG/ML Vial IV.PUSH PRN (03:35)
[2018-08-05] MEDS ORDERED: Naloxone Inj 0.4 MG/ML Vial IV.PUSH PRN (03:35)
[2018-08-05] MEDS ORDERED: Bisacodyl 10 MG Supp RECTAL PRN (03:35)
[2018-08-05] MEDS ORDERED: Acetaminophen 325 MG Tablet PO PRN (03:35)
--- NOTE | 2018-08-05 04:34 | P.HP ---
History of Present Illness Service: [facility] Primary Care Physician: No Primary Care Physician History of Present Illness: 82-year-old female with a past medical history significant for dementia, hypertension, hyperlipidemia, atrial fibrillation and carotid stenosis presents to the emergency department for the evaluation of nausea, vomiting, diarrhea, headache and abdominal pain. At the time of our interview, the patient cannot tell me why she is here. She denies any current pain. History is limited secondary to dementia. Her provides most of her history. The patient states she fell out of bed onto her head however her states that this did not happen. They live alone in their own home. The patient denies any chest pain or shortness of breath. During her evaluation in the emergency department, the patient was noted to have melanotic stools that were Hemoccult positive. The patient reports this has been going on for several days, her states she has had one previous episode. Review of Systems All other systems reviewed negative except as stated [facility] - History History Provided By: Patient - Medical History Medical History: Medical History (Last Updated 08/05/18 @ 04:26 by Joelle Olivas MD) Atrial fibrillation Carotid stenosis High blood pressure Hyperlipidemia Dementia - Surgical History Surgical History: Surgical History (Last Updated 08/05/18 @ 04:27 by Joelle Olivas MD) History of colostomy reversal History of tonsillectomy - Family History Family History: Family History (Last Updated 08/05/18 @ 04:28 by Joelle Olivas MD) Other Family history unknown - Tobacco History Smoking Status: Never smoker - Alcohol History How Often Do You Have a Drink Containing Alcohol: Never - Travel History Recent Travel in the [place] Within the Last 8 Weeks: No Recent Travel Out of the Country Within the Last 8 Weeks: No - Immunization History Tetanus Immunization: >5 Years Medications and Allergies Active Medications: Active Medications Acetaminophen (Tylenol) 650 mg PO Q4H PRN PRN Reason: headache/fever/pain1-5 Hydrocodone Bitart/Acetaminophen ([place] 5/325) 1 tab PO Q6H PRN PRN Reason: PAIN SCALE 6 TO 10 Al Hydroxide/Mg Hydroxide (Milk Of Magnesia Liq) 30 ml PO Q12H PRN PRN Reason: Mild Constipation Bisacodyl (Dulcolax Supp) 10 mg RECTAL DAILY PRN PRN Reason: SEVERE CONSITIPATION Sodium Chloride (Ns Inj) 1,000 mls @ 125 mls/hr IV.CONT .Q8H SANDRA Stop: 08/05/18 08:44 Last Admin: 08/05/18 01:00 Dose: 125 mls/hr Pantoprazole Sodium 80 mg/ (Sodium Chloride) 100 mls @ 10 mls/hr IV.CONT CONT SANDRA Last Admin: 08/05/18 01:38 Dose: 10 mls/hr Lactulose (Lactulose Liq) 30 ml PO DAILY PRN PRN Reason: SEVERE CONSITIPATION Morphine Sulfate (Morphine Inj) 2 mg IV.PUSH Q4H PRN PRN Reason: breakthrough pain/or if NPO Naloxone HCl (Narcan Inj) 0.4 mg IV.PUSH UNSCH PRN PRN Reason: SEE LABEL COMMENTS Ondansetron HCl (Zofran Inj) 4 mg IV.PUSH Q6H PRN PRN Reason: NAUSEA OR VOMITING Senna/Docusate Sodium (Ana Laura-Colace) 1 tab PO BID [facility] Sennosides (Senokot) 17.2 mg PO Q12H PRN PRN Reason: Moderate Constipation Sodium Chloride (Ns Flush) 2 ml IV.FLUSH PRN PRN PRN Reason: FLUSH AFTER USING IV ACCESS Sodium Chloride (Ns Flush) 2 ml IV.FLUSH BID SANDRA Sodium Chloride (Ns Flush) 2 ml IV.FLUSH PRN PRN PRN Reason: FLUSH AFTER USING IV ACCESS Allergies Allergy/AdvReac Type Severity Reaction Status Date / Time Sulfa (Sulfonamide Allergy Severe Swelling Verified 08/05/18 00:28 Antibiotics) Home Medications Medication Instructions Recorded Confirmed Type Unable to Obtain Home Meds 08/05/18 08/05/18 History Exam Vital signs: Vital Signs 08/05/18 00:25 08/05/18 00:46 08/05/18 03:33 Temperature 97.5 F L Pulse Rate 63 59 L 61 Respiratory Rate 20 20 16 Blood Pressure 121/83 141/63 H 170/67 H Pulse Oximetry 100 100 98 Intake & Output 08/04/18 08/04/18 08/05/18 06:59 18:59 06:59 Weight 54.431 kg Narrative: Gen.: No acute distress, thin female lying in bed Head: Normocephalic. Atraumatic. EENT: Pupils equal round and reactive to light. Nose without drainage. Airway intact. Throat without injection. Cardiovascular: Regular rate and rhythm. No murmurs, rubs or gallops. Respiratory: Lungs clear to auscultation bilaterally. No wheezes or rhonchi. Abdomen: Soft, nontender, nondistended. No peritoneal signs. Musculoskeletal: No gross deformities. No edema. Skin: No obvious rashes or erythema. Neuro: Sensory and motor grossly intact. Cranial nerves II through XII grossly intact. Results - Labs CBC & Chem 7: 08/05/18 01:00 08/05/18 01:00 Labs: Laboratory Results - last 24 hr 08/05/18 08/05/18 08/05/18 01:00 01:00 01:00 WBC 10.8 RBC 3.26 L Hgb 8.9 L Hct 26.6 L MCV 81.7 MCH 27.2 MCHC 33.3 RDW 16.3 Plt Count 334 MPV 8.0 Neut % (Auto) 71.4 H Lymph % (Auto) 17.0 [place] % (Auto) 10.2 H Eos % (Auto) 0.1 Baso % (Auto) 1.3 Neut # (Auto) 7.7 Lymph # (Auto) 1.8 [place] # (Auto) 1.1 H Eos # (Auto) 0.0 Baso # (Auto) 0.1 WBC Differential . Differential Comment Auto diff final PT 10.5 INR 1.0 APTT 20.6 L Sodium 138 Potassium 3.4 L Chloride 106 Carbon Dioxide 21.3 Anion Gap 11 BUN 47 H Creatinine 0.68 Estimated GFR 83 L Random Glucose 194 H Calcium 7.7 L Magnesium 1.7 Total Bilirubin 0.4 AST 8 L ALT 11 Alkaline Phosphatase 66 Total Creatine Kinase 19 L Troponin I Less than 0.02 L Total Protein 6.0 L Albumin 3.2 L Lipase 183 Blood Type Blood Type Recheck Antibody Screen 08/05/18 01:20 WBC RBC Hgb Hct MCV MCH MCHC RDW Plt Count MPV Neut % (Auto) Lymph % (Auto) [place] % (Auto) Eos % (Auto) Baso % (Auto) Neut # (Auto) Lymph # (Auto) [place] # (Auto) Eos # (Auto) Baso # (Auto) WBC Differential Differential Comment PT INR APTT Sodium Potassium Chloride Carbon Dioxide Anion Gap BUN Creatinine Estimated GFR Random Glucose Calcium Magnesium Total Bilirubin AST ALT Alkaline Phosphatase Total Creatine Kinase Troponin I Total Protein Albumin Lipase Blood Type O Negative Blood Type Recheck Not needed Antibody Screen Negative - Imaging Impressions Abdomen/Pelvis CT 08/05/18 00:42 CONCLUSION: 1. Wall thickening involving the body the stomach most pronounced posteriorly. Differential diagnostic considerations would include gastritis versus an infiltrating malignancy. 2. Small hiatal hernia. Chest X-Ray 08/05/18 00:42 CONCLUSION: Negative examination. Head CT 08/05/18 00:45 CONCLUSION: 1. Negative CT Head non contrast. . Caprini VTE Risk Assessment Caprini VTE Risk Assessment: Moderate/High Risk (score >= 2) VTE Pharmacological Exception Reason: Active bleeding Caprini Risk Assessment Model: Point Value = 1 Point Value = 2 Point Value = 3 Point Value = 5 Age 41-60 Minor surgery BMI > 25 kg/m2 Swollen legs Varicose veins or History of unexplained or recurrent spontaneous Oral contraceptives or hormone replacement Sepsis (< 1 month) Serious lung disease, including pneumonia (< 1 month) Abnormal pulmonary function Acute myocardial infarction Congestive heart failure (< 1 month) History of inflammatory bowel disease Medical patient at bed rest Age 61-74 Arthroscopic surgery Major open surgery (> 45 min) Laparoscopic surgery (> 45 min) Malignancy Confined to bed (> 72 hours) Immobilizing plaster cast Central venous access Age >= 75 History of VTE Family history of VTE Factor V Leiden Prothrombin [id number] Lupus anticoagulant Anticardiolipin antibodies Elevated serum homocysteine Heparin-induced thrombocytopenia Other congenital or acquired thrombophilia Stroke (< 1 month) Elective arthroplasty Hip, pelvis, or leg fracture Acute spinal cord injury (< 1 month) Prophylaxis Regimen: Total Risk Factor Score Risk Level Prophylaxis Regimen 0-1 Low Early ambulation 2 Moderate Order ONE of the following: *Sequential Compression Device (SCD) *Heparin 5000 units SQ BID 3-4 Higher Order ONE of the following medications: *Heparin 5000 units SQ TID *Enoxaparin/Lovenox 40 mg SQ daily (WT < 150 kg, CrCl > 30 mL/min) *Enoxaparin/Lovenox 30 mg SQ daily (WT < 150 kg, CrCl > 10-29 mL/min) *Enoxaparin/Lovenox 30 mg SQ BID (WT < 150 kg, CrCl > 30 mL/min) AND/OR *Sequential Compression Device (SCD) 5 or more Highest Order ONE of the following medications: *Heparin 5000 units SQ TID (Preferred with Epidurals) *Enoxaparin/Lovenox 40 mg SQ daily (WT < 150 kg, CrCl > 30 mL/min) *Enoxaparin/Lovenox 30 mg SQ daily (WT < 150 kg, CrCl > 10-29 mL/min) *Enoxaparin/Lovenox 30 mg SQ BID (WT < 150 kg, CrCl > 30 mL/min) AND *Sequential Compression Device (SCD) Assessment and Plan - Plan Assessment/plan: 1. GI bleed Patient with melena and Hemoccult-positive stool Serial H&H Transfuse as needed Protonix bolus and drip Gastroenterology consulted, appreciate assistance 2. Atrial fibrillation Patient and her do not know what home medications the patient is on History found by chart review From previous H&P in January 2018 patient was not on systemic anticoagulation Resume antiarrhythmic medications once reconciled 3. Hypertension/hyperlipidemia Patient's home medications unknown Hydralazine as needed Resume once reconciled FEN N.p.o. Electrolytes: Ongoing IV repletion of potassium, monitor BMP Holding pharmacologic anticoagulation for active GI bleed
[2018-08-05] MEDS: Potassium Chlor 20 mEq Premix 20 MEQ/100 ML PIGGYBACK IV.SIG SCH ×2 (07:46→08:52)
[2018-08-05] MEDS: Senna/Docusate Sodium 8.6/50 MG Tablet PO SCH ×2 (07:46→10:30)
[2018-08-05 10:12] LABS: Baso # (Auto) 0.1 th/mm3 (0.0-0.2); Eos % (Auto) 0.3 % (0.0-4.0); Hematocrit 22.5 % (35.0-46.0); Hemoglobin 7.4 gm/dL (11.6-15.3); Lymph % (Auto) 14.4 % (9.0-44.0); Mean Corpuscular Volume 81.9 fL (80.0-100.0); Mean Platelet Volume 8.1 fL (7.0-11.0); Mono # (Auto) 0.7 th/mm3 (0.0-0.9); Mono % (Auto) 9.8 % (0.0-8.0); Neut # (Auto) 5.1 th/mm3 (1.8-7.7); Neut % (Auto) 74.5 % (16.0-70.0); Platelet Count 227 th/mm3 (150-450); Red Blood Count 2.75 mil/mm3 (4.00-5.30); Red Cell Distribution Width 16.5 % (11.6-17.2); White Blood Count 6.9 th/mm3 (4.0-11.0)
[2018-08-05 10:40] LABS: Anion Gap 6 meq/L (5-15); Blood Urea Nitrogen 35 mg/dL (7-18); Calcium 7.8 mg/dL (8.5-10.1); Carbon Dioxide 22.9 meq/L (21.0-32.0); Chloride 113 meq/L (98-107); Glomerular Filtration Rate Greater Than 89 mL/min (>89); Glucose,Random 113 mg/dL (74-106); Potassium 4.4 meq/L (3.5-5.1); Sodium 142 meq/L (136-145)
--- NOTE | 2018-08-05 11:15 | P.CONGI ---
History of Present Illness Consult date: 08/05/18 Consult reason: GIB Chief complaint: GI Bleed, Melena, Anemia History of Present Illness: This is a 82-year-old female with past medical history significant for atrial fibrillation not currently on any anticoagulation, carotid stenosis, dementia, hypertension and hyperlipidemia. Patient presented to the emergency department for evaluation of nausea, vomiting, diarrhea and abdominal pain. Patient has history of dementia and is unable to provide reliable history. Her is currently at bedside and provides most the history. He reports that for the past 3 days patient has been having nausea with coffee ground emesis, last episode of emesis was yesterday. Pt has also been having melanotic stools. He is unsure if she has had any fevers or chills. Pt does state that she was having upper abdominal pain but that it has completely resolved since admission. Pt with history of PUD, last EGD was in March and revealed erythematous gastritis, single ulcer in the gastric antrum, and duodenal inflammation. Pt denies NSAID use. Does take a baby ASA a day. Denies alcohol use or smoking. Review of Systems Gastrointestinal: Reports abdominal pain, Reports black, tarry stools, Reports coffee ground vomit, Reports loose stools, Reports nausea, Reports vomiting, Denies bright, red blood in stools PMFSH - History History Provided By: Patient - Medical History Medical History: Medical History (Last Updated 08/05/18 @ 04:26 by Joelle Olivas MD) Atrial fibrillation Carotid stenosis High blood pressure Hyperlipidemia Dementia - Surgical History Surgical History: Surgical History (Last Updated 08/05/18 @ 04:27 by Joelle Olivas MD) History of colostomy reversal History of tonsillectomy - Family History Family History: Family History (Last Updated 08/05/18 @ 04:28 by Joelle Olivas MD) Other Family history unknown - Tobacco History Smoking Status: Never smoker - Alcohol History How Often Do You Have a Drink Containing Alcohol: Never - Substance Use History Substance History: No History of Abuse - Travel History Recent Travel in the [place] Within the Last 8 Weeks: No Recent Travel Out of the Country Within the Last 8 Weeks: No - Immunization History Tetanus Immunization: >5 Years Medications and Allergies Active Medications: Active Medications Acetaminophen (Tylenol) 650 mg PO Q4H PRN PRN Reason: headache/fever/pain1-5 Hydrocodone Bitart/Acetaminophen ([place] 5/325) 1 tab PO Q6H PRN PRN Reason: PAIN SCALE 6 TO 10 Al Hydroxide/Mg Hydroxide (Milk Of Magnesia Liq) 30 ml PO Q12H PRN PRN Reason: Mild Constipation Bisacodyl (Dulcolax Supp) 10 mg RECTAL DAILY PRN PRN Reason: SEVERE CONSITIPATION Hydralazine HCl (Apresoline) 25 mg PO Q6H PRN PRN Reason: SBP> OR = 180, DBP> OR = 100 Pantoprazole Sodium 80 mg/ (Sodium Chloride) 100 mls @ 10 mls/hr IV.CONT CONT [facility] Last Admin: 08/05/18 01:38 Dose: 10 mls/hr Lactulose (Lactulose Liq) 30 ml PO DAILY PRN PRN Reason: SEVERE CONSITIPATION Morphine Sulfate (Morphine Inj) 2 mg IV.PUSH Q4H PRN PRN Reason: breakthrough pain/or if NPO Naloxone HCl (Narcan Inj) 0.4 mg IV.PUSH UNSCH PRN PRN Reason: SEE LABEL COMMENTS Ondansetron HCl (Zofran Inj) 4 mg IV.PUSH Q6H PRN PRN Reason: NAUSEA OR VOMITING Senna/Docusate Sodium (Ana Laura-Colace) 1 tab PO BID [facility] Last Admin: 08/05/18 10:30 Dose: Not Given Sennosides (Senokot) 17.2 mg PO Q12H PRN PRN Reason: Moderate Constipation Sodium Chloride (Ns Flush) 2 ml IV.FLUSH PRN PRN PRN Reason: FLUSH AFTER USING IV ACCESS Sodium Chloride (Ns Flush) 2 ml IV.FLUSH BID [facility] Last Admin: 08/05/18 10:30 Dose: 2 ml Sodium Chloride (Ns Flush) 2 ml IV.FLUSH PRN PRN PRN Reason: FLUSH AFTER USING IV ACCESS Allergies Allergy/AdvReac Type Severity Reaction Status Date / Time Sulfa (Sulfonamide Allergy Severe Swelling Verified 08/05/18 00:28 Antibiotics) Home Medications Medication Instructions Recorded Confirmed Type Unable to Obtain Home Meds 08/05/18 08/05/18 History Exam Vital signs: Vital Signs 08/05/18 00:25 08/05/18 00:46 08/05/18 03:33 Temperature 97.5 F L Pulse Rate 63 59 L 61 Respiratory Rate 20 20 16 Blood Pressure 121/83 141/63 H 170/67 H Pulse Oximetry 100 100 98 08/05/18 04:52 08/05/18 05:00 08/05/18 08:00 Temperature 94.4 F L 97.5 F L Pulse Rate 65 63 Respiratory Rate 16 16 16 Blood Pressure 149/70 H 130/60 Pulse Oximetry 100 Intake & Output 08/04/18 08/05/18 08/05/18 18:59 06:59 18:59 Intake Total 200 / 200 Balance 200 / 200 Weight 54.431 kg Intake: IV 200 / 200 KCl 20 mEq Premix Inj 20 meq In 200 / 200 100 ml @ 50 mls/hr IV.SIG Q2H [facility] Rx#:[id number] Other: Weight On Admission 54.431 kg - Constitutional no acute distress - Routine HEENT Exam Head: Present: normocephalic, atraumatic - Routine Respiratory Exam Absent: accessory muscle use - Routine Cardiovascular Exam Present: S1, S2 - Routine Abdominal Exam Present: soft, normoactive bowel sounds. Absent: tenderness, distended - Routine Skin Exam Present: dry, warm - Routine Neurological Exam Present: alert. Absent: oriented X3 Results - Labs CBC & Chem 7: 08/05/18 08:59 08/05/18 08:59 Labs: Laboratory Results - last 24 hr 08/05/18 08/05/18 08/05/18 01:00 01:00 01:00 WBC 10.8 RBC 3.26 L Hgb 8.9 L Hct 26.6 L MCV 81.7 MCH 27.2 MCHC 33.3 RDW 16.3 Plt Count 334 MPV 8.0 Neut % (Auto) 71.4 H Lymph % (Auto) 17.0 [place] % (Auto) 10.2 H Eos % (Auto) 0.1 Baso % (Auto) 1.3 Neut # (Auto) 7.7 Lymph # (Auto) 1.8 [place] # (Auto) 1.1 H Eos # (Auto) 0.0 Baso # (Auto) 0.1 WBC Differential . Differential Comment Auto diff final PT 10.5 INR 1.0 APTT 20.6 L Sodium 138 Potassium 3.4 L Chloride 106 Carbon Dioxide 21.3 Anion Gap 11 BUN 47 H Creatinine 0.68 Estimated GFR 83 L Random Glucose 194 H Calcium 7.7 L Magnesium 1.7 Total Bilirubin 0.4 AST 8 L ALT 11 Alkaline Phosphatase 66 Total Creatine Kinase 19 L Troponin I Less than 0.02 L Total Protein 6.0 L Albumin 3.2 L Lipase 183 Blood Type Blood Type Recheck Antibody Screen 08/05/18 08/05/18 08/05/18 01:20 08:59 08:59 WBC 6.9 RBC 2.75 L Hgb 7.4 L Hct 22.5 L MCV 81.9 MCH 27.0 MCHC 33.0 RDW 16.5 Plt Count 227 D MPV 8.1 Neut % (Auto) 74.5 H Lymph % (Auto) 14.4 [place] % (Auto) 9.8 H Eos % (Auto) 0.3 Baso % (Auto) 1.0 Neut # (Auto) 5.1 Lymph # (Auto) 1.0 [place] # (Auto) 0.7 Eos # (Auto) 0.0 Baso # (Auto) 0.1 WBC Differential . Differential Comment Auto diff final PT INR APTT Sodium 142 Potassium 4.4 D Chloride 113 H Carbon Dioxide 22.9 Anion Gap 6 BUN 35 H Creatinine 0.51 Estimated GFR Greater than 89 Random Glucose 113 H Calcium 7.8 L Magnesium Total Bilirubin AST ALT Alkaline Phosphatase Total Creatine Kinase Troponin I Total Protein Albumin Lipase Blood Type O Negative Blood Type Recheck Not needed Antibody Screen Negative - Imaging Impressions Abdomen/Pelvis CT 08/05/18 00:42 CONCLUSION: 1. Wall thickening involving the body the stomach most pronounced posteriorly. Differential diagnostic considerations would include gastritis versus an infiltrating malignancy. 2. Small hiatal hernia. Chest X-Ray 08/05/18 00:42 CONCLUSION: Negative examination. Head CT 08/05/18 00:45 CONCLUSION: 1. Negative CT Head non contrast. . Assessment and Plan - Plan Assessment - Upper GIB-patient has 3-day history of nausea with coffee-ground emesis and melena. States multiple episodes of melena, last BM was yesterday. Last episode of emesis was yesterday. She is not on anticoagulants, does take a daily baby ASA. Denies NSAIDs. Denies ETOH and smoking. History of PUD. EGD (March 2018) esophagus appeared normal. Erythematous gastritis in the gastric antrum. Single ulcer ranging between 3-5 mm in size was found in the gastric antrum. Duodenal inflammation was found in the duodenal bulb. Pt was advised to continue Zantac, unsure if she is still compliant with this H/H currently 7.12/20.5 Plan EGD today Obtain consent Keep n.p.o. Protonix drip Monitor H/H Further recommendations based on EGD findings This patient has been seen and examined by myself and Dr. Ellis and this note is written on his behalf
--- NOTE | 2018-08-05 15:31 | P.PNADD ---
Addendum to Inpatient Note Reason for Addendum: Additional Documentation Additional information: Nursing denies any deterioration since last night. Patient has come back from her EGD procedure, nursing reports that there was some ulcer found. No other information or details are available at this time. Patient reports having some abdominal pain with deep breathing. On exam she is clear lungs bilaterally, unlabored breathing Heart sounds regular rate rhythm, no murmurs Appears somewhat pale Abdomen is soft, has tenderness upon deep palpation in the epigastrium which the patient affirms is her pain upon deep breathing
[2018-08-05 16:34] LABS: Hematocrit 22.3 % (35.0-46.0); Hemoglobin 7.4 gm/dL (11.6-15.3)
[2018-08-05] MEDS ORDERED: Sodium Chloride 0.9% 2 ML Flush PRN IV.FLUSH (16:46)
[2018-08-05] MEDS: hydrALAZINE 25 MG Tablet PO PRN (16:53)
--- NOTE | 2018-08-05 17:31 | ECG ---
Date Performed: 08/05/2018 Time Performed: 01:23:03 PTAGE: 82 years EKG: SINUS BRADYCARDIA WITH FIRST DEGREE AV BLOCK PROBABLE LVH Compared to previous tracing, the inferolateral ST segment changes have resolved. The PVCs have resolved. Clinical correlation is shukri mmended ABNORMAL ECG PREVIOUS TRACING : 02/17/2018 18.31 DOCTOR: Josephine Mcwilliams Interpretating Date/Time 08/05/2018 17:30:54
[2018-08-05 19:52] LABS: Hematocrit 20.1 % (35.0-46.0); Hemoglobin 6.8 gm/dL (11.6-15.3)
[2018-08-05] MEDS ORDERED: Sodium Chlor 0.9% Inj 250 ML IV.SIG SCH (21:00)
[2018-08-05] MEDS ORDERED: Sodium Chloride 0.9% 2 ML Flush BID IV.FLUSH SCH (21:00)
[2018-08-06] MEDS: Senna/Docusate Sodium 8.6/50 MG Tablet PO SCH ×2 (00:56→09:39)
[2018-08-06] MEDS: Pantoprazole Inj 80 MG in Sodium Chlor 0.9% Inj 100 ML IV.CONT SCH (03:35)
[2018-08-06] MEDS ORDERED: Sodium Chlor 0.9% Inj 250 ML IV.SIG SCH (09:00)
[2018-08-06] MEDS ORDERED: Pantoprazole Inj 40 MG Vial IV.PUSH SCH (09:00)
[2018-08-06 09:09] LABS: Baso # (Auto) 0.1 th/mm3 (0.0-0.2); Baso % (Auto) 1.2 % (0.0-2.0); Eos % (Auto) 0.4 % (0.0-4.0); Hematocrit 23.5 % (35.0-46.0); Hemoglobin 7.9 gm/dL (11.6-15.3); Lymph % (Auto) 19.6 % (9.0-44.0); Mean Corpuscular HGB Conc 33.6 % (32.0-36.0); Mean Corpuscular Hemoglobin 27.5 pg (27.0-34.0); Mean Corpuscular Volume 81.7 fL (80.0-100.0); Mean Platelet Volume 7.8 fL (7.0-11.0); Mono # (Auto) 0.6 th/mm3 (0.0-0.9); Mono % (Auto) 13.1 % (0.0-8.0); Neut # (Auto) 3.2 th/mm3 (1.8-7.7); Neut % (Auto) 65.7 % (16.0-70.0); Platelet Count 179 th/mm3 (150-450); Red Blood Count 2.88 mil/mm3 (4.00-5.30); Red Cell Distribution Width 15.8 % (11.6-17.2); White Blood Count 4.9 th/mm3 (4.0-11.0)
[2018-08-06 09:30] LABS: Anion Gap 7 meq/L (5-15); Blood Urea Nitrogen 15 mg/dL (7-18); Calcium 7.7 mg/dL (8.5-10.1); Carbon Dioxide 23.4 meq/L (21.0-32.0); Chloride 113 meq/L (98-107); Glomerular Filtration Rate Greater Than 89 mL/min (>89); Glucose,Random 116 mg/dL (74-106); Potassium 3.1 meq/L (3.5-5.1); Sodium 143 meq/L (136-145)
[2018-08-06] MEDS: hydrALAZINE 25 MG Tablet PO PRN (09:39)
[2018-08-06] MEDS ORDERED: Potassium Chloride Inj 20 MEQ, Magnesium Sulfate Inj 2 GM in Sod Chloride 0.9% Inj 1,00... IV.SIG ONE (12:00)
--- NOTE | 2018-08-06 12:32 | P.PN ---
Subjective Interval history: Nursing denies any acute changes overnight. Patient has been transfused 1 unit of blood due to low evening hemoglobin check. This morning hemoglobin is improved. Patient herself says she feels better than day of admission. No belly pain, no nausea no vomiting. Physical Exam Vital signs: Vital Signs 08/05/18 14:31 08/05/18 14:45 08/05/18 15:35 Temperature 97.4 F L 97.4 F L Pulse Rate 70 67 Respiratory Rate 18 16 18 Blood Pressure 193/81 H 175/77 H Pulse Oximetry 100 100 08/05/18 16:00 08/05/18 19:16 08/05/18 23:15 Temperature 97.7 F 97.8 F 97.9 F Pulse Rate 70 78 78 Respiratory Rate 16 16 20 Blood Pressure 185/76 H 124/58 L 139/65 Pulse Oximetry 97 99 100 08/06/18 01:03 08/06/18 01:23 08/06/18 02:28 Temperature 98.2 F 98.3 F 97.3 F L Pulse Rate 82 72 72 Respiratory Rate 18 20 20 Blood Pressure 147/60 H 109/51 L 119/60 Pulse Oximetry 94 L 94 L 08/06/18 03:42 08/06/18 03:58 08/06/18 04:36 Temperature 98.2 F 97.9 F 97.9 F Pulse Rate 80 72 69 Respiratory Rate 20 16 20 Blood Pressure 121/59 L 112/55 L 124/59 L Pulse Oximetry 96 96 95 08/06/18 07:48 08/06/18 08:00 08/06/18 12:00 Temperature 97.7 F 97.3 F L Pulse Rate 73 74 75 Respiratory Rate 16 16 Blood Pressure 150/66 H 150/65 H Pulse Oximetry 100 100 Intake & Output 08/05/18 08/06/18 08/06/18 18:59 06:59 18:59 Intake Total 1550 / 1550 400 / 400 Balance 1550 / 1550 400 / 400 Intake: IV 1300 / 1300 Protonix Inj 80 MG In NS Inj 100 / 100 100 ML @ 10 mls/hr IV.CONT CONT [facility] Rx#:[id number] NS Inj 1,000 ML @ 125 mls/hr IV 1000 / 1000 .CONT .Q8H [facility] Rx#:[id number] KCl 20 mEq Premix Inj 20 meq In 200 / 200 100 ml @ 50 mls/hr IV.SIG Q2H [facility] Rx#:[id number] Anesthesia Amount 250 / 250 Intake (Blood Product) Amt 400 / 400 Rbc As-3 Leukoreduced Unit 400 / 400 [id number] Other: Date of Last Bowel Movement 08/05/18 Narrative: Abdomen soft, nontender, nondistended Clear lungs bilaterally, unlabored breathing Heart sounds regular rate and rhythm, no murmurs Results - Labs CBC & Chem 7: 08/06/18 08:47 08/06/18 08:47 Laboratory Results - last 24 hr 08/05/18 08/05/18 08/05/18 01:20 16:18 19:30 WBC RBC Hgb 7.4 L 6.8 L* Hct 22.3 L 20.1 L* MCV MCH MCHC RDW Plt Count MPV Neut % (Auto) Lymph % (Auto) [place] % (Auto) Eos % (Auto) Baso % (Auto) Neut # (Auto) Lymph # (Auto) [place] # (Auto) Eos # (Auto) Baso # (Auto) WBC Differential Differential Comment Sodium Potassium Chloride Carbon Dioxide Anion Gap BUN Creatinine Estimated GFR Random Glucose Calcium Magnesium MTS Gel Crossmatch See Detail 08/06/18 08/06/18 08/06/18 08:26 08:47 08:47 WBC 4.9 RBC 2.88 L Hgb 7.9 L Hct 23.5 L MCV 81.7 MCH 27.5 MCHC 33.6 RDW 15.8 Plt Count 179 MPV 7.8 Neut % (Auto) 65.7 Lymph % (Auto) 19.6 [place] % (Auto) 13.1 H Eos % (Auto) 0.4 Baso % (Auto) 1.2 Neut # (Auto) 3.2 Lymph # (Auto) 1.0 [place] # (Auto) 0.6 Eos # (Auto) 0.0 Baso # (Auto) 0.1 WBC Differential . Differential Comment Auto diff final Sodium 143 Potassium 3.1 L D Chloride 113 H Carbon Dioxide 23.4 Anion Gap 7 BUN 15 Creatinine 0.57 Estimated GFR Greater than 89 Random Glucose 116 H Calcium 7.7 L Magnesium MTS Gel Crossmatch See Detail 08/06/18 08:47 WBC RBC Hgb Hct MCV MCH MCHC RDW Plt Count MPV Neut % (Auto) Lymph % (Auto) [place] % (Auto) Eos % (Auto) Baso % (Auto) Neut # (Auto) Lymph # (Auto) [place] # (Auto) Eos # (Auto) Baso # (Auto) WBC Differential Differential Comment Sodium Potassium Chloride Carbon Dioxide Anion Gap BUN Creatinine Estimated GFR Random Glucose Calcium Magnesium 1.8 MTS Gel Crossmatch Assessment and Plan - Plan 82-year-old white female was admitted with a GI bleed. 1. GI bleed Patient with melena and Hemoccult-positive stool Status post EGD with nonbleeding medium-sized ulcer noted in the antrum. Avoid NSAIDs, Protonix twice daily, repeat EGD in a few months 2. Atrial fibrillation Patient and her do not know what home medications the patient is on History found by chart review From previous H&P in January 2018 patient was not on systemic anticoagulation Resume antiarrhythmic medications once reconciled 3. Hypertension/hyperlipidemia Patient's home medications unknown Hydralazine as needed Resume once reconciled Patient has been maximal benefit from hospitalization is clinically stable for discharge. Discharge Planning: Clear for discharge and to resume Plavix per GI.
--- NOTE | 2018-08-06 13:21 | P.DCO ---
- Diagnosis (1) GI (gastrointestinal bleed) Status: Acute - Physical Therapy Order: Evaluate and treat - Occupational Therapy Order: Evaluate and treat - Home Health Nursing Order: Nursing assessment with vital signs - Case Management Consult Case Management Consult-Home Health: Yes - Certification I have seen patient Julia Ferreira on 08/06/18. My clinical findings support the need for the requested home health care services because: Limited ability to care for self I certify that my clinical findings support that this patient is homebound because: Unsafe to leave home unassisted (1) GI (gastrointestinal bleed) Qualifiers: GI bleed type/associated pathology: melena Qualified Code(s): K92.1 - Brandi
== END 2018-08-06 18:31 | disposition home or self-care (01) ==
LOC: NEDA 00:24 → NEPE 00:24 → NEDA 04:54 → NEPGCP 04:55 → UNDODISOB 08-06 14:54
PROVIDERS: ADMIT Hospitalist; ATTEND Hospitalist
PROC: PANENDO (2018-08-05 13:54)

== ENCOUNTER 2018-08-10 17:00 | Inpatient (IN) ==
[2018-08-10 18:16] LABS: Baso # (Auto) 0.1 th/mm3 (0.0-0.2); Baso % (Auto) 0.9 % (0.0-2.0); Eos % (Auto) 0.6 % (0.0-4.0); Hematocrit 22.1 % (35.0-46.0); Hemoglobin 7.4 gm/dL (11.6-15.3); Lymph # (Auto) 0.9 th/mm3 (1.0-4.8); Lymph % (Auto) 10.6 % (9.0-44.0); Mean Corpuscular HGB Conc 33.3 % (32.0-36.0); Mean Corpuscular Hemoglobin 27.2 pg (27.0-34.0); Mean Corpuscular Volume 81.6 fL (80.0-100.0); Mean Platelet Volume 7.9 fL (7.0-11.0); Mono % (Auto) 11.4 % (0.0-8.0); Neut # (Auto) 6.7 th/mm3 (1.8-7.7); Neut % (Auto) 76.5 % (16.0-70.0); Platelet Count 339 th/mm3 (150-450); Red Blood Count 2.71 mil/mm3 (4.00-5.30); Red Cell Distribution Width 15.9 % (11.6-17.2); White Blood Count 8.7 th/mm3 (4.0-11.0)
[2018-08-10 18:27] LABS: Activated Partial Thrombo Time 22.1 sec (23.4-31.7); INR 1.1 Ratio; Prothrombin Time 10.8 sec (9.8-11.6)
[2018-08-10 18:41] LABS: Alanine Aminotransferase 11 U/L (10-53); Alkaline Phosphatase 62 U/L (45-117); Anion Gap 11 meq/L (5-15); Aspartate Aminotransferase 7 U/L (15-37); Blood Urea Nitrogen 14 mg/dL (7-18); Calcium 7.8 mg/dL (8.5-10.1); Carbon Dioxide 24.2 meq/L (21.0-32.0); Chloride 96 meq/L (98-107); Glomerular Filtration Rate 86 mL/min (>89); Glucose,Random 133 mg/dL (74-106); Sodium 131 meq/L (136-145); Total Protein 5.8 g/dL (6.4-8.2)
[2018-08-10 18:43] LABS: Potassium 2.4 meq/L (3.5-5.1)
[2018-08-10] MEDS: Sod Chloride 0.9% Inj 1,000 ML IV.CONT SCH (18:48)
--- NOTE | 2018-08-10 19:06 | ED ---
HPI General Chief complaint: GI Bleed Stated complaint: bleeding-states ulcer Time Seen by Provider: 08/10/18 17:45 History of Present Illness HPI Narrative: 82-year-old female with a recent history of GI bleed, presents today with complaints of melanotic stool. is at the bedside states that she was recently admitted to the hospital and needed transfusion. He states that shortly after the transfusion they discharged her home. He was under the impression that they did an upper GI series however he is not 100% sure. He reports that over the last 3 days she has had continued melanotic stool. He reports that she is been extremely weak. He also reports that she has had nausea vomiting up until yesterday. There is been no nausea vomiting today. There are no other complaints at the time of examination. Related Data Home Medications Medication Instructions Recorded Confirmed amlodipine 10 mg PO DAILY 08/05/18 08/10/18 clopidogrel [Plavix] 75 mg PO DAILY 08/05/18 08/10/18 memantine 10 mg PO BID 08/05/18 08/10/18 potassium chloride 20 meq PO BID 08/05/18 08/10/18 ranitidine HCl 2 mg/kg PO BID 08/05/18 08/10/18 topiramate 1 mg/kg PO BID 08/05/18 08/10/18 Previous Rx's Medication Instructions Recorded pantoprazole 40 mg PO BID #60 tab 08/06/18 sucralfate [Carafate] 5 ml PO QID #1 bottle 08/06/18 Allergies Allergy/AdvReac Type Severity Reaction Status Date / Time Sulfa (Sulfonamide Allergy Severe Swelling Verified 08/10/18 17:14 Antibiotics) morphine AdvReac Hallucinati Verified 08/10/18 17:38 ons Review of Systems ROS Unobtainable ROS Unobtainable: other ROS: all other systems reviewed are negative Constitutional Denies chills and Denies fever(s) Eyes Reports system reviewed and no additional complaints, except as docu ENT Reports system reviewed and no additional complaints, except as docu Cardiovascular Denies chest pain, Denies diaphoresis and Denies dyspnea Respiratory Denies chest congestion, Denies cough, Denies hemoptysis and Denies dyspnea Gastrointestinal Denies abdominal pain, Reports melena, Reports nausea and Reports vomiting Genitourinary Denies hematuria Musculoskeletal Reports other (Generalized weakness.) Neurologic Reports dizziness, Denies headache(s) and Reports weakness (Weakness.) [facility] Family History Family History Other Family history unknown Social History Social History Substance History: No History of Abuse Second Hand Smoke Exposure: No Smoking Status: Never smoker How Often Do You Have a Drink Containing Alcohol: Never Recent Travel in [facility] within the Last 8 Weeks: No Recent Out of Country Travel within the Last 8 Weeks: No Immunization History Tetanus Immunization: Unsure Exam Narrative Exam Narrative: GENERAL: Well-developed well-nourished female who appears to be pale. SKIN: Focused skin assessment warm/dry. HEAD: Atraumatic. Normocephalic. EYES: Pupils equal and round. No scleral icterus. No injection or drainage. Pale conjunctiva. ENT: No nasal bleeding or discharge. Mucous membranes pink and moist. NECK: Trachea midline. Supple. CARDIOVASCULAR: Regular rate and rhythm. 2/6 systolic murmur appreciated. RESPIRATORY: No accessory muscle use. Clear to auscultation. Breath sounds equal bilaterally. GASTROINTESTINAL: Abdomen soft, non-tender, nondistended. No rebound or guarding. MUSCULOSKELETAL: No obvious deformities. No clubbing. No cyanosis. No edema. RECTAL EXAM: No masses or tenderness, stool is black. Heme positive. NEUROLOGICAL: Awake and confused at baseline no obvious cranial nerve deficits. Motor grossly within normal limits. Normal speech. Procedures Hemaprompt Stool Procedural Steps Taken: specimen placed in appropriate test area and controls appropriately positive and negative Hemaprompt Stool Result: positive Course Initial Documented Vital Signs Temperature 97.3 F L 08/10/18 17:13 Pulse Rate 83 08/10/18 17:13 Respiratory Rate 20 08/10/18 17:13 Blood Pressure 156/67 H 08/10/18 17:13 Pulse Oximetry 100 08/10/18 17:13 Last Documented Vital Signs Temperature 97.3 F L 08/10/18 17:13 Pulse Rate 67 08/10/18 17:40 Respiratory Rate 20 08/10/18 17:40 Blood Pressure 140/67 08/10/18 17:40 Pulse Oximetry 100 08/10/18 17:40 Medical Decision Making [facility] Narrative Medical decision making narrative: This is a 82-year-old female with previous history of GI bleed, presents here today with complaints of recurrent melena. Patient has heme positive stools on exam. Patient's hemoglobin is 7.4. Patient also has a potassium less than 3. Her sodium was also slightly low. The patient has been typed and screened. She is hemodynamically stable at this time. Patient will be admitted to the hospital. She has been started on Protonix bolus and drip. There is a call out to the [facility] [address] hospitalist. Medical Screen Exam Complete: Yes Emergency Medical Condition: Yes Differential Diagnosis Differential Diagnosis: Recurrent GI bleed versus upper bleed versus lower bleed versus gastritis versus metabolic derangement Lab Data Result diagrams: 08/10/18 18:06 08/10/18 18:06 Lab Results 08/10/18 08/10/18 08/10/18 Range/Units 18:06 18:06 18:06 WBC 8.7 (4.0-11.0) th/mm3 RBC 2.71 L (4.00-5.30) mil/mm3 Hgb 7.4 L (11.6-15.3) gm/dL Hct 22.1 L (35.0-46.0) % MCV 81.6 (80.0-100.0) fL MCH 27.2 (27.0-34.0) pg MCHC 33.3 (32.0-36.0) % RDW 15.9 (11.6-17.2) % Plt Count 339 D (150-450) th/mm3 MPV 7.9 (7.0-11.0) fL Neut % (Auto) 76.5 H (16.0-70.0) % Lymph % (Auto) 10.6 (9.0-44.0) % [place] % (Auto) 11.4 H (0.0-8.0) % Eos % (Auto) 0.6 (0.0-4.0) % Baso % (Auto) 0.9 (0.0-2.0) % Neut # (Auto) 6.7 (1.8-7.7) th/mm3 Lymph # (Auto) 0.9 L (1.0-4.8) th/mm3 [place] # (Auto) 1.0 H (0.0-0.9) th/mm3 Eos # (Auto) 0.0 (0.0-0.4) th/mm3 Baso # (Auto) 0.1 (0.0-0.2) th/mm3 WBC Differential . Differential Comment Auto diff final PT 10.8 (9.8-11.6) sec INR 1.1 Ratio APTT 22.1 L (23.4-31.7) sec Sodium 131 L (136-145) meq/L Potassium 2.4 L* (3.5-5.1) meq/L Chloride 96 L (98-107) meq/L Carbon Dioxide 24.2 (21.0-32.0) meq/L Anion Gap 11 (5-15) meq/L BUN 14 (7-18) mg/dL Creatinine 0.66 (0.50-1.00) mg/dL Estimated GFR 86 L (>89) mL/min Random Glucose 133 H (74-106) mg/dL Calcium 7.8 L (8.5-10.1) mg/dL Total Bilirubin 0.3 (0.2-1.0) mg/dL AST 7 L (15-37) U/L ALT 11 (10-53) U/L Alkaline Phosphatase 62 (45-117) U/L Total Protein 5.8 L (6.4-8.2) g/dL Albumin 3.0 L (3.4-5.0) g/dL Blood Type 08/10/18 Range/Units 18:06 WBC (4.0-11.0) th/mm3 RBC (4.00-5.30) mil/mm3 Hgb (11.6-15.3) gm/dL Hct (35.0-46.0) % MCV (80.0-100.0) fL MCH (27.0-34.0) pg MCHC (32.0-36.0) % RDW (11.6-17.2) % Plt Count (150-450) th/mm3 MPV (7.0-11.0) fL Neut % (Auto) (16.0-70.0) % Lymph % (Auto) (9.0-44.0) % [place] % (Auto) (0.0-8.0) % Eos % (Auto) (0.0-4.0) % Baso % (Auto) (0.0-2.0) % Neut # (Auto) (1.8-7.7) th/mm3 Lymph # (Auto) (1.0-4.8) th/mm3 [place] # (Auto) (0.0-0.9) th/mm3 Eos # (Auto) (0.0-0.4) th/mm3 Baso # (Auto) (0.0-0.2) th/mm3 WBC Differential Differential Comment PT (9.8-11.6) sec INR Ratio APTT (23.4-31.7) sec Sodium (136-145) meq/L Potassium (3.5-5.1) meq/L Chloride (98-107) meq/L Carbon Dioxide (21.0-32.0) meq/L Anion Gap (5-15) meq/L BUN (7-18) mg/dL Creatinine (0.50-1.00) mg/dL Estimated GFR (>89) mL/min Random Glucose (74-106) mg/dL Calcium (8.5-10.1) mg/dL Total Bilirubin (0.2-1.0) mg/dL AST (15-37) U/L ALT (10-53) U/L Alkaline Phosphatase (45-117) U/L Total Protein (6.4-8.2) g/dL Albumin (3.4-5.0) g/dL Blood Type O Negative Discharge Plan Discharge Disposition Patient Disposition: ED Admit(ED Internal Use Only) Discharge Order Discharge Orders: ED Use Only Admit Order (Routine); Ordered 08/10/18 Ordered By: Fady Mayen Discharge Details Diagnosis: GI (gastrointestinal bleed), Anemia, Melena, Hypokalemia, Acute hyponatremia Physicians Team ED Provider: Fady Mayen Primary Care Provider: Anam Klein Rxs /Orders / Referrals /Forms Prescriptions: No Action clopidogrel [Plavix] 75 mg Tablet 75 mg PO DAILY RF: 0 amlodipine 10 mg Tablet 10 mg PO DAILY RF: 0 ranitidine HCl 150 mg Tablet 2 mg/kg PO BID RF: 0 memantine 10 mg Tablet 10 mg PO BID RF: 0 topiramate 50 mg Tablet 1 mg/kg PO BID RF: 0 potassium chloride 20 mEq Tablet Extended Release 20 meq PO BID RF: 0 pantoprazole 40 mg Tablet,Delayed Release (Dr/Ec) 40 mg PO BID Qty: 60 RF: 0 sucralfate [Carafate] 100 mg/mL Suspension 5 ml PO QID Qty: 1 RF: 0 Status ED Status: With Doctor
--- NOTE | 2018-08-10 20:37 | XR ---
EXAM DATE: 08/10/2018 8:15 PM EST AGE/SEX: 82 years / Female INDICATIONS: Blood loss. CLINICAL DATA: This is the patient's initial encounter. Patient reports that signs and symptoms have been present for 1 day and indicates a pain score of 1/10. MEDICAL/SURGICAL HISTORY: . Dementia. Hypertension. Liver Hemorrhage. None. None. COMPARISON: . FINDINGS: The abdominal bowel gas pattern is normal. No abnormal masses, calcifications, or organomegaly is s een. The osseous structures are unremarkable. Degenerative changes lower lumbar spine. CONCLUSION: No acute abnormality. Electronically signed by: Howard Terry MD 08/10/2018 8:36 PM EST
[2018-08-10] MEDS: Potassium Chlor 20 mEq Premix 20 MEQ/100 ML PIGGYBACK IV.SIG SCH (23:06)
[2018-08-11 00:39] LABS: Hematocrit 19.2 % (35.0-46.0); Hemoglobin 6.5 gm/dL (11.6-15.3)
[2018-08-11] MEDS: Acetaminophen 325 MG Tablet PO PRN ×2 (01:55→05:35)
[2018-08-11] MEDS: Potassium Chlor 20 mEq Premix 20 MEQ/100 ML PIGGYBACK IV.SIG SCH ×2 (02:00→05:21)
[2018-08-11] MEDS ORDERED: Sodium Chlor 0.9% Inj 250 ML IV.SIG SCH (02:00)
--- NOTE | 2018-08-11 08:30 | P.HPIM ---
History of Present Illness Primary Care Physician: Anam Klein DO Chief Complaint: rectal bleed History of Present Illness: patient is a 82 y/o female with history of hypertension, carotid stenosis, atrial fibrillation and dementia who was recently discharged from the hospital with anemia presented back to ER with melanotic stools which has been going on for few days. she denies any abdominal pain,nausea,vomiting, chest pain, dizziness or sob. she was receiving blood transfusion at time of my evaluation. Inpatient Certification Inpatient Certification: I certify that the inpatient services were ordered in accordance with Medicare regulations governing the order. This includes certification that hospital inpatient services are reasonable and necessary and in the case of services not specified as inpatient-only under 42 CFR 419.22(n), that they are appropriately provided as inpatient services in accordance to with the 2-midnight benchmark under 43 CFR 412.3(e) Estimated Total Length of Stay (Days): 3 Plans for Post Hospital Care: Not yet determined Review of Systems Review of Systems: all other systems reviewed are negative PENDING SALE TO [facility] Medical History Medical History Atrial fibrillation (Acute) Carotid stenosis (Acute) Dementia (Acute) High blood pressure (Acute) Hyperlipidemia (Acute) Surgical History Surgical History History of colostomy reversal (Acute) History of tonsillectomy (Acute) Family History Family History Other Family history unknown Social History Social History Substance History: No History of Abuse Second Hand Smoke Exposure: No Smoking Status: Never smoker How Often Do You Have a Drink Containing Alcohol: Never Recent Travel in [place] within the Last 8 Weeks: No Recent Out of Country Travel within the Last 8 Weeks: No Immunization History Tetanus Immunization: Unsure Medications and Allergies Allergies Allergy/AdvReac Type Severity Reaction Status Date / Time Sulfa (Sulfonamide Allergy Severe Swelling Verified 08/10/18 17:14 Antibiotics) morphine AdvReac Hallucinati Verified 08/10/18 17:38 ons Home Medications Medication Instructions Recorded Confirmed Type amlodipine 10 mg PO DAILY 08/05/18 08/10/18 History clopidogrel [Plavix] 75 mg PO DAILY 08/05/18 08/10/18 History memantine 10 mg PO BID 08/05/18 08/10/18 History potassium chloride 20 meq PO BID 08/05/18 08/10/18 History ranitidine HCl 2 mg/kg PO BID 08/05/18 08/10/18 History topiramate 1 mg/kg PO BID 08/05/18 08/10/18 History Active Medications: Active Medications Pantoprazole Sodium 80 mg/ (Sodium Chloride) 100 mls @ 10 mls/hr IV.CONT CONT SANDRA Sodium Chloride (Ns Inj) 1,000 mls @ 125 mls/hr IV.CONT .Q8H SANDRA Last Admin: 08/10/18 18:48 Dose: 125 mls/hr Sodium Chloride (Ns Inj) 250 mls @ 15 mls/hr IV.SIG ONCE SANDRA Stop: 08/11/18 18:39 Last Admin: 08/11/18 05:36 Dose: 15 mls/hr Sodium Chloride (Ns Flush) 2 ml IV.FLUSH BID [facility] Last Admin: 08/10/18 23:07 Dose: 2 ml Sodium Chloride (Ns Flush) 2 ml IV.FLUSH PRN PRN PRN Reason: FLUSH AFTER USING IV ACCESS Physical Exam Vital signs: Last Vital Signs Temp 98.2 F 08/11/18 06:20 Pulse 75 08/11/18 05:08 Resp 17 08/11/18 06:20 BP 134/60 08/11/18 06:20 Pulse Ox 98 08/11/18 06:20 Intake & Output 08/09/18 08/10/18 08/11/18 08/12/18 06:59 06:59 06:59 06:59 Intake Total 200 / 200 Balance 200 / 200 Weight 58.9 kg Constitutional no acute distress Routine HEENT Exam Eye: Present PERRL Routine Neck Exam Present supple Routine Respiratory Exam Present CTA bilaterally Routine Cardiovascular Exam Present RRR Routine Abdominal Exam Present soft Routine Extremities Exam Comments: no pedal edema. Routine Neurological Exam Present alert and oriented X3 Results Labs CBC & Chem 7: 08/11/18 00:01 08/10/18 18:06 Imaging Impressions Abdomen X-Ray 08/10/18 17:55 CONCLUSION: No acute abnormality. Caprini VTE Risk Assessment Caprini VTE Risk Assessment: Moderate/High Risk (score >= 2) VTE Pharmacological Exception Reason: Active bleeding Caprini Risk Assessment Model: Point Value = 1 Point Value = 2 Point Value = 3 Point Value = 5 Age 41-60 Minor surgery BMI > 25 kg/m2 Swollen legs Varicose veins or History of unexplained or recurrent spontaneous Oral contraceptives or hormone replacement Sepsis (< 1 month) Serious lung disease, including pneumonia (< 1 month) Abnormal pulmonary function Acute myocardial infarction Congestive heart failure (< 1 month) History of inflammatory bowel disease Medical patient at bed rest Age 61-74 Arthroscopic surgery Major open surgery (> 45 min) Laparoscopic surgery (> 45 min) Malignancy Confined to bed (> 72 hours) Immobilizing plaster cast Central venous access Age >= 75 History of VTE Family history of VTE Factor V Leiden Prothrombin [id number] Lupus anticoagulant Anticardiolipin antibodies Elevated serum homocysteine Heparin-induced thrombocytopenia Other congenital or acquired thrombophilia Stroke (< 1 month) Elective arthroplasty Hip, pelvis, or leg fracture Acute spinal cord injury (< 1 month) Prophylaxis Regimen: Total Risk Factor Score Risk Level Prophylaxis Regimen 0-1 Low Early ambulation 2 Moderate Order ONE of the following: *Sequential Compression Device (SCD) *Heparin 5000 units SQ BID 3-4 Higher Order ONE of the following medications: *Heparin 5000 units SQ TID *Enoxaparin/Lovenox 40 mg SQ daily (WT < 150 kg, CrCl > 30 mL/min) *Enoxaparin/Lovenox 30 mg SQ daily (WT < 150 kg, CrCl > 10-29 mL/min) *Enoxaparin/Lovenox 30 mg SQ BID (WT < 150 kg, CrCl > 30 mL/min) AND/OR *Sequential Compression Device (SCD) 5 or more Highest Order ONE of the following medications: *Heparin 5000 units SQ TID (Preferred with Epidurals) *Enoxaparin/Lovenox 40 mg SQ daily (WT < 150 kg, CrCl > 30 mL/min) *Enoxaparin/Lovenox 30 mg SQ daily (WT < 150 kg, CrCl > 10-29 mL/min) *Enoxaparin/Lovenox 30 mg SQ BID (WT < 150 kg, CrCl > 30 mL/min) AND *Sequential Compression Device (SCD) Assessment and Plan Plan A/P - GI bleed s/p EGD with non-bleeding gastric ulcer- continue with PPI- f/u biopsy- GI following. -anemia duet to GI bleed PRBC transfusion in process- will continue to monitor H/H closely. -hypertension/a-fib/carotid stenosis; hold BP meds/antiplatelets for now- will monitor. -Hypokalemia; replaced; will monitor; level today pending. -DVT prophylaxis ith SCD's- no chemical prophylaxis due to GI bleed. Discussed Condition With: the patient. Discharge Planning: when medically stable.
[2018-08-11] MEDS: Sod Chloride 0.9% Inj 1,000 ML IV.CONT SCH ×3 (09:23→20:31)
[2018-08-11] MEDS: Pantoprazole Inj 80 MG in Sodium Chlor 0.9% Inj 100 ML IV.CONT SCH ×2 (09:57→22:11)
[2018-08-11 10:39] LABS: Baso % (Auto) 0.5 % (0.0-2.0); Eos # (Auto) 0.1 th/mm3 (0.0-0.4); Eos % (Auto) 1.3 % (0.0-4.0); Hematocrit 30.7 % (35.0-46.0); Hemoglobin 10.7 gm/dL (11.6-15.3); Lymph # (Auto) 0.6 th/mm3 (1.0-4.8); Lymph % (Auto) 6.9 % (9.0-44.0); Mean Corpuscular HGB Conc 34.9 % (32.0-36.0); Mean Corpuscular Hemoglobin 29.1 pg (27.0-34.0); Mean Corpuscular Volume 83.4 fL (80.0-100.0); Mean Platelet Volume 7.3 fL (7.0-11.0); Mono # (Auto) 0.9 th/mm3 (0.0-0.9); Mono % (Auto) 10.6 % (0.0-8.0); Neut # (Auto) 6.8 th/mm3 (1.8-7.7); Neut % (Auto) 80.7 % (16.0-70.0); Platelet Count 248 th/mm3 (150-450); Red Blood Count 3.68 mil/mm3 (4.00-5.30); Red Cell Distribution Width 15.3 % (11.6-17.2); White Blood Count 8.4 th/mm3 (4.0-11.0)
[2018-08-11 11:08] LABS: Anion Gap 9 meq/L (5-15); Aspartate Aminotransferase 9 U/L (15-37); Blood Urea Nitrogen 8 mg/dL (7-18); Calcium 7.6 mg/dL (8.5-10.1); Carbon Dioxide 25.4 meq/L (21.0-32.0); Chloride 107 meq/L (98-107); Glomerular Filtration Rate 86 mL/min (>89); Glucose,Random 117 mg/dL (74-106); Potassium 3.2 meq/L (3.5-5.1); Sodium 141 meq/L (136-145)
[2018-08-11 11:10] LABS: Alanine Aminotransferase 10 U/L (10-53); Alkaline Phosphatase 69 U/L (45-117); Total Protein 5.6 g/dL (6.4-8.2)
--- NOTE | 2018-08-11 11:28 | P.CONGI ---
History of Present Illness Consult date: 08/11/18 Consult reason: GI bleed Chief complaint: GI Bleed, anemia, hypolamenia, hyponatremia, History of Present Illness: This patient is an 82-year-old female with past medical history significant for GI bleeding, atrial fibrillation as per documentation, last dose of Plavix taken on 08/10/2018, carotid stenosis, high blood pressure, hyperlipidemia and dementia. Patient was brought in to [facility] on 08/10/2018 by her who reported patient has had black tarry stools for 3 days. Patient was admitted to [facility] for evaluation and transfusion. Upon arrival to hospital, patient's hemoglobin noted to be 6.5 hematocrit 19.2. Patient endorses generalized weakness but denies any nausea vomiting or abdominal pain upon consultation. 08/05/2018 EGD done and revealed the following findings= esophageal mucosa normal, medium nonbleeding deep, round, clean-based ulcer in the gastric antrum, normal duodenum. Our service has been consulted to evaluate patient for GI bleeding. Review of Systems All other systems reviewed negative except as stated in HPI PMFSH - History History Provided By: Patient - Medical History Medical History: Medical History (Last Reviewed 08/11/18 @ 08:32 by Eric Mares MD) Atrial fibrillation Carotid stenosis Dementia High blood pressure Hyperlipidemia - Surgical History Surgical History: Surgical History (Last Reviewed 08/11/18 @ 08:32 by Eric Mares MD) History of colostomy reversal History of tonsillectomy - Family History Family History: Family History (Last Reviewed 08/11/18 @ 08:32 by Eric Mares MD) Other Family history unknown - Tobacco History Second Hand Smoke Exposure: No Smoking Status: Never smoker - Alcohol History How Often Do You Have a Drink Containing Alcohol: Never - Substance Use History Substance History: No History of Abuse - Travel History Recent Travel in the [place] Within the Last 8 Weeks: No Recent Travel Out of the Country Within the Last 8 Weeks: No - Immunization History Tetanus Immunization: Unsure Medications and Allergies Active Medications: Active Medications Pantoprazole Sodium 80 mg/ (Sodium Chloride) 100 mls @ 10 mls/hr IV.CONT CONT SANDRA Last Admin: 08/11/18 09:57 Dose: 10 mls/hr Sodium Chloride (Ns Inj) 1,000 mls @ 125 mls/hr IV.CONT .Q8H SANDRA Last Admin: 08/11/18 09:55 Dose: 125 mls/hr Sodium Chloride (Ns Inj) 250 mls @ 15 mls/hr IV.SIG ONCE SANDRA Stop: 08/11/18 18:39 Last Admin: 08/11/18 05:36 Dose: 15 mls/hr Sodium Chloride (Ns Flush) 2 ml IV.FLUSH BID SANDRA Last Admin: 08/10/18 23:07 Dose: 2 ml Sodium Chloride (Ns Flush) 2 ml IV.FLUSH PRN PRN PRN Reason: FLUSH AFTER USING IV ACCESS Allergies Allergy/AdvReac Type Severity Reaction Status Date / Time Sulfa (Sulfonamide Allergy Severe Swelling Verified 08/10/18 17:14 Antibiotics) morphine AdvReac Hallucinati Verified 08/10/18 17:38 ons Home Medications Medication Instructions Recorded Confirmed Type amlodipine 10 mg PO DAILY 08/05/18 08/10/18 History clopidogrel [Plavix] 75 mg PO DAILY 08/05/18 08/10/18 History memantine 10 mg PO BID 08/05/18 08/10/18 History potassium chloride 20 meq PO BID 08/05/18 08/10/18 History ranitidine HCl 2 mg/kg PO BID 08/05/18 08/10/18 History topiramate 1 mg/kg PO BID 08/05/18 08/10/18 History Exam Vital signs: Vital Signs 08/10/18 17:13 08/10/18 17:40 08/10/18 19:00 Temperature 97.3 F L Pulse Rate 83 67 75 Respiratory Rate 20 20 18 Blood Pressure 156/67 H 140/67 136/66 Pulse Oximetry 100 100 100 08/10/18 22:03 08/11/18 00:00 08/11/18 02:23 Temperature 97.4 F L 97.4 F L 98.0 F Pulse Rate 81 69 76 Respiratory Rate 18 18 Blood Pressure 146/65 H 116/56 L 136/65 Pulse Oximetry 100 100 99 08/11/18 03:23 08/11/18 05:08 08/11/18 06:20 Temperature 97.9 F 98.1 F 98.2 F Pulse Rate 75 Respiratory Rate 18 17 Blood Pressure 138/65 144/63 H 134/60 Pulse Oximetry 99 98 98 08/11/18 08:00 08/11/18 09:03 Temperature 98.1 F Pulse Rate 80 Respiratory Rate 20 Blood Pressure 158/70 H Pulse Oximetry 98 98 Intake & Output 08/10/18 08/11/18 08/11/18 18:59 06:59 18:59 Intake Total 600 / 600 100 / 100 Balance 600 / 600 100 / 100 Weight 58.967 kg 58.9 kg Intake: IV 200 / 200 100 / 100 KCl 20 mEq Premix Inj 20 meq In 200 / 200 100 / 100 100 ml @ 50 mls/hr IV.SIG Q2H SANDRA Rx#:[id number] Oral 0 / 0 Other 400 / 400 Intake (Blood Product) Amt 0 / 0 Rbc As-3 Leukoreduced Unit 0 / 0 [id number] Other: # Voids 7 # Bowel Movements 1 - Constitutional no acute distress - Routine HEENT Exam Head: Present: normocephalic - Routine Respiratory Exam Present: CTA bilaterally. Absent: accessory muscle use - Routine Cardiovascular Exam Present: irregularly irregular - Routine Abdominal Exam Present: soft, normoactive bowel sounds. Absent: tenderness, distended, guarding, firm - Routine Extremities Exam Absent: edema - Routine Skin Exam Present: dry, pallor, warm - Routine Neurological Exam Present: alert, altered mental status Results - Labs CBC & Chem 7: 08/11/18 10:26 08/11/18 10:26 Labs: Laboratory Results - last 24 hr 08/10/18 08/10/18 08/10/18 18:06 18:06 18:06 WBC 8.7 RBC 2.71 L Hgb 7.4 L Hct 22.1 L MCV 81.6 MCH 27.2 MCHC 33.3 RDW 15.9 Plt Count 339 D MPV 7.9 Neut % (Auto) 76.5 H Lymph % (Auto) 10.6 [place] % (Auto) 11.4 H Eos % (Auto) 0.6 Baso % (Auto) 0.9 Neut # (Auto) 6.7 Lymph # (Auto) 0.9 L [place] # (Auto) 1.0 H Eos # (Auto) 0.0 Baso # (Auto) 0.1 WBC Differential . Differential Comment Auto diff final PT 10.8 INR 1.1 APTT 22.1 L Sodium 131 L Potassium 2.4 L* Chloride 96 L Carbon Dioxide 24.2 Anion Gap 11 BUN 14 Creatinine 0.66 Estimated GFR 86 L Random Glucose 133 H Calcium 7.8 L Magnesium Total Bilirubin 0.3 AST 7 L ALT 11 Alkaline Phosphatase 62 Total Protein 5.8 L Albumin 3.0 L Blood Type Antibody Screen Ab Screen Tube Method Crossmatch Bld Prod Order Comment 08/10/18 08/10/18 08/11/18 18:06 18:06 00:01 WBC RBC Hgb 6.5 L* Hct 19.2 L* MCV MCH MCHC RDW Plt Count MPV Neut % (Auto) Lymph % (Auto) [place] % (Auto) Eos % (Auto) Baso % (Auto) Neut # (Auto) Lymph # (Auto) [place] # (Auto) Eos # (Auto) Baso # (Auto) WBC Differential Differential Comment PT INR APTT Sodium Potassium Chloride Carbon Dioxide Anion Gap BUN Creatinine Estimated GFR Random Glucose Calcium Magnesium 1.5 Total Bilirubin AST ALT Alkaline Phosphatase Total Protein Albumin Blood Type O Negative Antibody Screen Positive H Ab Screen Tube Method Positive Crossmatch See Detail Bld Prod Order Comment 08/11/18 08/11/18 10:26 10:26 WBC 8.4 RBC 3.68 L Hgb 10.7 L D Hct 30.7 L MCV 83.4 MCH 29.1 MCHC 34.9 RDW 15.3 Plt Count 248 MPV 7.3 Neut % (Auto) 80.7 H Lymph % (Auto) 6.9 L [place] % (Auto) 10.6 H Eos % (Auto) 1.3 Baso % (Auto) 0.5 Neut # (Auto) 6.8 Lymph # (Auto) 0.6 L [place] # (Auto) 0.9 Eos # (Auto) 0.1 Baso # (Auto) 0.0 WBC Differential . Differential Comment Auto diff final PT INR APTT Sodium 141 D Potassium 3.2 L D Chloride 107 D Carbon Dioxide 25.4 Anion Gap 9 BUN 8 Creatinine 0.66 Estimated GFR 86 L Random Glucose 117 H Calcium 7.6 L Magnesium Total Bilirubin 1.7 H AST 9 L ALT 10 Alkaline Phosphatase 69 Total Protein 5.6 L Albumin 3.0 L Blood Type Antibody Screen Ab Screen Tube Method Crossmatch Bld Prod Order Comment - Imaging Impressions Abdomen X-Ray 08/10/18 17:55 CONCLUSION: No acute abnormality. Assessment and Plan (1) GI (gastrointestinal bleed) Status: Acute Code(s): K92.2 - Gastrointestinal hemorrhage, unspecified (2) Anemia Status: Acute Code(s): D64.9 - Anemia, unspecified (3) Melena Status: Acute Code(s): K92.1 - Melena - Plan This patient is an 82-year-old female with past medical history significant for GI bleeding, atrial fibrillation as per documentation, last dose of Plavix taken on 08/10/2018, carotid stenosis, high blood pressure, hyperlipidemia and dementia. Patient was brought in to [facility] on 08/10/2018 by her who reported patient has had black tarry stools for 3 days. Patient was admitted to [facility] for evaluation and transfusion. Upon arrival to hospital, patient's hemoglobin noted to be 6.5 hematocrit 19.2. Patient endorses generalized weakness but denies any nausea vomiting or abdominal pain upon consultation. 08/05/2018 EGD done and revealed the following findings= esophageal mucosa normal, medium nonbleeding deep, round, clean-based ulcer in the gastric antrum, normal duodenum. Our service has been consulted to evaluate patient for GI bleeding. GI bleed Anemia Melena stools Patient admitted to [facility] last evening for reported black tarry stools for the last 3 days. Upon admission, hemoglobin 6.5 hematocrit 19.2. Patient then transfused with 2 units of packed RBCs. History of atrial fibrillation, on Plavix. Last dose 08/10/2018. -08/11/2018 posttransfusion hemoglobin 10.7 hematocrit 30.7 platelet count 248 -08/05/2018 EGD revealed the following findings= esophagus-the mucosa of the esophagus appeared normal, stomach-medium size nonbleeding, deep, round and clean-based ulcer with a pigmented spot was found in the gastric antrum. Duodenum-duodenal mucosa appeared normal in the entire duodenum. Plan -N.p.o. -Obtain consent for EGD -EGD today -Monitor for bleeding-pain close attention to hemoglobin and hematocrit -Transfuse as needed -Continue pantoprazole infusion -Hold anticoagulants -Possible bleeding scan -Possible need for colonoscopy, based on results of upper endoscopy -Supportive care -Further recommendations to follow This patient has been seen by myself and Dr. Ellis this note is written on his behalf - Attending Attestation Dr. Ellis
[2018-08-11] MEDS: Potassium Chlor 20 mEq Premix 20 MEQ/100 ML PIGGYBACK IV.SIG ONE ×2 (14:32→20:31)
[2018-08-11 15:06] LABS: Hematocrit 28.4 % (35.0-46.0); Hemoglobin 10.3 gm/dL (11.6-15.3)
[2018-08-11] MEDS ORDERED: PEG 3350/E-Lyte Soln 4000 ML Bottle PO ONE (16:00)
--- NOTE | 2018-08-11 18:42 | NM ---
EXAM DATE: 08/11/2018 6:29 PM EST AGE/SEX: 82 years / Female INDICATIONS: Rectal bleeding. Anemia. CLINICAL DATA: This is the patient's initial encounter. Patient reports that signs and symptoms have been present for 1 day and indicates a pain score of 0/10. MEDICAL/SURGICAL HISTORY: Hypertension. Dementia. Tonsillectomy. [place] [facility] [place] 08/05/2018. . TECHNIQUE: Following the modified in vitro labeling of autologous red cells, dynamic continuous image s were acquired for two hours. ?? DOSE: 20.1 mCi Tc 99m Ultratag Labeled Red Blood Cells IV IMAGING TIME: 2 hr FINDINGS: Suboptimal examination secondary to motion artifact during the exam. Biodistribution: There is a very good labeling of red cells without significant uptake in the gastri c wall. There is good delineation of the blood pool of the spleen and abdominal vessels. Bleeding: No episodes of active GI bleeding are observed during two hours of continuous observation . CONCLUSION: 1. Suboptimal study secondary to motion artifact. 2. No evidence of acute bleeding. Electronically signed by: Alen Pompa MD 08/11/2018 6:41 PM EST
[2018-08-11 21:41] LABS: Hematocrit 30.9 % (35.0-46.0); Hemoglobin 10.7 gm/dL (11.6-15.3)
[2018-08-12 03:34] LABS: Baso # (Auto) 0.1 th/mm3 (0.0-0.2); Baso % (Auto) 0.7 % (0.0-2.0); Eos # (Auto) 0.2 th/mm3 (0.0-0.4); Eos % (Auto) 2.3 % (0.0-4.0); Hematocrit 28.5 % (35.0-46.0); Hemoglobin 9.8 gm/dL (11.6-15.3); Lymph # (Auto) 0.6 th/mm3 (1.0-4.8); Lymph % (Auto) 7.6 % (9.0-44.0); Mean Corpuscular HGB Conc 34.2 % (32.0-36.0); Mean Corpuscular Hemoglobin 28.4 pg (27.0-34.0); Mean Platelet Volume 7.4 fL (7.0-11.0); Mono # (Auto) 0.7 th/mm3 (0.0-0.9); Mono % (Auto) 9.5 % (0.0-8.0); Neut # (Auto) 6.3 th/mm3 (1.8-7.7); Neut % (Auto) 79.9 % (16.0-70.0); Platelet Count 264 th/mm3 (150-450); Red Blood Count 3.43 mil/mm3 (4.00-5.30); Red Cell Distribution Width 15.1 % (11.6-17.2); White Blood Count 7.9 th/mm3 (4.0-11.0)
[2018-08-12 03:35] LABS: Hematocrit 28.3 % (35.0-46.0); Hemoglobin 9.7 gm/dL (11.6-15.3)
[2018-08-12 03:49] LABS: Anion Gap 8 meq/L (5-15); Blood Urea Nitrogen 9 mg/dL (7-18); Calcium 7.5 mg/dL (8.5-10.1); Carbon Dioxide 24.3 meq/L (21.0-32.0); Chloride 108 meq/L (98-107); Glomerular Filtration Rate Greater Than 89 mL/min (>89); Glucose,Random 116 mg/dL (74-106); Sodium 140 meq/L (136-145)
[2018-08-12] MEDS: Sod Chloride 0.9% Inj 1,000 ML IV.CONT SCH ×4 (04:22→19:00)
[2018-08-12] MEDS: amLODIPine 10 MG Tablet PO SCH (10:24)
[2018-08-12] MEDS ORDERED: Pantoprazole Inj 80 MG in Sodium Chlor 0.9% Inj 100 ML IV.CONT SCH (11:00)
[2018-08-12 11:29] LABS: Hematocrit 28.7 % (35.0-46.0); Hemoglobin 10.2 gm/dL (11.6-15.3)
--- NOTE | 2018-08-12 13:18 | P.PNIM ---
Subjective Interval history: Patient combines of black stools. Family members at bedside. Physical Exam Vital signs: Vital Signs 08/11/18 17:43 08/11/18 20:00 08/12/18 00:00 Temperature 98.1 F 96.9 F L Pulse Rate 67 70 Respiratory Rate 17 16 Blood Pressure 141/61 H 176/70 H Pulse Oximetry 97 99 100 08/12/18 04:00 08/12/18 08:00 Temperature 97.2 F L 97.2 F L Pulse Rate 76 64 Respiratory Rate 16 16 Blood Pressure 160/72 H 179/68 H Pulse Oximetry 96 97 Intake & Output 08/11/18 08/12/18 08/12/18 18:59 06:59 18:59 Intake Total 1200 / 1200 1450 / 1450 900 / 900 Balance 1200 / 1200 1450 / 1450 900 / 900 Weight 63 kg Intake: IV 1100 / 1100 1450 / 1450 900 / 900 Protonix Inj 80 MG In NS Inj 100 / 100 100 / 100 100 ML @ 10 mls/hr IV.CONT CONT SANDRA Rx#:[id number] NS Inj 1,000 ML @ 125 mls/hr IV 1000 / 1000 1000 / 1000 800 / 800 .CONT .Q8H SANDRA Rx#:[id number] KCl 20 mEq Premix Inj 20 meq In 100 / 100 100 / 100 100 ml @ 50 mls/hr IV.SIG ONCE ONE Rx#:[id number] NS Inj 250 ML @ 15 mls/hr IV. 250 / 250 SIG ONCE SANDRA Rx#:[id number] Anesthesia Amount 100 / 100 Intake (Blood Product) Amt 0 / 0 Rbc As-3 Leukoreduced Unit 0 / 0 [id number] Other: # Voids 6 Date of Last Bowel Movement 08/12/18 08/12/18 # Bowel Movements 8 Narrative: General patient complains of black stools HEENT extraocular movements are intact, clear oropharyngeal mucosa, no JVD Cardiovascular S1-S2 audible, RRR, no murmurs rubs or gallops Respiratory clear to auscultation bilaterally Abdomen soft, nontender, nondistended, normal bowel sounds Extremities no edema 2+ distal pulses in bilateral upper and lower extremities Neuro cranial nerves II through XII intact Results - Labs CBC & Chem 7: 08/12/18 11:12 08/12/18 03:22 Laboratory Results - last 24 hr 08/10/18 08/11/18 08/11/18 18:06 14:50 21:28 WBC RBC Hgb 10.3 L 10.7 L Hct 28.4 L 30.9 L MCV MCH MCHC RDW Plt Count MPV Neut % (Auto) Lymph % (Auto) [place] % (Auto) Eos % (Auto) Baso % (Auto) Neut # (Auto) Lymph # (Auto) [place] # (Auto) Eos # (Auto) Baso # (Auto) WBC Differential Differential Comment Sodium Potassium Chloride Carbon Dioxide Anion Gap BUN Creatinine Estimated GFR Random Glucose Calcium Blood Type O Negative Antibody Screen Positive H Ab Screen Tube Method Positive Crossmatch See Detail Bld Prod Order Comment 08/12/18 08/12/18 08/12/18 03:22 03:22 03:22 WBC 7.9 RBC 3.43 L Hgb 9.8 L 9.7 L Hct 28.5 L 28.3 L MCV 83.0 MCH 28.4 MCHC 34.2 RDW 15.1 Plt Count 264 MPV 7.4 Neut % (Auto) 79.9 H Lymph % (Auto) 7.6 L [place] % (Auto) 9.5 H Eos % (Auto) 2.3 Baso % (Auto) 0.7 Neut # (Auto) 6.3 Lymph # (Auto) 0.6 L [place] # (Auto) 0.7 Eos # (Auto) 0.2 Baso # (Auto) 0.1 WBC Differential . Differential Comment Auto diff final Sodium 140 Potassium 3.0 L Chloride 108 H Carbon Dioxide 24.3 Anion Gap 8 BUN 9 Creatinine 0.51 Estimated GFR Greater than 89 Random Glucose 116 H Calcium 7.5 L Blood Type Antibody Screen Ab Screen Tube Method Crossmatch Bld Prod Order Comment 08/12/18 11:12 WBC RBC Hgb 10.2 L Hct 28.7 L MCV MCH MCHC RDW Plt Count MPV Neut % (Auto) Lymph % (Auto) [place] % (Auto) Eos % (Auto) Baso % (Auto) Neut # (Auto) Lymph # (Auto) [place] # (Auto) Eos # (Auto) Baso # (Auto) WBC Differential Differential Comment Sodium Potassium Chloride Carbon Dioxide Anion Gap BUN Creatinine Estimated GFR Random Glucose Calcium Blood Type Antibody Screen Ab Screen Tube Method Crossmatch Bld Prod Order Comment - Imaging Impressions GI Bleed Scan Nuclear Medicine 08/11/18 00:00 CONCLUSION: 1. Suboptimal study secondary to motion artifact. 2. No evidence of acute bleeding. Assessment and Plan - Plan This patient is an 82-year-old female with a diagnosis of hypertension, carotid stenosis, atrial fibrillation, and dementia. The patient presented to our facility with complaints of dark stools which has been ongoing for a few days. She denied having any abdominal pain or any other significant symptoms. She was evaluated in the emergency department and given her history and anemia patient was started on blood transfusions. 1. Symptomatic blood loss anemia secondary to GI bleed. Patient was given PRBC transfusions. Hemoglobin was as low as 6.5 during this admission. Hemoglobin 10.2 today after PRBC transfusions. And are within normal limits. Platelets 264. GI consulted to evaluate the patient. Plan is for the patient to undergo colonoscopy today, EGD showed nonbleeding gastric ulcer. We will follow-up results of the colonoscopy with GI. Continue PPI. 2. Hypokalemia Potassium level 3.0 today. Potassium will be replaced. 3. Hypertension 4. Atrial fibrillation 5. Carotid stenosis Patient currently having a GI bleed. We will hold antiplatelet agents. We will continue to monitor the patient's blood pressure. Continue Norvasc. We will adjust her blood pressure medications as needed. No pharmacotherapy for DVT prophylaxis patient currently has a GI bleed. SCDs.
[2018-08-12 17:21] LABS: Hematocrit 28.8 % (35.0-46.0); Hemoglobin 10.2 gm/dL (11.6-15.3)
[2018-08-12] MEDS: Pantoprazole Inj 40 MG Vial IV.PUSH SCH (21:04)
[2018-08-13 01:51] LABS: Hematocrit 26.9 % (35.0-46.0); Hemoglobin 9.5 gm/dL (11.6-15.3)
[2018-08-13] MEDS: Sod Chloride 0.9% Inj 1,000 ML IV.CONT SCH ×5 (03:16→21:20)
[2018-08-13] MEDS: Pantoprazole Inj 40 MG Vial IV.PUSH SCH ×2 (08:48→21:20)
[2018-08-13] MEDS: amLODIPine 10 MG Tablet PO SCH (08:48)
[2018-08-13 10:47] LABS: Hematocrit 26.2 % (35.0-46.0); Hemoglobin 9.1 gm/dL (11.6-15.3)
--- NOTE | 2018-08-13 10:47 | P.PNIM ---
Subjective Interval history: Patient in no acute distress. Denies abdominal pain. Physical Exam Vital signs: Vital Signs 08/12/18 12:00 08/12/18 12:47 08/12/18 16:00 Temperature 97.8 F 97.9 F 97.6 F Pulse Rate 70 68 80 Respiratory Rate 14 18 13 Blood Pressure 167/96 H 142/63 H 158/69 H Pulse Oximetry 97 100 99 08/12/18 20:00 08/12/18 20:18 08/13/18 00:00 Temperature 97.9 F 97.6 F Pulse Rate 84 74 Respiratory Rate 17 17 Blood Pressure 153/66 H 166/57 H Pulse Oximetry 99 97 98 08/13/18 04:00 08/13/18 08:00 Temperature 97.7 F 97.7 F Pulse Rate 109 H 92 H Respiratory Rate 17 15 Blood Pressure 165/73 H 159/70 H Pulse Oximetry 98 99 Intake & Output 08/12/18 08/13/18 08/13/18 18:59 06:59 18:59 Intake Total 1300 / 1300 1390 / 1390 Output Total 900 / 900 Balance 1300 / 1300 490 / 490 Weight 62.9 kg Intake: IV 950 / 950 1150 / 1150 Protonix Inj 80 MG In NS Inj 100 / 100 100 ML @ 10 mls/hr IV.CONT CONT SANDRA Rx#:[id number] NS Inj 1,000 ML @ 125 mls/hr IV 850 / 850 1150 / 1150 .CONT .Q8H SANDRA Rx#:[id number] Oral 0 / 0 240 / 240 Anesthesia Amount 350 / 350 Output: Urine 900 / 900 Other: # Voids 3 Date of Last Bowel Movement 08/12/18 08/13/18 08/13/18 # Bowel Movements 3 Narrative: General patient complains of black stools HEENT extraocular movements are intact, clear oropharyngeal mucosa, no JVD Cardiovascular S1-S2 audible, RRR, no murmurs rubs or gallops Respiratory clear to auscultation bilaterally Abdomen soft, nontender, nondistended, normal bowel sounds, no abd pain. Extremities no edema 2+ distal pulses in bilateral upper and lower extremities Neuro cranial nerves II through XII intact Results - Labs CBC & Chem 7: 08/13/18 01:20 08/12/18 03:22 Laboratory Results - last 24 hr 08/12/18 08/12/18 08/13/18 11:12 16:42 01:20 Hgb 10.2 L 10.2 L 9.5 L Hct 28.7 L 28.8 L 26.9 L Assessment and Plan - Plan This patient is an 82-year-old female with a diagnosis of hypertension, carotid stenosis, atrial fibrillation, and dementia. The patient presented to our facility with complaints of dark stools which has been ongoing for a few days. She denied having any abdominal pain or any other significant symptoms. She was evaluated in the emergency department and given her history and anemia patient was started on blood transfusions. 1. Acute Symptomatic blood loss anemia secondary to GI bleed. Patient was given PRBC transfusions. Hemoglobin was as low as 6.5 during this admission. Hemoglobin 9.5 today. And are within normal limits. Platelets 264. EGD showed a gastric ulcer not actively bleeding. Colonoscopy was done yesterday, will follow up with GI regarding the results and the plan from their standpoint. Plan is for the patient to undergo colonoscopy today, EGD showed nonbleeding gastric ulcer. Continue PPI. 2. Hypertension 3. Atrial fibrillation 4. Carotid stenosis Patient currently having a GI bleed. We will hold antiplatelet agents. We will continue to monitor the patient's blood pressure. Continue Norvasc. Metoprolol added to her blood pressure meds. We will adjust her blood pressure medications as needed. No pharmacotherapy for DVT prophylaxis patient currently has a GI bleed. SCDs.
[2018-08-13] MEDS: Metoprolol Tartrate 25 MG Tablet PO SCH ×2 (12:07→21:21)
--- NOTE | 2018-08-13 18:08 | P.PNGI ---
Subjective Interval history: Patient sitting up in bed Denies abdominal pain nausea vomiting Denies any noted bleeding Physical Exam Vital signs: Vital Signs 08/12/18 20:00 08/12/18 20:18 08/13/18 00:00 Temperature 97.9 F 97.6 F Pulse Rate 84 74 Respiratory Rate 17 17 Blood Pressure 153/66 H 166/57 H Pulse Oximetry 99 97 98 08/13/18 04:00 08/13/18 08:00 08/13/18 12:00 Temperature 97.7 F 97.7 F 97.8 F Pulse Rate 109 H 83 87 Respiratory Rate 17 15 14 Blood Pressure 165/73 H 159/70 H 164/76 H Pulse Oximetry 98 99 98 08/13/18 16:00 Temperature Pulse Rate 92 H Respiratory Rate Blood Pressure Pulse Oximetry Intake & Output 08/12/18 08/13/18 08/13/18 18:59 06:59 18:59 Intake Total 1300 / 1300 1390 / 1390 1000 / 1000 Output Total 900 / 900 Balance 1300 / 1300 490 / 490 1000 / 1000 Weight 62.9 kg Intake: IV 950 / 950 1150 / 1150 1000 / 1000 Protonix Inj 80 MG In NS Inj 100 / 100 100 ML @ 10 mls/hr IV.CONT CONT SANDRA Rx#:[id number] NS Inj 1,000 ML @ 125 mls/hr IV 850 / 850 1150 / 1150 1000 / 1000 .CONT .Q8H SANDRA Rx#:[id number] Oral 0 / 0 240 / 240 Anesthesia Amount 350 / 350 Output: Urine 900 / 900 Other: # Voids 3 Date of Last Bowel Movement 08/12/18 08/13/18 08/13/18 # Bowel Movements 3 - Constitutional no acute distress - Routine HEENT Exam Head: Present: normocephalic - Routine Neck Exam Present: supple - Routine Respiratory Exam Present: CTA bilaterally. Absent: accessory muscle use - Routine Cardiovascular Exam Present: RRR - Routine Abdominal Exam Present: soft, normoactive bowel sounds. Absent: tenderness, distended - Routine Skin Exam Present: dry, warm - Routine Neurological Exam Present: alert - Routine Psychiatric Exam Present: normal affect, cooperative Results - Labs CBC & Chem 7: 08/13/18 09:45 08/12/18 03:22 Laboratory Results - last 24 hr 08/13/18 08/13/18 01:20 09:45 Hgb 9.5 L 9.1 L Hct 26.9 L 26.2 L Assessment and Plan (1) GI (gastrointestinal bleed) Status: Acute Code(s): K92.2 - Gastrointestinal hemorrhage, unspecified (2) Anemia Status: Acute Code(s): D64.9 - Anemia, unspecified (3) Melena Status: Acute Code(s): K92.1 - Melena - Plan This patient is an 82-year-old female with past medical history significant for GI bleeding, atrial fibrillation as per documentation, last dose of Plavix taken on 08/10/2018, carotid stenosis, high blood pressure, hyperlipidemia and dementia. Patient was brought in to [facility] on 08/10/2018 by her who reported patient has had black tarry stools for 3 days. Patient was admitted to [facility] for evaluation and transfusion. Upon arrival to hospital, patient's hemoglobin noted to be 6.5 hematocrit 19.2. Patient endorses generalized weakness but denies any nausea vomiting or abdominal pain upon consultation. 08/05/2018 EGD done and revealed the following findings= esophageal mucosa normal, medium nonbleeding deep, round, clean-based ulcer in the gastric antrum, normal duodenum. Our service has been consulted to evaluate patient for GI bleeding. GI bleed Anemia Melena stools Patient admitted to [facility] last evening for reported black tarry stools for the last 3 days. Upon admission, hemoglobin 6.5 hematocrit 19.2. Patient then transfused with 2 units of packed RBCs. History of atrial fibrillation, on Plavix. Last dose 08/10/2018. -08/11/2018 posttransfusion hemoglobin 10.7 hematocrit 30.7 platelet count 248 -08/05/2018 EGD revealed the following findings= esophagus-the mucosa of the esophagus appeared normal, stomach-medium size nonbleeding, deep, round and clean-based ulcer with a pigmented spot was found in the gastric antrum. Duodenum-duodenal mucosa appeared normal in the entire duodenum. 08/13/2018 Patient awake and alert, no reported GI bleeding. Patient denies dark stools. Denies abdominal pain nausea or vomiting. Hemoglobin 9.1 hematocrit 26.2 stable 08/11/2018 EGD revealed the following-the Z line was located, normal duodenal mucosa in the entire duodenum, large ulcer was found, retroflex views revealed a hiatal hernia Plan Diet as tolerated PPI EGD in 3 months Patient to follow-up post discharge with GI in 1 week Monitor for bleeding Supportive care Patient stable for discharge from GI standpoint This patient has been seen by myself and Dr. Ellis this note is written on his behalf - Attending Attestation Dr. Ellis
[2018-08-13] MEDS: Acetaminophen 325 MG Tablet PO PRN (22:28)
[2018-08-14] MEDS: Sod Chloride 0.9% Inj 1,000 ML IV.CONT SCH ×3 (02:00→12:18)
[2018-08-14] MEDS: Acetaminophen 325 MG Tablet PO PRN (03:59)
[2018-08-14] MEDS: Metoprolol Tartrate 25 MG Tablet PO SCH (08:02)
[2018-08-14] MEDS: Pantoprazole Inj 40 MG Vial IV.PUSH SCH (08:03)
[2018-08-14] MEDS: amLODIPine 10 MG Tablet PO SCH (08:03)
--- NOTE | 2018-08-14 09:48 | P.DS ---
Date of admission: 08/10/18 19:39 Primary care physician: Anam Klein DO Brief History from admission: patient is a 82 y/o female with history of hypertension, carotid stenosis, atrial fibrillation and dementia who was recently discharged from the hospital with anemia presented back to ER with melanotic stools which has been going on for a week. She was subsequently admitted for acute symptom medic anemia secondary to GI bleed. DS: Summary Hospital Course: 1. Acute symptomatically anemia secondary to GI bleed. This patient is an 82-year-old female with a diagnosis of hypertension, carotid stenosis, atrial fibrillation, dementia who presented to the hospital with complaints of black stools that been ongoing over the past week. She was subsequently admitted for acute symptomatic anemia secondary to GI bleed. Hemoglobin was as low as 6.5. The patient received PRBC transfusions and her hemoglobin has now been stable around 9. The patient underwent EGD which showed a gastric ulcer which was not actively bleeding. She also had a colonoscopy which showed diverticulosis, no active bleeding. I discussed the case with the kettle tender who believes this may have been a diverticular bleed. Recommendations are for the patient to have another EGD in 3 months. She can also follow-up outpatient with her primary care doctor in 1 week as well as gastroenterology in 1 week as per the recommendations. She will be discharged on a PPI. Plavix was held on admission which can now be continued on discharge as per Dr. Rojas. The patient was advised to seek medical attention if she begins to feel dizzy, has low blood pressure, or experiences black stools again. 2. Hypertension Continue home medications for high blood pressure. Metoprolol was added to the patient's blood pressure medication regimen. 3. Atrial fibrillation Patient has a documented diagnosis of atrial fibrillation. Currently she is on Plavix. Patient does have an elevated chads score however given her recent GI bleed anticoagulation would not be a good idea currently. I recommend that she follows up with her primary care doctor in a week and her atrial fibrillation as well as anti-correlation can be discussed further. 4. Carotid stenosis Continue Plavix. Follow-up with your primary care doctor in the next 1 week. Patient will be started on a statin. - Time Spent with Patient Total time spent providing and/or coordinating discharge services: Greater than 30 minutes Exam Vital signs: Vital Signs 08/13/18 12:00 08/13/18 16:00 08/13/18 20:00 Temperature 97.8 F 97.8 F Pulse Rate 87 92 H 85 Respiratory Rate 14 17 Blood Pressure 164/76 H 156/72 H Pulse Oximetry 98 99 08/14/18 00:00 08/14/18 04:00 08/14/18 04:30 Temperature 97.8 F 97.2 F L Pulse Rate 68 86 Respiratory Rate 17 17 20 Blood Pressure 169/81 H 173/77 H Pulse Oximetry 98 97 08/14/18 08:00 Temperature 97.8 F Pulse Rate 76 Respiratory Rate 16 Blood Pressure 204/89 H Pulse Oximetry 98 Intake & Output 08/13/18 08/14/18 08/14/18 18:59 06:59 18:59 Intake Total 1480 / 1480 2980 / 2980 Output Total 2650 / 2650 Balance 1480 / 1480 330 / 330 Weight 62 kg Intake: IV 1000 / 1000 2500 / 2500 NS Inj 1,000 ML @ 125 mls/hr IV 1000 / 1000 2500 / 2500 .CONT .Q8H SANDRA Rx#:[id number] Oral 480 / 480 480 / 480 Output: Urine 2650 / 2650 Other: # Voids 3 Date of Last Bowel Movement 08/13/18 08/13/18 # Bowel Movements 0 Narrative: General patient in no acute distress HEENT extraocular movements are intact, clear oropharyngeal mucosa, no JVD Cardiovascular S1-S2 audible, RRR, no murmurs rubs or gallops Respiratory clear to auscultation bilaterally Abdomen soft, nontender, nondistended, normal bowel sounds Extremities no edema 2+ distal pulses in bilateral upper and lower extremities Neuro cranial nerves II through XII intact Results Procedures completed during hospitalization: EGD Colonoscopy Labs on day of discharge: Labs from last 24 hours 08/13/18 09:45 Hgb 9.1 L Hct 26.2 L - Impressions ITS Impressions Abdomen X-Ray 08/10/18 17:55 CONCLUSION: No acute abnormality. GI Bleed Scan Nuclear Medicine 08/11/18 00:00 CONCLUSION: 1. Suboptimal study secondary to motion artifact. 2. No evidence of acute bleeding. Discharge Plan - Discharge Disposition Patient Disposition: 01 Discharge Home - Discharge Condition Condition: Stable - Discharge Order Discharge Orders: Discharge Order (Routine); Ordered 08/14/18 Ordered By: Kaley Bryant - Physicians Team Primary Care Provider: Anam Klein Attending Provider: Kaley Bryant Other Providers: Abhay Ellis MD ; Bernadine Colindres
[2018-08-14] MEDS ORDERED: Spironolactone 25 MG Tablet PO SCH (12:15)
[2018-08-14 12:24] VITALS: BP 153/77; PULSE 80; RESP 18; TEMP 97.2; O2SAT 99
--- NOTE | 2018-08-14 12:42 | MB ---
cc: Hai Pagan MD DATE: 08/14/2018 REASON FOR CONSULTATION: Recommendation regarding antiplatelets. HISTORY OF PRESENT ILLNESS: The patient is a pleasant 82-year-old woman with history of dementia and carotid stenosis for which she had been maintained on Plavix. 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 The patient and her daughter deny any knowledge of atrial fibrillation and atrial fibrillation is a diagnosed for her in the chart; but, it is unclear if this is accurate or factitious. The patient is ready to be discharged home following a GI bleed. I have been asked to comment on her antiplatelet use. She denies chest pain, shortness of breath, lightheadedness, dizziness, or syncope. PAST MEDICAL HISTORY: 1. Carotid stenosis. 2. Chart history of atrial fibrillation, but this remains on verified and family have no knowledge of this diagnosis. 3. Longstanding heart murmur. CURRENT MEDICATIONS: 1. Norvasc. 2. Lipitor. 3. Lopressor. 4. Protonix. ALLERGIES: SULFA AND MORPHINE. PHYSICAL EXAMINATION: VITAL SIGNS: Afebrile, pulse 74, respiratory rate 16, BP 204/89, saturating 95% on room air. GENERAL: Pleasant, elderly woman, in no distress. NECK: No JVD. LUNGS: Clear to auscultation bilaterally. CARDIOVASCULAR: Regular rate and rhythm, a 2/6 systolic murmur is appreciated. ABDOMEN: Benign. EXTREMITIES: No edema. LABORATORY DATA: White count 10.9, hemoglobin 9.1, platelets 264. Sodium 140, potassium 3.0, chloride 108, bicarbonate 24.3, BUN 9, creatinine 0.51. EKG from 08/09/2018 with sinus rhythm. IMPRESSION: 1. Antiplatelet recommendation. The patient had been maintained on Plavix for her carotid stenosis, which seems reasonable if GI is comfortable with her bleeding risk following their procedure. 2. Murmur. Her murmur sounds moderate and can be worked up as an outpatient once her prior records are obtained. I did give her my business card and she can follow up with me in the office. 3. Hypertension. She is quite hypertensive here. She also has been quite hypokalemic. I will add Aldactone, which should help both these issues, but perhaps the primary team can further titrate her medications prior to discharge. I will sign off and be available as needed. Thank you again for the opportunity to participate in this patient's care. MD BETINA Clinton/jeremy , 11:15 AM , 11:24 AM
== END 2018-08-14 17:42 | disposition home or self-care (01) ==
LOC: NEPC 17:00 → NEDA 19:39 → N06 21:49 → N04 08-11 18:37
PROVIDERS: ADMIT Hospitalist; ATTEND Hospitalist
PROC: PANENDO (2018-08-11 12:35)
PROC: COLONOS (2018-08-12 12:07)